=== PATIENT | female | born 1960 ===

== ENCOUNTER 2024-09-25 14:07 | Outpatient (OUT) | payer OTHER, SELFPAY ==
--- OUTSIDE RECORDS SUMMARY | 2020-07-05 07:30 | XMS_ITS | Continuity of Care Document ---
Author Organization [facility] Address [address] [place] [id number] Phone Care Team Providers Care Division Leader Name Role Phone Sherry MUNOZMo Unavailable Unavailable Allergies, Adverse Reactions, Alerts Substance Reaction Status Criticality No Known Allergies Active No Inform ation Medications Medication Instructions Dosage Effective Dates (start - stop) Status Comments amoxicillin 500 mg tablet take 1 tablet by oral route every 8 hours 500 MG - Active atorvastatin 40 mg tablet take 1 tablet by oral route every day 40 MG - Active iron 18 mg tablet - Active Multi Vitamin 9 mg iron/15 mL oral liquid - Active nitroglycerin 0.4 mg/hr transdermal 24 hour patch apply 1 patch by transdermal route every day remove at night for 10-12 hours 1.00 patch - Active metoprolol succinate ER 50 mg tablet,extended release 24 hr take 1 tablet by oral route every day 50 MG - Active lisinopril 5 mg tablet take 1 tablet by oral route every day 5 MG - Active Lasix 20 mg tablet take 1 tablet by oral route every day 20 MG - Active potassium 99 mg tablet - Active Procedures Procedure Date Moderna COVID Vaccine Admin Dose 2 Moderna COVID-19 Vaccine Moderna COVID Vaccine Admin Dose 1 Moderna COVID-19 Vaccine CHIROPRACTIC MANIPULATION CHIROPRACTIC MANIPULATION CHIROPRACTIC MANIPULATION CHIROPRACTIC MANIPULATION CHIROPRACTIC MANIPULATION Limited Oral Eval Panoramic Film Extract; Erupted Th/exposted Rt 020 Intraoral-periapical 1st Film 0 Oral Hygiene Instruction Limited Oral Eval Intraoral-periapical 1st Film 7 Initial Oral Exam IMMUNIZATION ADMIN FLU VAC NO PRSV 4 MARIN 3 YRS+ IMMUNIZATION ADMIN FLU VAC NO PRSV 4 MARIN 3 YRS+ Prophylaxis Adult Oral Hygiene Instruction Comp Oral Eval New/estab Patient 2016 FLU VAC NO PRSV 4 MARIN 3 YRS+ IMMUNIZATION ADMIN FLU VAC NO PRSV 4 MARIN 3 YRS+ Advance Directives Directive Yes / No Effective Date File Name No Information Encounters Encounter Description Practice Location Reason(s) For Visit Diagnoses Date Provider Providers Copied on Encounter [facility], [address] [place] [address], [id number] , tel:[phone] [facility] No Information Jul-0 1 Jaimei DO Hassan. [address] [place] [address], [id number], [place]. tel:[phone] [facility], [address] [place] [address], [id number] , tel:[phone] [facility] No Information 0 1 Sherry Santiago. [address] [place] [address], [id number], [place]. tel:[phone] [facility], [address] [place] [address], [id number] , [place] tel:[phone] [facility] lumbar spine (chief complaint) lumbar spine (chief complaint) Segmental and somatic dysfunction of lumbar regionLow back painSegmental and somatic dysfunction of cervical regionCervicalgi a 1 Landen Chow. [address] [place] [address], [id number], [place]. tel:[phone] [facility], [address] [place] [address], [id number] , tel:[phone] [facility] lumbar spine (chief complaint) lumbar spine (chief complaint) Segmental and somatic dysfunction of lumbar regionLow back painSegmental and somatic dysfunction of cervical regionRadiculopa thy, cervical region 0 Landen Chow. [address] [place], [place], [id number], [place]. tel:[phone] [facility], [address] [place] [address], [id number] , tel: [phone] [facility] cervical spine (chief complaint) cervical spine (chief complaint) Segmental and somatic dysfunction of lumbar regionLow back painSegmental and somatic dysfunction of cervical regionRadiculopa thy, cervical region 0 Landen Chow. [address] [place] [address], [id number], [place]. tel:[phone] [facility], [address] [place] [address], [id number] , tel:[phone] [facility] lumbar spine (chief complaint) lumbar spine (chief complaint) Segmental and somatic dysfunction of lumbar regionRadiculopa thy, lumbar regionSegmental and somatic dysfunction of cervical regionRadiculopa thy, cervical region 0 Landen Chow. [address] [place] [address], [id number], [place]. tel:[phone] [facility], [address] [place] [address], [id number] , tel: [phone] [facility] lumbar spine (chief complaint) lumbar spine (chief complaint) Segmental and somatic dysfunction of lumbar regionRadiculopa thy, lumbar regionSegmental and somatic dysfunction of cervical regionRadiculopa thy, cervical region 0 Landen Chow. [address] [place] [address], [id number], [place]. tel:[phone] [facility], [address] [place] [address], [id number] , tel:[phone] [facility] Ext. (chief complaint) Encounter for screening for dental disorders 0 Martinez DMD Latonia. [address], [place], [id number], [place]. tel:[phone] [facility], [address] [facility], [place], [place], [id number] , [place] tel:[phone] Dental Clinic Encounter for screening for dental disorders 0 Martinez DMD [place]. [address] [facility], [place], [place], [id number], [place]. tel:[phone] [facility], [address] [facility], [place], [place], [id number] , [place] tel: [phone] [facility] dental limited (chief complaint) Encounter for screening for dental disorders 7 Trevon tanner DMD [place] . [address] [place], [address], [place]. tel:[phone] [facility], [address] [place], [place], [id number] , [place] tel: [phone] [facility] prophy (chief complaint) Encounter for screening for dental disorders 7 Sherry Santiago. [address] [place], [place], [id number], [place]. tel:[phone] [facility], [address] [place], [place], [id number] , [place] tel:[phone] Dental Clinic Encounter for screening for dental disorders 7 Bret ORO Jinbo. [address] [place], [address], [place]. tel:[phone] [facility], [address] [place], [place], [id number] , [place] tel:[phone] Dental Clinic Encounter for screening for dental disorders 7 Bret ORO Jinbo. [address] [place], [address], [place]. tel:[phone] [facility], [address] [place], [place], [id number] , [place] tel:[phone] [facility] No Information 5 Sherry Santiago. [address] [place] [address], [id number], [place]. tel:[phone] Family History Family Member Type Diagnosis Age At Onset Mother Problem (finding) coronary arterioscleros is Father Problem (finding) Oral Cancer (Cause Of D eath) 68 Immunizations Vaccine Date Status Comments Moderna COVID administered Source: New Im munization Record Moderna COVID administered Source: New Im munization Record Influenza virus vaccine, injectable, quadrivalent, split virus, preservative free, 3 years or older Fluarix, Flulaval or Fluzone Quad administered Source: New Immuniza tion Record Influenza virus vaccine, injectable, quadrivalent, split virus, preservative free, 3 years or older Fluarix, Flulaval or Fluzone Quad administered Source: New Immuniza tion Record Payers Payer name Insurance type Covered republican ID Authoriza tion(s) [employer] [id number] [employer] [id number] [employer] [id number] Social History Type Description Quantity Date Captured Comments Alcohol Use Details Unknown Caffeine Use Details Unknown Tobacco Use Status No Information Smoking Status No Information Sex Female Sexual Orientation Straight or heterosexual Gender Identity Female Chief Complaint And Reason For Visit No Information Reason For Referral Reason For Referral No Information History Of Present Illness Encounter Date Complaint History Of Prese nt Illness lumbar spine lumbar spine Pt reports flare up of neck, mid and low back pain for last two weeks. Prednisone for 5 days helped but pain returned. lumbar spine lumbar spine Pt reports sligh t improvement since last visit. cervical spine cervical spine Pt reports doing better overall though mentions low back soreness today. lumbar spine lumbar spine Pt reports doing well after first visit with no adverse effects. lumbar spine lumbar spine C/O chronic low back and neck pain that extends down post leg on left and causes numbness/tingling in hands. She described the original onset as 10 years ago. She has a tens unit implant in lower back on left.Sx are the result of regular ADL'S. No specific injury or trauma is noted. Pain is primarily at L3-L5 PVM on the Rt. & Lt. and extends to the SI joint, Rt. & Lt. Pain is local, dull, with radiation to the lower extremities. No sensory or motor changes noted. Symptoms present with a pain scale of 9 (VAS = 1-10). Pain interferes with regular ADL's. Increase in pain with movement/ROM and ADL'S. Some decrease in symptoms with rest. No change in the pain pattern from the onset of symptoms. Pain pattern is as prior times. Ext. dental limited dental limited prophy Functional Status Date Functional Assessmen t No Information Instructions Date Instruction Additional Infor mation No Information Assessments Type Assessment Date No Information Patient Care Teams Name Effective Dates (start - stop) Status Members No Information
--- OUTSIDE RECORDS SUMMARY | 2024-09-25 14:10 | XMS_ITS | Encounter Summary ---
Author Organization [facility] Address [address] [place] [address] Care Team Providers Care Diabetes Clinical Manager Name Role Phone CruzTerri bolañosalejandro Lo DO Primary Care Provider Source Comments In the event this information is protected by the Federal Confidentiality of Alcohol and Drug AbusePatient Records regulations: The Federal rules restrict any use of the information to criminally investigate or prosecute any alcohol or drug abuse patient.[facility] Encounter Details Date Type Department Care Team (Late st Contact Info) Description 12/26/2018 Get Medical Advice Pain Management [address] [place] [address] Nelson Damon MD [address] [place] [address] RE: Visit Follow Up Question Social History Tobacco Use Types Packs/Day Years Used Date Smoking Tobacco: Former Cigarettes Q uit: 06/11/2010 Smokeless Tobacco: Never Alcohol Use Standard Drinks/Week Comments No 0 (1 standard drink = 0.6 oz pur e alcohol) occasionally Comments No Sex and Gender Information Value Date Recorded Sex Assigned at Not on file Legal Sex Female 10:13 AM EST Gender Identity Not on file Sexual Orientation Not on file 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 Answer Date of Assessment Author No 09/28/2014 2:37 PM EDT Junior Lyons LPN * Are you blind or do you have serious difficulty seeing, even when wearing glasses? Answer Date of Assessment Author No 09/28/2014 2:37 PM EDT Junior Lyons LPN * Do you have serious difficulty walking or climbing stairs? Answer Date of Assessment Author Yes 09/28/2014 2:37 PM EDT Junior Lyons LPN * Do you have difficulty dressing or bathing? Answer Date of Assessment Author No 09/28/2014 2:37 PM EDT Junior Lyons LPN * Because of a physical, mental, or emotional condition, do you have difficulty doing errands alone such as visiting a doctor's office or shopping? Answer Date of Assessment Author No 09/28/2014 2:37 PM EDJunior Ronquillo LPN documented as of this encounter Mental Status * Because of a physical, mental, or emotional condition, do you have serious difficulty concentrating, remembering, or making decisions? Answer Entry Date Author No 09/28/2014 2:37 PM EDJunior Ronquillo LPN documented in this encounter Plan of Treatment Not on file documented as of this encounter Visit Diagnoses Not on filedocumented in this encounter Care Teams Diabetes Clinical Manager Relationship Specialty Start Date End Date Emily Cruz DO PCP - General Family Medicine 05/08/11 documented as of this encounter
--- OUTSIDE RECORDS SUMMARY | 2024-09-25 14:10 | XMS_ITS | Encounter Summary ---
Author Organization [facility] Address [address] [place] [address] Care Team Providers Care Rolls Baker Name Role Phone CruzTerri bolañosalejandro Lo DO Primary Care Provider Source Comments In the event this information is protected by the Federal Confidentiality of Alcohol and Drug AbusePatient Records regulations: The Federal rules restrict any use of the information to criminally investigate or prosecute any alcohol or drug abuse patient.[facility] Encounter Details Date Type Department Care Team (Late st Contact Info) Description 10/27/2019 Get Medical Advice Pain Management [id number] [place] [address] Nelson Damon MD [address] [place] [address] RE: Visit Follow Up Question Social History Tobacco Use Types Packs/Day Years Used Date Smoking Tobacco: Former Cigarettes Q uit: 06/11/2010 Smokeless Tobacco: Never Alcohol Use Standard Drinks/Week Comments No 0 (1 standard drink = 0.6 oz pur e alcohol) occasionally PHQ-2 Answer Date Recorded PHQ-2 score 5 04/21/2019 Comments No Sex and Gender Information Value Date Recorded Sex Assigned at Not on file Legal Sex Female 10:13 AM EST Gender Identity Not on file Sexual Orientation Not on file 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 No / Unsure 10/26/2019 10:38 AM EDT documented as of this encounter Functional Status * Are you deaf or do you have serious difficulty hearing? Answer Date of Assessment Author No 09/28/2014 2:37 PM EDT Junior Lyons LPN * Are you blind or do you have serious difficulty seeing, even when wearing glasses? Answer Date of Assessment Author No 09/28/2014 2:37 PM EDT Junoir Lyons LPN * Do you have serious [...] 09/28/2014 2:37 PM EDT Junior Lyons LPN documented as of this encounter Mental Status * Because of a physical, mental, or emotional condition, do you have serious difficulty concentrating, remembering, or making decisions? Answer Entry Date Author No 09/28/2014 2:37 PM EDT Junior Lyons LPN documented in this encounter Plan of Treatment Not on file documented as of this encounter Visit Diagnoses Not on filedocumented in this encounter Care Teams Rolls Baker Relationship Specialty Start Date End Date Emily Cruz DO PCP - General Family Medicine 05/08/11 documented as of this encounter
--- OUTSIDE RECORDS SUMMARY | 2024-09-25 14:10 | XMS_ITS | Encounter Summary ---
Author Organization [facility] Address [address] [place] [address] Care Team Providers Care Patient Ombudsperson Name Role Phone CruzTerri bolañoscey Teresita Primary Care Provider Source Comments In the event this information is protected by the Federal Confidentiality of Alcohol and Drug AbusePatient Records regulations: The Federal rules restrict any use of the information to criminally investigate or prosecute any alcohol or drug abuse patient.[facility] Encounter Details Date Type Department Care Team (Late st Contact Info) Description 08/30/2018 Get Medical Advice Pain Management [id number] [place] [phone] Louise Suazo PA-C RE: Upcoming Appointment Question Social History Tobacco Use Types Packs/Day [...] 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 Answer Date of Assessment Author No 09/28/2014 2:37 PM EDT Junior Lyons yuri M, SUGAR REPROCESS OPERATOR HEAD * Are you blind or do you have serious difficulty seeing, even when wearing glasses? Answer Date of Assessment Author No 09/28/2014 2:37 PM EDT Junior Lyons yuri Tobin, SUGAR REPROCESS OPERATOR HEAD * Do you have serious difficulty walking or climbing stairs? Answer Date of Assessment Author Yes 09/28/2014 2:37 PM EDT Junior Lyons yuri Tobin, SUGAR REPROCESS OPERATOR HEAD * Do you have difficulty dressing or bathing? Answer Date of Assessment Author No 09/28/2014 2:37 PM EDT Junior Lyons yuri Tobin, SUGAR REPROCESS OPERATOR HEAD * Because of a physical, mental, or emotional condition, do you have difficulty doing errands alone such as visiting a doctor's office or shopping? Answer Date of Assessment Author No 09/28/2014 2:37 PM EDT Junior Lyons yuri Tobin, SUGAR REPROCESS OPERATOR HEAD documented as of this encounter Mental Status * Because of a physical, mental, or emotional condition, do you have serious difficulty concentrating, remembering, or making decisions? Answer Entry Date Author No 09/28/2014 2:37 PM EDT Junior Lyons yuri M, SUGAR REPROCESS OPERATOR HEAD documented in this encounter Miscellaneous Notes * Telephone Encounter - Maeve Barakat RN - 08/30/2018 3:02 PM EDT Office visit 08/25/18, 1) Suture removal performed today 2) RTC in 4 weeks for follow-up visit with YON. She needs programming adjustment with [employer]. 3) Counseled patient regarding the importance of activity modification. ??Appointment 08/31/18. Maeve Barakat RN documented in this encounter Plan of Treatment Not on file documented as of this encounter Visit Diagnoses Not on filedocumented in this encounter Care Teams Patient Ombudsperson Relationship Specialty Start Date End Date Emily Cruz DO PCP - General Family Medicine 05/08/11 documented as of this encounter
--- OUTSIDE RECORDS SUMMARY | 2024-09-25 14:10 | XMS_ITS | Encounter Summary ---
Author Organization [facility] Address [address] [place] [address] Care Team Providers Care Machine Precision Etcher Name Role Phone Cruz Emily Lo DO Primary Care Provider Source Comments In the event this information is protected by the Federal Confidentiality of Alcohol and Drug AbusePatient Records regulations: The Federal rules restrict any use of the information to criminally investigate or prosecute any alcohol or drug abuse patient.[facility] Encounter Details Date Type Department Care Team (Late st Contact Info) Description 06/11/2020 Get Medical Advice Pain Management [id number] [place] [phone] Louise Suazo PA-C Visit Follow Up Question Social History Tobacco Use Types Packs/Day Years Used Date Smoking Tobacco: Former Cigarettes Q uit: 06/11/2010 Smokeless Tobacco: Never Alcohol Use Standard Drinks/Week Comments No 0 (1 standard drink = 0.6 oz pur e alcohol) occasionally PHQ-2 Answer Date Recorded PHQ-2 score 5 04/21/2019 Area Deprivation Index Answer Date Ramiro rded National Score (1-100), lower number is lower ri sk Not on file 03/09/2020 State Score (1-10), lower number is lower risk N ot on file 03/09/2020 Data from: https://www.neighborhoodatlas.medicine.[facility]/. 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 No / Unsure 06/11/2020 1:48 PM EST documented as of this encounter Functional Status * Are you deaf or do you have serious difficulty hearing? Answer Date of Assessment Author No 09/28/2014 2:37 PM Junior Correia LPN * Are you blind or do you have serious difficulty seeing, even when wearing glasses? Answer Date of Assessment Author No 06/11/2020 5:20 PM EST Louise Suazo PA-C * Do you have serious difficulty walking or climbing stairs? Answer Date of Assessment Author No 06/11/2020 5:20 PM EST Louise Suazo PA-C * Do you have difficulty dressing or bathing? Answer Date of Assessment Author No 06/11/2020 5:20 PM EST Louise Suazo PA-C * Because of a physical, mental, or emotional condition, do you have difficulty doing errands alone such as visiting a doctor's office or shopping? Answer Date of Assessment Author No 06/11/2020 5:20 PM EST Louise Suazo PA-C documented as of this encounter Mental Status * Because of a physical, mental, or emotional condition, do you have serious difficulty concentrating, remembering, or making decisions? Answer Entry Date Author No 06/11/2020 5:20 PM Louise Gaston PA-C documented in this encounter Plan of Treatment Not on file documented as of this encounter Visit Diagnoses Not on filedocumented in this encounter Care Teams Machine Precision Etcher Relationship Specialty Start Date End Date Emily Cruz DO PCP - General Family Medicine 05/08/11 documented as of this encounter
--- OUTSIDE RECORDS SUMMARY | 2024-09-25 14:10 | XMS_ITS | Encounter Summary ---
Author Organization [facility] Address [address] [place] [address] Care Team Providers Care Health Care Recruiter Name Role Phone CruzTerri bolañoscey Teresita Primary Care Provider Source Comments In the event this information is protected by the Federal Confidentiality of Alcohol and Drug AbusePatient Records regulations: The Federal rules restrict any use of the information to criminally investigate or prosecute any alcohol or drug abuse patient.[facility] Encounter Details Date Type Department Care Team (Late st Contact Info) Description 12/30/2018 Get Medical Advice Pain Management [phone] [place] [phone] Louise Suazo PA-C RE: Visit Follow Up Question Social History [...] 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 Answer Date of Assessment Author Yes 09/28/2014 2:37 PM EDT Junior Lyons, GI TECHNICIAN * Do you have difficulty dressing or bathing? Answer Date of Assessment Author No 09/28/2014 2:37 PM EDT Junior Lyons, GI TECHNICIAN * Because of a physical, mental, or [...] on filedocumented in this encounter Care Teams Health Care Recruiter Relationship Specialty Start Date End Date Emily Cruz DO PCP - General Family Medicine 05/08/11 documented as of this encounter
--- OUTSIDE RECORDS SUMMARY | 2024-09-25 14:10 | XMS_ITS | Encounter Summary ---
Author Organization [facility] Address [address] [place] [address] Care Team Providers Care Relay Tester Helper Name Role Phone Cruz, Emily Lo DO Primary Care Provider Source Comments In the event this information is protected by the Federal Confidentiality of Alcohol and Drug AbusePatient Records regulations: The Federal rules restrict any use of the information to criminally investigate or prosecute any alcohol or drug abuse patient.[facility] Encounter Details Date Type Department Care Team (Late st Contact Info) Description 10/07/2020 Get Medical Advice Pain Management [address] [phone] Louise Suazo PA-C RE: Visit Follow Up [...] N ot on file 03/09/2020 Data from: https://www.neighborhoodatlas.medicine.[facility]/. 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 Unable to assess 10/02/2020 12:55 PM EDT documented as of this encounter Functional [...] of Assessment Author No 06/11/2020 5:20 PM Louise Gaston PA-C * Do you have difficulty dressing or bathing? Answer Date of Assessment Author No 06/11/2020 5:20 PM Louise Gaston PA-C * Because of a physical, mental, or emotional condition, do you have difficulty doing errands alone such as visiting a doctor's office or shopping? Answer Date of Assessment Author No 06/11/2020 5:20 PM Louise Gaston PA-C documented as of this encounter Mental Status * Because of a physical, mental, or emotional condition, do you have serious difficulty concentrating, remembering, or making decisions? Answer Entry Date Author No 06/11/2020 5:20 PM EST Keriotis, Louise, PA-C documented in this encounter Plan of Treatment Not on file documented as of this encounter Visit Diagnoses Not on filedocumented in this encounter Care Teams Relay Tester Helper Relationship Specialty Start Date End Date Emily Cruz DO PCP - General Family Medicine 05/08/11 documented as of this encounter
--- OUTSIDE RECORDS SUMMARY | 2024-09-25 14:10 | XMS_ITS | Encounter Summary ---
Author Organization [facility] Address [address] [place] [address] Care Team Providers Care Chief Ophthalmic Technician Name Role Phone CruzTerri bolañosalejandro Lo DO Primary Care Provider Source Comments In the event this information is protected by the Federal Confidentiality of Alcohol and Drug AbusePatient Records regulations: The Federal rules restrict any use of the information to criminally investigate or prosecute any alcohol or drug abuse patient.[facility] Encounter Details Date Type Department Care Team (Late st Contact Info) Description 11/16/2017 Get Medical Advice Pain Management [address] [place] [address] Nelson Damon MD [address] [place] [address] RE: Visit Follow Up Question [...] 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
--- OUTSIDE RECORDS SUMMARY | 2024-09-25 14:10 | XMS_ITS | Encounter Summary ---
Author Organization [facility] Address [address] [place] [address] Care Team Providers Care Police Crime Scene Technician Name Role Phone CruzTerri bolañoscey Teresita DO Primary Care Provider Source Comments In the event this information is protected by the Federal Confidentiality of Alcohol and Drug AbusePatient Records regulations: The Federal rules restrict any use of the information to criminally investigate or prosecute any alcohol or drug abuse patient.[facility] Encounter Details Date Type Department Care Team (Late st Contact Info) Description 04/06/2019 Get Medical Advice Pain Management [id number] [phone] Louise Suazo PA-C RE: Upcoming Appointment Question Social History Tobacco Use Types Packs/Day Years Used Date Smoking Tobacco: Former Cigarettes Q uit: 06/11/2010 Smokeless Tobacco: Never Alcohol Use Standard Drinks/Week Comments No 0 (1 standard drink = 0.6 oz pur e alcohol) occasionally PHQ-2 Answer Date Recorded PHQ-2 Score 0 04/02/2019 Comments No Sex and Gender Information Value Date Recorded Sex Assigned at Not on file Legal Sex Female 10:13 AM EST Gender Identity Not on file Sexual Orientation Not on file 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 She is currently taking Lyrica 50mg BID. States she has much less relief than when she was taking the neurontin and cymbalta. Has follow up on 04/21/2019, but needs refill until then. documented in this encounter Plan of Treatment Not on file documented as of this encounter Visit Diagnoses Not on filedocumented in this encounter Care Teams Police Crime Scene Technician Relationship Specialty Start Date End Date Emily Cruz DO PCP - General Family Medicine 05/08/11 documented as of this encounter
--- OUTSIDE RECORDS SUMMARY | 2024-09-25 14:10 | XMS_ITS | Encounter Summary ---
Author Organization [facility] Address [address] [place] [address] Care Team Providers Care Ammonia Box Operator Name Role Phone CruzTerri bolañosalejandro Lo DO Primary Care Provider Source Comments In the event this information is protected by the Federal Confidentiality of Alcohol and Drug AbusePatient Records regulations: The Federal rules restrict any use of the information to criminally investigate or prosecute any alcohol or drug abuse patient.[facility] Encounter Details Date Type Department Care Team (Late st Contact Info) Description 09/30/2020 Get Medical Advice Pain Management [address] [place] [address] Nelson Damon MD [address] [place] [address] Visit Follow Up Question Social History Tobacco [...] N ot on file 03/09/2020 Data from: https://www.neighborhoodatlas.medicine.[facility]/. 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
--- OUTSIDE RECORDS SUMMARY | 2024-09-25 14:10 | XMS_ITS | Clinical Summary ---
Author Organization [facility] Address [address] [place] [address] Care Team Providers Care Cooler Worker Name Role Phone Sriram Kunz MD Unavailable Kyle Norwood MD Primary Care Provider [phone] Abel Nunez DO Unavailable Unatirnidadi Byron Herman MD Unavailable Unavailabl e Allergies No known active allergies Medications meloxicam (MOBIC) 15 MG Tab take 15 mg by mouth daily.. Takes every day. Active gabapentin 400 MG Cap take 800 mg by mouth 4 times daily. Active atorvastatin 80 MG Tab take 1 tablet by mouth at bedtime.. 30 tablet 6 Active metoprolol 25 MG tab regular release take 1 tablet by mouth every 12 hours.. 60 tablet 6 Active furOSEmide 40 MG Tab Take 40 mg (one tab) TWICE a day for one week. Starting 10/30 take 40 mg (one tab) ONCE a day until changed by your physician 45 tablet 6 Active ferrous sulfate 324 (65 FE) MG Tab DR take 1 tablet by mouth 3 times daily.. 90 tablet 6 Active docusate 100 MG Cap take 1 capsule by mouth 2 times daily as needed.. 60 capsule 6 Active Multiple Vitamin (MULTIVITAMIN) Tab take 1 tablet by mouth daily.. 30 tablet 6 Active potassium chloride 20 MEQ Tab CR Take 20 mEq (one tab) TWICE a day for one week. Starting 10/30 take 20 mEq (one tab) ONCE a day until changed by your physician Do not take potassium if / when your physician stops your lasix 45 tablet 3 6 Active AMIOdarone 200 MG Tab take 1 tablet by mouth daily.. 30 tablet 1 6 Active oxyCODONE-aceta minophen 5-325 MG Tab take 1 tablet by mouth every 8 hours as needed for Severe Pain.. 40 tablet 6 Active cephALEXin 500 MG Cap take 500 mg by mouth every 6 hours.. Active Active Problems Problem Noted Date Diagnosed Date Troponin level elevated 10/14/2015 Overview (10/14/2015): Normal ECG Hypertension 10/14/2015 Family History Medical History Relation Name Comments Cancer Father at 75 Myocardial Infarction Mother 79 y/o ; CAD with stents Heart Surgery Sister CABG x 4 Relation Name Status Comments Father Mother Alive Sister Alive Social History Tobacco Use Types Packs/Day Years Used Date Smoking Tobacco: Former Cigarettes 0.2 4 Comments No Sex and Gender Information Value Date Recorded Sex Assigned at Not on file Legal Sex Female 6:56 AM EDT Gender Identity Female 11/24/2016 4:39 PM EDT Sexual Orientation Not on file Last Filed Vital Signs Vital Sign Reading Time Taken Comments Blood Pressure 113/74 11/20/2015 3:20 PM EDT Pulse 71 11/20/2015 3:20 PM EDT Temperature 36.9 C (98.4 F) 11/20/2015 3:20 PM EDT Respiratory Rate 16 11/20/2015 3:20 PM EDT Oxygen Saturation 98% 11/20/2015 3:20 PM EDT Inhaled Oxygen Concentration - - Weight 79.8 kg (176 lb) 11/20/2015 3:20 PM EDT Height 162.6 cm (5' 4 ) 11/20/2015 3:20 PM EDT Body Mass Index 30.21 11/20/2015 3:20 PM EDT Plan of Treatment Health Maintenance Due Date Last Done Comments HEPATITIS C VIRUS SCREENING 1960 TETANUS 1960 HIV SCREENING DISCUSSION 1975 TDAP (ADULT) 1979 CERVICAL CANCER SCREENING DISCUSSION 1981 MAMMOGRAM SCREENING DISCUSSION 2000 COLORECTAL CANCER SCREENING DISCUSSION 2005 PNEUMOCOCCAL VACCINE SERIES (1 of 1 - PCV) 2010 ZOSTER (SHINGLES) VACCINE (1 of 2) 2010 LIPID SCREENING 10/14/2020 10/15/2015 COVID-19 VACCINE (1 - 2023-2 5 season) 2023 INFLUENZA VACCINE (Season Ended) 2024 RSV VACCINE (1 - 1-dose 75+ series) 2035 HEP B VACCINE Aged Out No longer elig ible based on patient's age to complete this topic Procedures Procedure Name Priority Date/Time Associated Diagnosis Comments LIPID PANEL W CALCULATED LDL Routine 10/15/2015 1:50 AM EDT from Last 3 Months or Most Recently Relevant to Health Maintenance Results * (ABNORMAL) LIPID PANEL W CALCULATED LDL (10/15/2015 1:50 AM EDT) CHOLESTEROL 183 <200 mg/dL [facility] Comment: [<200 mg/dL: Desirable] [200-239 mg/dL: Borderline High] [>239 mg/dL: High] TRIGLYCERIDES-TR IGE 187(H) <150 mg/dL [facility] Comment: [<150 mg/dL: Desirable] [150-199 mg/dL: Borderline] [200-499 mg/dL: High] [>500 mg/dL: Very High] HDL CHOLESTEROL 35(L) >60.0 mg/dL [facility] Comment: [<40 mg/dL: Low (High Risk)] [>59 mg/dL: High (Low Risk)] LDL CHOLESTEROL, CALCULATED 111(H) 0 - 99 mg/dL [facility] Comment: [<100 mg/dL: Optimal] [100-129 mg/dL: Near Optimal] [130-159 mg/dL: Borderline High] [160-189 mg/dL: High] [>189 mg/dL: Very High] CHOLESTEROL, TOTAL/HDL 5.2(H) <4.5 [facility] Comment:[<4.5: Low risk] NON-HDL CHOLESTEROL (CHOL-HDL) 148(H) <130 mg/dL [facility] 10/15/2015 1:50 AM EDT 10/15/2015 2:31 AM EDT us Mckenzie Rangel MD CHEMISTRY ORDERABLES Final Resul t [facility], [facility] [address] [place] [address] from Last 3 Months or Most Recently Relevant to Health Maintenance Insurance MMO Member Subscriber Plan / Payer (Ef fective 2014-Present) Name:SHARON VILLAVICENCIO A Relation to Subscriber:Self Name:Sharon Villavicencio Payer ID:Not on file Type:Not on file Address: [place] [id number] Advance Directives For more information, please contact: [phone] (7:30 AM - 6PM [facility], Wednesday-Wednesday) * Full Code (Latest Code Status on File) Date Activated Date Inactivated Comments 10/17/2015 6:09 PM 10/23/2015 2:17 PM Care Teams Cooler Worker Relationship Specialty Start Date End Date Kyle Norwood MD PCP - General Family Medicine 10/18/15 Abel Nunez DO PCP - Referring 1 Cardiovascular Disease 10/18/15 Sriram Kunz MD Cardiac Surgery 10/15/15 Byron Otoole MD Assistant Finance Director Cardiovascular Disease 11/18/15
--- OUTSIDE RECORDS SUMMARY | 2024-09-25 14:10 | XMS_ITS | Encounter Summary ---
Author Organization [facility] Address [address] [place] [address] Care Team Providers Care Paver Name Role Phone CruzTerri bolañosalejandro Lo DO Primary Care Provider Source Comments In the event this information is protected by the Federal Confidentiality of Alcohol and Drug AbusePatient Records regulations: The Federal rules restrict any use of the information to criminally investigate or prosecute any alcohol or drug abuse patient.[facility] Encounter Details Date Type Department Care Team (Late st Contact Info) Description 09/06/2020 Get Medical Advice Pain Management [address] [place] [address] Nelson Damon MD [address] [place] [address] Upcoming Appointment Question Social History Tobacco Use [...] N ot on file 03/09/2020 Data from: https://www.neighborhoodatlas.medicine.[facility]/. 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 No / Unsure 08/13/2020 1:23 PM EDT documented as of this encounter [...] on filedocumented in this encounter Care Teams Paver Relationship Specialty Start Date End Date Emily Cruz DO PCP - General Family Medicine 05/08/11 documented as of this encounter
--- OUTSIDE RECORDS SUMMARY | 2024-09-25 14:10 | XMS_ITS | Encounter Summary ---
Author Organization [facility] Address [address] [place] [address] Care Team Providers Care Steel Unloader Name Role Phone Cruz, Emily Lo DO Primary Care Provider Source Comments In the event this information is protected by the Federal Confidentiality of Alcohol and Drug AbusePatient Records regulations: The Federal rules restrict any use of the information to criminally investigate or prosecute any alcohol or drug abuse patient.[facility] Encounter Details Date Type Department Care Team (Late st Contact Info) Description 10/08/2020 Get Medical Advice Pain Management [address] [phone] Louise Suazo PA-C RE: Visit Follow Up [...] N ot on file 03/09/2020 Data from: https://www.neighborhoodatlas.medicine.[facility]/. 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
--- OUTSIDE RECORDS SUMMARY | 2024-09-25 14:10 | XMS_ITS | Encounter Summary ---
Author Organization [facility] Address [address] [place] [address] Care Team Providers Care Java Security Engineer Name Role Phone Curz, Emily Lo DO Primary Care Provider Source Comments In the event this information is protected by the Federal Confidentiality of Alcohol and Drug AbusePatient Records regulations: The Federal rules restrict any use of the information to criminally investigate or prosecute any alcohol or drug abuse patient.[facility] Encounter Details Date Type Department Care Team (Late st Contact Info) Description 09/30/2020 Get Medical Advice Pain Management [address] [phone] Louise Suazo PA-C RE: Visit Follow Up [...] N ot on file 03/09/2020 Data from: https://www.neighborhoodatlas.medicine.[facility]/. 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
--- OUTSIDE RECORDS SUMMARY | 2024-09-25 14:10 | XMS_ITS | Encounter Summary ---
Author Organization [facility] Address [address] [place] [address] Care Team Providers Care Flame Degreaser Name Role Phone Sriram Kunz MD Unavailable Kyle Norwood MD Primary Care Provider [phone] Abel Nunez DO Unavailable Unavai Byron Herman MD Unavailable Unavailabl e Reason for Visit * Reason Onset Date Comments Post-Discharge Follow Up 11/01/2015 At home without complaints. Currently working with physical therapy. Encounter Details Date Type Department Care Team (Late st Contact Info) Description 11/01/2015 Telephone [facility] [address] [place] [address] Rita Mcarthur RN Post-Discharge Follow Up (At home without complaints. Currently working with physical therapy.) Social History Tobacco Use Types Packs/Day Years Used Date Smoking Tobacco: Former Cigarettes 0.2 4 Comments No Sex and Gender Information Value Date Recorded Sex Assigned at Not on file Legal Sex Female 6:56 AM EDT Gender Identity Female 11/24/2016 4:39 PM EDT Sexual Orientation Not on file documented as of this encounter Functional Status * Are you deaf or do you have serious difficulty hearing? Answer Date of Assessment Author No 10/14/2015 6:00 PM EDT Lita Beach RN * Are you blind or do you have serious difficulty seeing, even when wearing glasses? Answer Date of Assessment Author No 10/14/2015 6:00 PM EDT Lita Beach RN * Do you have serious difficulty walking or climbing stairs (5 years or older)? Answer Date of Assessment Author No 10/14/2015 6:00 PM EDT Lita Beach RN * Do you have difficulty dressing or bathing (5 yrs or older)? Answer Date of Assessment Author No 10/14/2015 6:00 PM Lita England RN * Because of a physical, mental, or emotional condition, do you have difficulty doing errands alone such as visiting a doctor's office or shopping (5 yrs or older)? Answer Date of Assessment Author No 10/14/2015 6:00 PM Lita England RN documented as of this encounter Mental Status * Because of a physical, mental, or emotional condition, do you have serious difficulty concentrating, remembering, or making decisions (5 yrs or older)? Answer Entry Date Author No 10/14/2015 6:00 PM Lita England RN documented in this encounter Plan of Treatment Not on file documented as of this encounter Visit Diagnoses Not on filedocumented in this encounter Care Teams Flame Degreaser Relationship Specialty Start Date End Date Kyle Norwood MD PCP - General Family Medicine 10/18/15 Abel Nunez DO PCP - Referring 1 Cardiovascular Disease 10/18/15 Sriram Kunz MD Cardiac Surgery 10/15/15 Byron Otoole MD Solution Make Up Operator Cardiovascular Disease 11/18/15 documented as of this encounter
--- OUTSIDE RECORDS SUMMARY | 2024-09-25 14:10 | XMS_ITS | Encounter Summary ---
Author Organization [facility] Address [address] [place] [address] Care Team Providers Care Energy Professional Name Role Phone Cruz, Emily Lo DO [...] Care Team (Late st Contact Info) Description 08/19/2020 Get Medical Advice Pain Management [address] [phone] Louise Suazo PA-C RE: Visit Follow Up [...] N ot on file 03/09/2020 Data from: https://www.neighborhoodatlas.medicine.[facility]/. 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
--- OUTSIDE RECORDS SUMMARY | 2024-09-25 14:10 | XMS_ITS | Encounter Summary ---
Author Organization [facility] Address [address] [place] [address] Care Team Providers Care Director Insurance Name Role Phone CruzTerri bolañoscey Teresita Primary Care Provider Source Comments In the event this information is protected by the Federal Confidentiality of Alcohol and Drug AbusePatient Records regulations: The Federal rules restrict any use of the information to criminally investigate or prosecute any alcohol or drug abuse patient.[facility] Encounter Details Date Type Department Care Team (Late st Contact Info) Description 08/03/2018 Get Medical Advice Pain Management [address] [phone] Louise Suazo PA-C RE: Upcoming Appointment Question [...] 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 Answer Date of Assessment Author No 09/28/2014 2:37 PM EDT Junior Lyons, ENGINE LATHE OPERATOR * Are you blind or do you have serious difficulty seeing, even when wearing glasses? Answer Date of Assessment Author No 09/28/2014 2:37 PM EDT Junior Lyons, ENGINE LATHE OPERATOR * Do you have serious difficulty walking or climbing stairs? Answer Date of Assessment Author Yes 09/28/2014 2:37 PM EDT Junior Lyons, ENGINE LATHE OPERATOR * Do you have difficulty dressing or bathing? Answer Date of Assessment Author No 09/28/2014 2:37 PM EDT Junior Lyons, ENGINE LATHE OPERATOR * Because of a physical, mental, or emotional condition, do you have difficulty doing errands alone such as visiting a doctor's office or shopping? Answer Date of Assessment Author No 09/28/2014 2:37 PM EDT Junior Lyons, ENGINE LATHE OPERATOR documented as of this encounter Mental Status * Because of a physical, mental, or emotional condition, do you have serious difficulty concentrating, remembering, or making decisions? Answer Entry Date Author No 09/28/2014 2:37 PM EDT Junior Lyons LPN documented in this encounter Miscellaneous Notes * Telephone Encounter - Nabila Amanda I (Rn), RN - 08/05/2018 8:10 AM EDT Spoke with patient this morning who advised me that she spoke with Dr. Nunez yesterday regarding her blood thinner (Plavix). He told her to stop taking it. He will send a letter to that affect. Also told me that Dr. Nunez is taking her off this permanently and she will be going on baby aspirin after her surgery. Dr. Nunez# [phone] Nabila Amanda RN documented in this encounter Plan of Treatment Not on file documented as of this encounter Visit Diagnoses Not on filedocumented in this encounter Care Teams Director Insurance Relationship Specialty Start Date End Date Emily Cruz DO PCP - General Family Medicine 05/08/11 documented as of this encounter
--- OUTSIDE RECORDS SUMMARY | 2024-09-25 14:10 | XMS_ITS | Encounter Summary ---
Author Organization [facility] Address [address] [place] [address] Care Team Providers Care Ceramic Coater Machine Name Role Phone CruzTerri bolañosalejandro Lo DO Primary Care Provider Source Comments In the event this information is protected by the Federal Confidentiality of Alcohol and Drug AbusePatient Records regulations: The Federal rules restrict any use of the information to criminally investigate or prosecute any alcohol or drug abuse patient.[facility] Encounter Details Date Type Department Care Team (Late st Contact Info) Description 10/21/2020 Patient Msg Pain Management [address] [place] [address] Nelson Damon MD [address] [place] [address] Its always my pleasure Social History Tobacco Use Types Packs/Day Years [...] N ot on file 03/09/2020 Data from: https://www.neighborhoodatlas.medicine.[facility]/. 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 No / Unsure 10/17/2020 7:50 AM EDT documented as of this encounter [...] on filedocumented in this encounter Care Teams Ceramic Coater Machine Relationship Specialty Start Date End Date Emily Cruz DO PCP - General Family Medicine 05/08/11 documented as of this encounter
--- OUTSIDE RECORDS SUMMARY | 2024-09-25 14:10 | XMS_ITS | Encounter Summary ---
Author Organization [facility] Address [address] [place] [address] Care Team Providers Care Block Mason Name Role Phone CruzTerri bolañosalejandro Lo DO Primary Care Provider Source Comments In the event this information is protected by the Federal Confidentiality of Alcohol and Drug AbusePatient Records regulations: The Federal rules restrict any use of the information to criminally investigate or prosecute any alcohol or drug abuse patient.[facility] Encounter Details Date Type Department Care Team (Late st Contact Info) Description 10/20/2020 Get Medical Advice Pain Management [address] [place] [address] Nelson Damon MD [address] [place] [address] Visit Follow Up Question Social [...] N ot on file 03/09/2020 Data from: https://www.neighborhoodatlas.medicine.[facility]/. 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
--- OUTSIDE RECORDS SUMMARY | 2024-09-25 14:10 | XMS_ITS | Encounter Summary ---
Author Organization [facility] Address [address] [place] [address] Care Team Providers Care Warehouse Supervisor Name Role Phone Cruz, Emily Lo DO Primary Care Provider Source Comments In the event this information is protected by the Federal Confidentiality of Alcohol and Drug AbusePatient Records regulations: The Federal rules restrict any use of the information to criminally investigate or prosecute any alcohol or drug abuse patient.[facility] Encounter Details Date Type Department Care Team (Late st Contact Info) Description 03/15/2021 Get Medical Advice Pain Management [address] [place] [address] Nelson Damon MD [address] [place] [address] Pain over my back and my right leg Social History Tobacco Use Types Packs/Day Years Used Date Smoking Tobacco: Former Cigarettes Q uit: 06/11/2010 Smokeless Tobacco: Never Alcohol Use Standard Drinks/Week Comments No 0 (1 standard drink = 0.6 oz pur e alcohol) occasionally PHQ-2 Answer Date Recorded PHQ-2 score 6 02/02/2021 Area Deprivation Index Answer Date Ramiro rded National Score (1-100), lower number is lower ri sk Not on file 03/09/2020 State Score (1-10), lower number is lower risk N ot on file 03/09/2020 Data from: https://www.neighborhoodatlas.medicine.[facility]/. 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 No / Unsure 03/18/2021 8:30 AM EST documented as of this encounter Functional [...] on filedocumented in this encounter Care Teams Warehouse Supervisor Relationship Specialty Start Date End Date Emily Cruz DO PCP - General Family Medicine 05/08/11 documented as of this encounter
--- OUTSIDE RECORDS SUMMARY | 2024-09-25 14:10 | XMS_ITS | Encounter Summary ---
Author Organization [facility] Address [address] [place] [address] Care Team Providers Care Laundrette Owner Name Role Phone CruzTerri bolañosalejandro Lo DO Primary Care Provider Source Comments In the event this information is protected by the Federal Confidentiality of Alcohol and Drug AbusePatient Records regulations: The Federal rules restrict any use of the information to criminally investigate or prosecute any alcohol or drug abuse patient.[facility] Encounter Details Date Type Department Care Team (Late st Contact Info) Description 10/17/2020 Get Medical Advice Pain Management [address] [place] [address] Nelson Damon MD [address] [place] [address] RE: Visit Follow Up Question [...] N ot on file 03/09/2020 Data from: https://www.neighborhoodatlas.medicine.[facility]/. 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
--- OUTSIDE RECORDS SUMMARY | 2024-09-25 14:10 | XMS_ITS | Encounter Summary ---
Author Organization [facility] Address [address] [place] [address] Care Team Providers Care Mate Fishing Vessel Name Role Phone Emily Cruz DO Primary Care Provider Source Comments In the event this information is protected by the Federal Confidentiality of Alcohol and Drug AbusePatient Records regulations: The Federal rules restrict any use of the information to criminally investigate or prosecute any alcohol or drug abuse patient.[facility] Encounter Details Date Type Department Care Team (Late st Contact Info) Description 04/29/2021 Patient Msg Pain Management [address] [place] [address] Provider, Ccf Rescheduled Procedure Date and Time Social History Tobacco Use Types Packs/Day Years [...] file 03/09/2020 Data from: https://www.neighborhoodatlas.medicine.[facility]/. 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 No / Unsure 04/15/2021 12:00 PM EST documented as of this encounter [...] on filedocumented in this encounter Care Teams Mate Fishing Vessel Relationship Specialty Start Date End Date Emily Cruz DO PCP - General Family Medicine 05/08/11 documented as of this encounter
--- OUTSIDE RECORDS SUMMARY | 2024-09-25 14:10 | XMS_ITS | Encounter Summary ---
Author Organization [facility] Address [address] [place] [address] Care Team Providers Care Compounder Sterile Products Name Role Phone CruzTerri bolañosalejandro Lo DO Primary Care Provider Source Comments In the event this information is protected by the Federal Confidentiality of Alcohol and Drug AbusePatient Records regulations: The Federal rules restrict any use of the information to criminally investigate or prosecute any alcohol or drug abuse patient.[facility] Encounter Details Date Type Department Care Team (Late st Contact Info) Description 02/06/2018 Get Medical Advice Pain Management [address] [place] [address] Nelson Damon MD [address] [place] [address] RE: Visit Follow Up Question [...] 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
--- OUTSIDE RECORDS SUMMARY | 2024-09-25 14:10 | XMS_ITS | Encounter Summary ---
Author Organization [facility] Address [address] [place] [address] Care Team Providers Care Top Printing Press Operator Name Role Phone Cruz, Emily Lo DO Primary Care Provider Source Comments In the event this information is protected by the Federal Confidentiality of Alcohol and Drug AbusePatient Records regulations: The Federal rules restrict any use of the information to criminally investigate or prosecute any alcohol or drug abuse patient.[facility] Encounter Details Date Type Department Care Team (Late st Contact Info) Description 03/02/2018 Patient Msg Pain Management [address] [place] [address] Nelson Damon MD [address] [place] [address] RE: Request an Appointment Social History Tobacco Use Types Packs/Day Years [...] 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
--- OUTSIDE RECORDS SUMMARY | 2024-09-25 14:10 | XMS_ITS | Encounter Summary ---
Author Organization [facility] Address [address] [place] [address] Care Team Providers Care Gear Lapper Name Role Phone Cruz, Emily Lo DO Primary Care Provider Source Comments In the event this information is protected by the Federal Confidentiality of Alcohol and Drug AbusePatient Records regulations: The Federal rules restrict any use of the information to criminally investigate or prosecute any alcohol or drug abuse patient.[facility] Encounter Details Date Type Department Care Team (Late st Contact Info) Description 06/04/2020 Patient Msg Pain Management [address] [phone] Louise Suazo PA-C RE: Request an Appointment Social History Tobacco [...] N ot on file 03/09/2020 Data from: https://www.neighborhoodatlas.medicine.[facility]/. 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 Answer Date of Assessment Author Yes 09/28/2014 2:37 PM EDT Junior Lyons, BROKERAGE CLERK * Do you have difficulty dressing or bathing? Answer Date of Assessment Author No 09/28/2014 2:37 PM EDT Junior Lyons, BROKERAGE CLERK * Because of a physical, mental, or [...] on filedocumented in this encounter Care Teams Gear Lapper Relationship Specialty Start Date End Date Emily Cruz DO PCP - General Family Medicine 05/08/11 documented as of this encounter
--- OUTSIDE RECORDS SUMMARY | 2024-09-25 14:10 | XMS_ITS | Encounter Summary ---
Author Organization [facility] Address [address] [place] [address] Care Team Providers Care Mail Distribution Scheme Examiner Name Role Phone Cruz, Emily Lo DO Primary Care Provider Source Comments In the event this information is protected by the Federal Confidentiality of Alcohol and Drug AbusePatient Records regulations: The Federal rules restrict any use of the information to criminally investigate or prosecute any alcohol or drug abuse patient.[facility] Encounter Details Date Type Department Care Team (Late st Contact Info) Description 11/11/2020 Get Medical Advice Pain Management [address] [phone] Louise Suazo PA-C RE: Visit Follow Up [...] N ot on file 03/09/2020 Data from: https://www.neighborhoodatlas.medicine.[facility]/. 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 No / Unsure 10/31/2020 12:58 PM EDT documented as of this encounter [...] on filedocumented in this encounter Care Teams Mail Distribution Scheme Examiner Relationship Specialty Start Date End Date Emily Cruz DO PCP - General Family Medicine 05/08/11 documented as of this encounter
--- OUTSIDE RECORDS SUMMARY | 2024-09-25 14:10 | XMS_ITS | Encounter Summary ---
Author Organization [facility] Address [address] [place] [address] Care Team Providers Care Diesel Pile Driver Operator Name Role Phone CruzTerri bolañoscey Teresita DO Primary Care Provider Source Comments In the event this information is protected by the Federal Confidentiality of Alcohol and Drug AbusePatient Records regulations: The Federal rules restrict any use of the information to criminally investigate or prosecute any alcohol or drug abuse patient.[facility] Encounter Details Date Type Department Care Team (Late st Contact Info) Description 10/17/2019 Get Medical Advice Pain Management [address] [phone] Louise Suazo PA-C RE: Upcoming Appointment Question [...] 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 No / Unsure 10/20/2019 4:07 PM EDT documented as of this encounter [...] on filedocumented in this encounter Care Teams Diesel Pile Driver Operator Relationship Specialty Start Date End Date Emily Cruz DO PCP - General Family Medicine 05/08/11 documented as of this encounter
--- OUTSIDE RECORDS SUMMARY | 2024-09-25 14:10 | XMS_ITS | Encounter Summary ---
Author Organization [facility] Address [address] [place] [address] Care Team Providers Care Hotel Operation Manager Name Role Phone Cruz, Emily Lo DO Primary Care Provider Source Comments In the event this information is protected by the Federal Confidentiality of Alcohol and Drug AbusePatient Records regulations: The Federal rules restrict any use of the information to criminally investigate or prosecute any alcohol or drug abuse patient.[facility] Encounter Details Date Type Department Care Team (Late st Contact Info) Description 09/30/2020 Get Medical Advice Pain Management [address] [phone] Louise Suazo PA-C RE: Upcoming Appointment Question [...] N ot on file 03/09/2020 Data from: https://www.neighborhoodatlas.medicine.[facility]/. 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
--- OUTSIDE RECORDS SUMMARY | 2024-09-25 14:10 | XMS_ITS | Encounter Summary ---
Author Organization [facility] Address [address] [place] [address] Care Team Providers Care Vp Digital Marketing Social Media And Crm Name Role Phone CruzTerri bolañosalejandro Lo DO Primary Care Provider Source Comments In the event this information is protected by the Federal Confidentiality of Alcohol and Drug AbusePatient Records regulations: The Federal rules restrict any use of the information to criminally investigate or prosecute any alcohol or drug abuse patient.[facility] Encounter Details Date Type Department Care Team (Late st Contact Info) Description 11/19/2019 Get Medical Advice Pain Management [address] [phone] Louise Suazo PA-C RE: Visit Follow Up [...] 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
--- OUTSIDE RECORDS SUMMARY | 2024-09-25 14:10 | XMS_ITS | Encounter Summary ---
Author Organization [facility] Address [address] [place] [address] Care Team Providers Care Coin Collector Name Role Phone Cruz, Emily Lo DO Primary Care Provider Source Comments In the event this information is protected by the Federal Confidentiality of Alcohol and Drug AbusePatient Records regulations: The Federal rules restrict any use of the information to criminally investigate or prosecute any alcohol or drug abuse patient.[facility] Encounter Details Date Type Department Care Team (Late st Contact Info) Description 03/06/2019 Get Medical Advice Pain Management [address] [phone] Louise Suazo PA-C RE: Visit Follow Up Question Social History Tobacco Use Types Packs/Day Years Used Date Smoking Tobacco: Former Cigarettes Q uit: 06/11/2010 Smokeless Tobacco: Never Alcohol Use Standard Drinks/Week Comments No 0 (1 standard drink = 0.6 oz pur e alcohol) occasionally PHQ-2 Answer Date Recorded PHQ-2 Score 4 02/23/2019 Comments No Sex and Gender Information Value Date Recorded Sex Assigned at Not on file Legal Sex Female 10:13 AM EST Gender Identity Not on file Sexual Orientation Not on file 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 1. Refill Percocet 5-325mg BID #60 start dates 03/03 & and 04/02/19 2. Will increase venlafaxine ER to 75 mg dose daily, #30, R1. 3. Continue Gabapentin 800mg Q6H 4.??Start lidociane 5% oinment 5. Continue??Lidoderm patches ?? 6. Will ask RN to investigate why Lyrica was denied as gabapentin was not effective for pt. 7.??RTC in 2 months for medication refill. Has follow up appointment on 04/21/2019 Terri Arriaza documented in this encounter Plan of Treatment Not on file documented as of this encounter Visit Diagnoses Not on filedocumented in this encounter Care Teams Coin Collector Relationship Specialty Start Date End Date Emily Cruz DO PCP - General Family Medicine 05/08/11 documented as of this encounter
--- OUTSIDE RECORDS SUMMARY | 2024-09-25 14:10 | XMS_ITS | Encounter Summary ---
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 No / Unsure 08/25/2019 10:26 AM EDT documented as of this encounter [...] filedocumented in this encounter Care Teams Director Trading Relationship Specialty Start Date End Date Emily Cruz DO PCP - General Family Medicine 05/08/11 documented as of this encounter
--- OUTSIDE RECORDS SUMMARY | 2024-09-25 14:10 | XMS_ITS | Encounter Summary ---
Author Organization [facility] Address [address] [place] [address] Care Team Providers Care Reclaimer Name Role Phone Cruz, Emily Lo DO Primary Care Provider Source Comments In the event this information is protected by the Federal Confidentiality of Alcohol and Drug AbusePatient Records regulations: The Federal rules restrict any use of the information to criminally investigate or prosecute any alcohol or drug abuse patient.[facility] Encounter Details Date Type Department Care Team (Late st Contact Info) Description 12/30/2020 Get Medical Advice Pain Management [id number] [phone] Louise Suazo PA-C RE: Visit Follow Up [...] N ot on file 03/09/2020 Data from: https://www.neighborhoodatlas.medicine.[facility]/. 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 No / Unsure 12/24/2020 2:02 PM EDT documented as of this encounter [...] on filedocumented in this encounter Care Teams Reclaimer Relationship Specialty Start Date End Date Emily Cruz DO PCP - General Family Medicine 05/08/11 documented as of this encounter
--- OUTSIDE RECORDS SUMMARY | 2024-09-25 14:10 | XMS_ITS | Encounter Summary ---
Author Organization [facility] Address [address] [place] [address] Care Team Providers Care Masonry Inspector Name Role Phone Anthony Emily Lo DO Primary Care Provider Source Comments In the event this information is protected by the Federal Confidentiality of Alcohol and Drug AbusePatient Records regulations: The Federal rules restrict any use of the information to criminally investigate or prosecute any alcohol or drug abuse patient.[facility] Encounter Details Date Type Department Care Team (Late st Contact Info) Description 05/26/2021 Patient Msg Pain Management [id number] [phone] Provider, [facility]cf Covid Test Social History Tobacco Use Types Packs/Day Years [...] N ot on file 03/09/2020 Data from: https://www.neighborhoodatlas.medicine.[facility]/. 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 No / Unsure 05/29/2021 12:22 PM EST documented as of this encounter Functional Status * Are you deaf or do you have serious difficulty hearing? Answer Date of Assessment Author No 09/28/2014 2:37 PM ERICKT Junior Lyons, DENISE * Are you blind [...] on filedocumented in this encounter Care Teams Masonry Inspector Relationship Specialty Start Date End Date Emily Cruz DO PCP - General Family Medicine 05/08/11 documented as of this encounter
--- OUTSIDE RECORDS SUMMARY | 2024-09-25 14:10 | XMS_ITS | Encounter Summary ---
Author Organization [facility] Address [address] [place] [address] Care Team Providers Care Rigging Up Worker Name Role Phone Cruz, Emily Lo DO Primary Care Provider Source Comments In the event this information is protected by the Federal Confidentiality of Alcohol and Drug AbusePatient Records regulations: The Federal rules restrict any use of the information to criminally investigate or prosecute any alcohol or drug abuse patient.[facility] Encounter Details Date Type Department Care Team (Late st Contact Info) Description 11/21/2020 Get Medical Advice Pain Management [phone] [phone] Louise Suazo PA-C RE: Medication Question (Not Renewal) Social History Tobacco Use Types Packs/Day Years [...] N ot on file 03/09/2020 Data from: https://www.neighborhoodatlas.medicine.[facility]/. 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
--- OUTSIDE RECORDS SUMMARY | 2024-09-25 14:10 | XMS_ITS | Encounter Summary ---
Author Organization [facility] Address [address] [place] [address] Care Team Providers Care Budget Director Name Role Phone Cruz Emily Lo DO Primary Care Provider Source Comments In the event this information is protected by the Federal Confidentiality of Alcohol and Drug AbusePatient Records regulations: The Federal rules restrict any use of the information to criminally investigate or prosecute any alcohol or drug abuse patient.[facility] Reason for Visit * Reason Comments Radiology MRI Encounter Details Date Type Department Care Team (Late st Contact Info) Description 09/27/2020 Radiology [facility] [place] [address] [place], [place] [phone] Abel Dela Cruz RT(R) Radiology MRI Social History Tobacco Use Types Packs/Day Years [...] N ot on file 03/09/2020 Data from: https://www.neighborhoodatlas.medicine.[facility]/. 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 No / Unsure 09/27/2020 11:53 AM EDT documented as of this encounter [...] Louise Gaston PA-C documented in this encounter Progress Notes * Abel Dela Cruz RT(R) - 09/27/2020 1:41 PM EDT RADIOLOGY SERVICE PROGRESS NOTE DATE OF SERVICE: September 27, 2020 TIME OF SERVICE: 1 pm EVENT: EXAM/PROCEDURE NOT COMPLETED - pt with pain Medtronic pain stimulator which requires technical review. ADDITIONAL EVENT DETAILS: N/A SIGNATURE: RT Jessica(R) PATIENT NAME: Fernanda Quick DATE: September 27, 2020 TIME: 1:42 PM PAGER/CONTACT #: documented in this encounter Plan of Treatment Not on file documented as of this encounter Visit Diagnoses Not on filedocumented in this encounter Care Teams Budget Director Relationship Specialty Start Date End Date Emily Cruz DO PCP - General Family Medicine 05/08/11 documented as of this encounter
--- OUTSIDE RECORDS SUMMARY | 2024-09-25 14:11 | XMS_ITS | Encounter Summary ---
Author Organization [facility] Address [address] [place] [address] Care Team Providers Care Process Supervisor Name Role Phone Cruz Emily Lo DO Primary Care Provider Source Comments In the event this information is protected by the Federal Confidentiality of Alcohol and Drug AbusePatient Records regulations: The Federal rules restrict any use of the information to criminally investigate or prosecute any alcohol or drug abuse patient.[facility] Encounter Details Date Type Department Care Team (Late st Contact Info) Description 04/06/2023 Patient Msg Pain Management [address] [phone] Provider, Ccf Appointment Reminder Social History Tobacco Use Types Packs/Day Years Used Date Smoking Tobacco: Former Cigarettes Q uit: 06/11/2010 Smokeless Tobacco: Never Alcohol Use Standard Drinks/Week Comments No 0 (1 standard drink = 0.6 oz pur e alcohol) occasionally PHQ-2 Answer Date Recorded PHQ-2 score 5 11/22/2021 Area Deprivation Index Answer Date Ramiro rded National Score (1-100), lower number is lower ri sk 96 10/20/2022 State Score (1-10), lower number is lower risk 9 10/20/2022 Data from: https://www.neighborhoodatlas.medicine.[facility]/. 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 Answer Date of Assessment Author No 09/28/2014 2:37 PM EDJunior Ronquillo LPN * Are you blind or do [...] Date Author No 06/11/2020 5:20 PM EST Louise Suazo PA-C documented in this encounter Plan of Treatment Not on file documented as of this encounter Visit Diagnoses Not on filedocumented in this encounter Care Teams Process Supervisor Relationship Specialty Start Date End Date Emily Cruz DO PCP - General Family Medicine 05/08/11 documented as of this encounter
--- OUTSIDE RECORDS SUMMARY | 2024-09-25 14:11 | XMS_ITS | Encounter Summary ---
Author Organization [facility] Address [address] [place] [address] Care Team Providers Care Retail Marketing Coordinator Name Role Phone Anthony Emily Lo DO Primary Care Provider Source Comments In the event this information is protected by the Federal Confidentiality of Alcohol and Drug AbusePatient Records regulations: The Federal rules restrict any use of the information to criminally investigate or prosecute any alcohol or drug abuse patient.[facility] Encounter Details Date Type Department Care Team (Late st Contact Info) Description 08/22/2021 Patient Msg Pain Management [address] [phone] Provider, Cclasha OPERS Form Social History Tobacco Use Types Packs/Day Years Used Date Smoking Tobacco: Former Cigarettes Q uit: 06/11/2010 Smokeless Tobacco: Never Alcohol Use Standard Drinks/Week Comments No 0 (1 standard drink = 0.6 oz pur e alcohol) occasionally PHQ-2 Answer Date Recorded PHQ-2 score 6 02/02/2021 Area Deprivation Index Answer Date Ramiro rded National Score (1-100), lower number is lower ri sk 95 08/21/2021 State Score (1-10), lower number is lower risk N ot on file 08/21/2021 Data from: https://www.neighborhoodatlas.medicine.[facility]/. 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 No / Unsure 08/19/2021 12:50 PM EDT documented as of this encounter [...] on filedocumented in this encounter Care Teams Retail Marketing Coordinator Relationship Specialty Start Date End Date Emily Cruz DO PCP - General Family Medicine 05/08/11 documented as of this encounter
--- OUTSIDE RECORDS SUMMARY | 2024-09-25 14:11 | XMS_ITS | Patient Health Record ---
Author Organization [facility] Address [facility] [place] [address] Care Team Providers Care Towel Distributor Name Role Phone Nuno Betancourt Unavailable [phone] Reason For Referral No Information Medications Medication SIG (Take, Route, Fr equency, Duration) Notes Start Date End Date Status Metoprolol Tartrate Active Gabapentin Active Percocet Active Formula 3 1% Apply to affected to enails topical BID for 3 months 02/20/2014 Active Mobic Active Social History Tobacco Use: Social History Observation Description Date Details (start date - stop date) Never Smoker NA - NA tobacco use Question Answer Notes Patient is a: non smoker Problems Problem Type SNOMED Code ICD Code Onset Dates Problem Status W/U Status Risk Notes Problem Dermatophytosis of nail (944854162) Dermatophytosis of nail (110.1) Active confirmed Plan Of Treatment No Information Insurance Providers Payer Name Payer Address Payer Phone Subscriber Number Group Number Insured Name Patient Relationship to Insured Coverage Start Date Coverage End Date [employer] [address] [place] [address] [id number] Bud Fernanda clark Self - patient is the insured Medical (General) History Medical History History ICD Code hypertension
--- OUTSIDE RECORDS SUMMARY | 2024-09-25 14:11 | XMS_ITS | Encounter Summary ---
Author Organization [facility] Address [address] [place] [address] Care Team Providers Care Director Of Enterprise Architecture Name Role Phone CruzTerri bolañosalejandro Lo DO Primary Care Provider Source Comments In the event this information is protected by the Federal Confidentiality of Alcohol and Drug AbusePatient Records regulations: The Federal rules restrict any use of the information to criminally investigate or prosecute any alcohol or drug abuse patient.[facility] Encounter Details Date Type Department Care Team (Late st Contact Info) Description 09/15/2021 Get Medical Advice Pain Management [address] [place] [address] Nelson Damon MD [address] [place] [address] Back and right side pain Social History Tobacco Use Types Packs/Day Years [...] N ot on file 08/21/2021 Data from: https://www.neighborhoodatlas.medicine.[facility]/. 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 No / Unsure 09/07/2021 2:03 PM EDT documented as of this encounter [...] filedocumented in this encounter Care Teams Director Of Enterprise Architecture Relationship Specialty Start Date End Date Emily Cruz DO PCP - General Family Medicine 05/08/11 documented as of this encounter
--- OUTSIDE RECORDS SUMMARY | 2024-09-25 14:11 | XMS_ITS | Encounter Summary ---
Author Organization [facility] Address [address] [place] [address] Care Team Providers Care Marine Steward Name Role Phone CruzTerri bolañoscey Teresita DO Primary Care Provider Source Comments In the event this information is protected by the Federal Confidentiality of Alcohol and Drug AbusePatient Records regulations: The Federal rules restrict any use of the information to criminally investigate or prosecute any alcohol or drug abuse patient.[facility] Encounter Details Date Type Department Care Team (Late st Contact Info) Description 08/13/2021 Get Medical Advice Pain Management [address] [place] [address] Eli Jansen, DINING SERVICE WORKER.COUNTER CHECKER [address] [place] [address] Neck, cervical and my knees Social History Tobacco Use Types Packs/Day Years [...] N ot on file 03/09/2020 Data from: https://www.neighborhoodatlas.medicine.[facility]/. 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 No / Unsure 08/13/2021 8:25 PM EDT documented as of this encounter [...] on filedocumented in this encounter Care Teams Marine Steward Relationship Specialty Start Date End Date Emily Cruz DO PCP - General Family Medicine 05/08/11 documented as of this encounter
--- OUTSIDE RECORDS SUMMARY | 2024-09-25 14:11 | XMS_ITS | Encounter Summary ---
Author Organization [facility] Address [address] [place] [address] Phone Care Team Providers Care Mold Burner Name Role Phone Unavailable Primary Care Provider Unavailabl e Encounter Details Date Type Department Care Team (Late st Contact Info) Description 05/01/2021 Orders Only [facility] [address] [place] [address] Conversion, Onbase Social History Tobacco Use Types Packs/Day Years Used Date Smoking Tobacco: Never Assessed Comments Unknown Sex and Gender Information Value Date Recorded Sex Assigned at Not on file Legal Sex Female 5:23 AM EST Gender Identity Not on file Sexual Orientation Not on file documented as of this encounter Plan of Treatment Scheduled Orders Name Type Priority Associated Diagnoses Orde r Schedule OUTSIDE LAB SCAN Lab Ordered: 05/01/2021 OUTSIDE LAB SCAN Lab Ordered: 05/01/2021 OUTSIDE LAB SCAN Lab Ordered: 05/01/2021 documented as of this encounter Visit Diagnoses Not on filedocumented in this encounter
--- OUTSIDE RECORDS SUMMARY | 2024-09-25 14:11 | XMS_ITS | Encounter Summary ---
Author Organization [facility] Address [address] [place] [address] Care Team Providers Care Intelligence Engineer Name Role Phone Cruz, Emily Lo DO Primary Care Provider Source Comments In the event this information is protected by the Federal Confidentiality of Alcohol and Drug AbusePatient Records regulations: The Federal rules restrict any use of the information to criminally investigate or prosecute any alcohol or drug abuse patient.[facility] Encounter Details Date Type Department Care Team (Late st Contact Info) Description 04/09/2020 Get Medical Advice Pain Management [address] [phone] Louise Suazo PA-C RE: Visit Follow Up [...] N ot on file 03/09/2020 Data from: https://www.neighborhoodatlas.medicine.[facility]/. 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 No / Unsure 04/12/2020 10:43 AM EST documented as of this encounter Functional Status * Are you deaf or do you have serious difficulty hearing? Answer Date of Assessment Author No 09/28/2014 2:37 PM EDJunior Ronquillo LPN * Are you blind or do you have serious difficulty seeing, even when wearing glasses? Answer Date of Assessment Author No 09/28/2014 2:37 PM Junior Correia LPN * Do you have serious difficulty walking or climbing stairs? Answer Date of Assessment Author Yes 09/28/2014 2:37 PM Junior Correia LPN * Do you have difficulty dressing or bathing? Answer Date of Assessment Author No 09/28/2014 2:37 PM Junior Correia LPN * Because of a physical, mental, or emotional condition, do you have difficulty doing errands alone such as visiting a doctor's office or shopping? Answer Date of Assessment Author No 09/28/2014 2:37 PM Junior Correia LPN documented as of this encounter Mental Status * Because of a physical, mental, or emotional condition, do you have serious difficulty concentrating, remembering, or making decisions? Answer Entry Date Author No 09/28/2014 2:37 PM EDT Eloy, L yuri M, JAVA DEVELOPMENT MANAGER documented in this encounter Plan of Treatment Not on file documented as of this encounter Visit Diagnoses Not on filedocumented in this encounter Care Teams Intelligence Engineer Relationship Specialty Start Date End Date Emily Cruz DO PCP - General Family Medicine 05/08/11 documented as of this encounter
--- OUTSIDE RECORDS SUMMARY | 2024-09-25 14:11 | XMS_ITS | Encounter Summary ---
Author Organization [facility] Address [address] [place] [address] Care Team Providers Care Mathematical Technician Name Role Phone Cruz, Emily Lo DO Primary Care Provider Source Comments In the event this information is protected by the Federal Confidentiality of Alcohol and Drug AbusePatient Records regulations: The Federal rules restrict any use of the information to criminally investigate or prosecute any alcohol or drug abuse patient.[facility] Encounter Details Date Type Department Care Team (Late st Contact Info) Description 09/22/2022 Get Medical Advice Pain Management [phone] [phone] Louise Suazo PA-C Extreme Pain Social History Tobacco Use Types Packs/Day Years Used Date Smoking Tobacco: Former Cigarettes Q uit: 06/11/2010 Smokeless Tobacco: Never Alcohol Use Standard Drinks/Week Comments No 0 (1 standard drink = 0.6 oz pur e alcohol) occasionally PHQ-2 Answer Date Recorded PHQ-2 score 5 11/22/2021 Area Deprivation Index Answer Date Ramiro rded National Score (1-100), lower number is lower ri sk 95 04/17/2022 State Score (1-10), lower number is lower risk N ot on file 04/17/2022 Data from: https://www.neighborhoodatlas.medicine.[facility]/. 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 Answer Date of Assessment Author No 09/28/2014 2:37 PM EDT Junior Lyons, [employer]INE FRUIT FARMING SUPERVISOR * Are you blind or do you [...] on filedocumented in this encounter Care Teams Mathematical Technician Relationship Specialty Start Date End Date Emily Cruz DO PCP - General Family Medicine 05/08/11 documented as of this encounter
--- OUTSIDE RECORDS SUMMARY | 2024-09-25 14:11 | XMS_ITS | Encounter Summary ---
Author Organization [facility] Address [address] [place] [address] Care Team Providers Care Crew Scheduler Name Role Phone CruzTerri bolañoscey Teresita Primary Care Provider Source Comments In the event this information is protected by the Federal Confidentiality of Alcohol and Drug AbusePatient Records regulations: The Federal rules restrict any use of the information to criminally investigate or prosecute any alcohol or drug abuse patient.[facility] Encounter Details Date Type Department Care Team (Late st Contact Info) Description 10/14/2022 Get Medical Advice Pain Management [address] [phone] Louise Suazo PA-C My appointment Social History Tobacco Use Types Packs/Day Years [...] N ot on file 04/17/2022 Data from: https://www.neighborhoodatlas.medicine.[facility]/. 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 Answer Date of Assessment Author No 09/28/2014 2:37 PM EDT Junior Lyons, MANAGER OF PMO * Are you blind or do you [...] on filedocumented in this encounter Care Teams Crew Scheduler Relationship Specialty Start Date End Date Emily Cruz DO PCP - General Family Medicine 05/08/11 documented as of this encounter
--- OUTSIDE RECORDS SUMMARY | 2024-09-25 14:11 | XMS_ITS | Encounter Summary ---
Author Organization [facility] Address [address] [place] [address] Care Team Providers Care Soil Science Professor Name Role Phone Cruz, Emily Lo DO Primary Care Provider Source Comments In the event this information is protected by the Federal Confidentiality of Alcohol and Drug AbusePatient Records regulations: The Federal rules restrict any use of the information to criminally investigate or prosecute any alcohol or drug abuse patient.[facility] Encounter Details Date Type Department Care Team (Late st Contact Info) Description 09/16/2021 Get Medical Advice Pain Management [address] [place] [address] Nelson Damon MD [address] [place] [address] Mri Social History Tobacco Use Types Packs/Day Years [...] N ot on file 08/21/2021 Data from: https://www.neighborhoodatlas.medicine.[facility]/. 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
--- OUTSIDE RECORDS SUMMARY | 2024-09-25 14:11 | XMS_ITS | Clinical Summary ---
Author Organization [facility] Address [address] [place] [address] Care Team Providers Care Director Sterile Processing Name Role Phone Unallocated, Noms Provider MD Primary Care Provi heather Allergies No known active allergies Medications methylPREDNISol one (Medrol Dospak) 4 MG tabletsIndicati ons:Acute gout of left foot, unspecified cause Follow schedule on MEDROL PACK package instructions to be used as directed 21 tablet 5 Active tiZANidine (Zanaflex) 2 MG tablet Take 2 mg by mouth at bedtime 4 Active Active Problems No known active problems Encounters Date Type Department Care Team Description 07/11/2024 4:40 PM EDT Office Visit [facility] [address] [place] [id number] Juan F Adam DPM Acute gout of left foot, unspecified cause (Primary Dx) from Last 3 Months Family History Relation Name Status Comments Father Mother Alive Social History Tobacco Use Types Packs/Day Years Used Date Smoking Tobacco: Former Cigarettes Smokeless Tobacco: Never Tobacco Cessation:Counseling Given: Yes Alcohol Use Standard Drinks/Week Comments Never 0 (1 standard drink = 0.6 oz pur e alcohol) Comments Unknown Sex and Gender Information Value Date Recorded Sex Assigned at Not on file Legal Sex Female 11:34 PM EDT Gender Identity Not on file Sexual Orientation Not on file Last Filed Vital Signs Vital Sign Reading Time Taken Comments Blood Pressure 121/83 06/18/2021 12:00 PM EDT Pulse - - Temperature - - Respiratory Rate 18 07/11/2024 4:31 PM EDT Oxygen Saturation - - Inhaled Oxygen Concentration - - Weight 81.6 kg (180 lb) 07/11/2024 4:31 PM EDT Height 160 cm (5' 3 ) 07/11/2024 4:31 PM EDT Body Mass Index 31.89 07/11/2024 4:31 PM EDT Plan of Treatment Health Maintenance Due Date Last Done Comments CT Colonography 1960 Colonoscopy 1960 Colorectal Cancer Screening 1960 FIT-DNA 1960 FIT 1960 FOBT 1960 Sigmoidoscopy 1960 HPV/Cotest 1990 Mammogram 2000 Cervical Cancer Screening 08/24/2011 Pap Smear 08/24/2011 08/23/2008 Influenza Vaccine Completed 06/01/2024, , 03/12/2022, Additional history exists Care Teams Director Sterile Processing Relationship Specialty Start Date End Date Unallocated, Noms Provider, [facility] [place] [address] PCP - General Family Medicine 07/11/24
--- OUTSIDE RECORDS SUMMARY | 2024-09-25 14:11 | XMS_ITS | Encounter Summary ---
Author Organization [facility] Address [facility] [place] [address] Care Team Providers Care Wireless Manager Name Role Phone Emily Cruz Primary Care Provider Source Comments In the event this information is protected by the Federal Confidentiality of Alcohol and Drug AbusePatient Records regulations: The Federal rules restrict any use of the information to criminally investigate or prosecute any alcohol or drug abuse patient.[facility] Encounter Details Date Type Department Care Team (Late st Contact Info) Description 08/03/2018 Get Medical Advice Pain Management [address] [place] [address] Nelson Damon MD [address] [place] [address] RE: Visit Follow Up Question [...] 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
--- OUTSIDE RECORDS SUMMARY | 2024-09-25 14:11 | XMS_ITS | Encounter Summary ---
Author Organization [facility] Address [address] [place] [address] Care Team Providers Care Pilot Safety Inspector Name Role Phone Cruz, Emily Lo DO Primary Care Provider Source Comments In the event this information is protected by the Federal Confidentiality of Alcohol and Drug AbusePatient Records regulations: The Federal rules restrict any use of the information to criminally investigate or prosecute any alcohol or drug abuse patient.[facility] Encounter Details Date Type Department Care Team (Late st Contact Info) Description 04/30/2022 Get Medical Advice Pain Management [address] [phone] Louise Suazo PA-C Severe Back Pain Social History Tobacco Use Types Packs/Day [...] N ot on file 04/17/2022 Data from: https://www.neighborhoodatlas.medicine.[facility]/. 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 Answer Date of Assessment Author No 09/28/2014 2:37 PM EDT Junior Lyons, MEDICAL INSTRUCTOR * Are you blind or do you [...] on filedocumented in this encounter Care Teams Pilot Safety Inspector Relationship Specialty Start Date End Date Emily Cruz DO PCP - General Family Medicine 05/08/11 documented as of this encounter
--- OUTSIDE RECORDS SUMMARY | 2024-09-25 14:11 | XMS_ITS | Encounter Summary ---
Author Organization [facility] Address [address] [place] [address] Care Team Providers Care Roving Marker Name Role Phone Cruz, Emily Lo DO Primary Care Provider Source Comments In the event this information is protected by the Federal Confidentiality of Alcohol and Drug AbusePatient Records regulations: The Federal rules restrict any use of the information to criminally investigate or prosecute any alcohol or drug abuse patient.[facility] Encounter Details Date Type Department Care Team (Late st Contact Info) Description 04/13/2020 Get Medical Advice Pain Management [address] [phone] Louise Suazo PA-C RE: Visit Follow Up [...] on file 03/09/2020 Data from: https://www.neighborhoodatlas.medicine.[facility]/. 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
--- OUTSIDE RECORDS SUMMARY | 2024-09-25 14:11 | XMS_ITS | Encounter Summary ---
Author Organization [facility] Address [address] [place] [address] Care Team Providers Care Quality Control Assessor Name Role Phone Anthony Emily Lo DO Primary Care Provider Source Comments In the event this information is protected by the Federal Confidentiality of Alcohol and Drug AbusePatient Records regulations: The Federal rules restrict any use of the information to criminally investigate or prosecute any alcohol or drug abuse patient.[facility] Encounter Details Date Type Department Care Team (Late st Contact Info) Description 08/26/2021 Patient Msg Rheumatology [address] [phone] Kelly Andrews DO [address] [place] [address] Request an Appointment Social History Tobacco Use [...] N ot on file 08/21/2021 Data from: https://www.neighborhoodatlas.medicine.[facility]/. 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
--- OUTSIDE RECORDS SUMMARY | 2024-09-25 14:11 | XMS_ITS | Encounter Summary ---
Author Organization [facility] Address [address] [place] [address] Care Team Providers Care Technical Supervisor Name Role Phone Cruz Emily Lo DO Primary Care Provider Source Comments In the event this information is protected by the Federal Confidentiality of Alcohol and Drug AbusePatient Records regulations: The Federal rules restrict any use of the information to criminally investigate or prosecute any alcohol or drug abuse patient.[facility] Encounter Details Date Type Department Care Team (Late st Contact Info) Description 08/05/2022 Patient Msg Medical Records [address] [place] [address] Provider, Ccf Questionnaire Submission Social History Tobacco Use Types Packs/Day Years [...] N ot on file 04/17/2022 Data from: https://www.neighborhoodatlas.medicine.[facility]/. 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
--- OUTSIDE RECORDS SUMMARY | 2024-09-25 14:11 | XMS_ITS | Encounter Summary ---
Author Organization [facility] Address [address] [place] [address] Care Team Providers Care Air Duct Mechanic Name Role Phone Anthony Emily Lo DO Primary Care Provider Source Comments In the event this information is protected by the Federal Confidentiality of Alcohol and Drug AbusePatient Records regulations: The Federal rules restrict any use of the information to criminally investigate or prosecute any alcohol or drug abuse patient.[facility] Encounter Details Date Type Department Care Team (Late st Contact Info) Description 10/18/2023 Patient Msg Pain Management [address] [phone] Provider, Ccf Schedule Appointment Social History Tobacco Use Types Packs/Day [...] is lower risk 9 10/20/2022 Data from: https://www.neighborhoodatlas.medicine.[facility]/. 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
--- OUTSIDE RECORDS SUMMARY | 2024-09-25 14:11 | XMS_ITS | Encounter Summary ---
Author Organization [facility] Address [address] [place] [address] Care Team Providers Care Engagement Engineer Name Role Phone CruzTerri bolañosalejandro Lo DO Primary Care Provider Source Comments In the event this information is protected by the Federal Confidentiality of Alcohol and Drug AbusePatient Records regulations: The Federal rules restrict any use of the information to criminally investigate or prosecute any alcohol or drug abuse patient.[facility] Encounter Details Date Type Department Care Team (Late st Contact Info) Description 08/05/2022 Patient Msg Pain Management [address] [place] [address] Nelson Damon MD [address] [place] [address] Request an Appointment Social History [...] file 04/17/2022 Data from: https://www.neighborhoodatlas.medicine.[facility]/. 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
--- OUTSIDE RECORDS SUMMARY | 2024-09-25 14:11 | XMS_ITS | Encounter Summary ---
Author Organization [facility] Address [address] [place] [address] Care Team Providers Care Skin Carver Name Role Phone Cruz Emily Lo DO Primary Care Provider Source Comments In the event this information is protected by the Federal Confidentiality of Alcohol and Drug AbusePatient Records regulations: The Federal rules restrict any use of the information to criminally investigate or prosecute any alcohol or drug abuse patient.[facility] Encounter Details Date Type Department Care Team (Late st Contact Info) Description 08/05/2022 Patient Msg Medical Records [address] [place] [address] Provider, Ccf Questionnaire Submission Social History Tobacco [...] N ot on file 04/17/2022 Data from: https://www.neighborhoodatlas.medicine.[facility]/. 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
--- OUTSIDE RECORDS SUMMARY | 2024-09-25 14:11 | XMS_ITS | Encounter Summary ---
Author Organization [facility] Address [address] [place] [address] Care Team Providers Care Physical Sciences Instructor Name Role Phone CruzTerri bolañosalejandro Lo DO [...] Care Team (Late st Contact Info) Description 08/19/2022 Get Medical Advice Pain Management [address] [place] [address] Nelson Damon MD [address] [place] [address] Severe Pain Social History Tobacco Use Types Packs/Day [...] N ot on file 04/17/2022 Data from: https://www.neighborhoodatlas.medicine.[facility]/. 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
--- OUTSIDE RECORDS SUMMARY | 2024-09-25 14:11 | XMS_ITS | Encounter Summary ---
Author Organization [facility] Address [address] [place] [address] Care Team Providers Care Pet Crematory Worker Name Role Phone CruzTerri bolañoscey Teresita Primary Care Provider Source Comments In the event this information is protected by the Federal Confidentiality of Alcohol and Drug AbusePatient Records regulations: The Federal rules restrict any use of the information to criminally investigate or prosecute any alcohol or drug abuse patient.[facility] Encounter Details Date Type Department Care Team (Late st Contact Info) Description 08/01/2018 Get Medical Advice Pain Management [address] [phone] Louise Suazo PA-C RE: Visit Follow Up [...] 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 Answer Date of Assessment Author Yes 09/28/2014 2:37 PM EDT Junior Lyons, CLOTH SHRINKING MACHINE OPERATOR * Do you have difficulty dressing or bathing? Answer Date of Assessment Author No 09/28/2014 2:37 PM EDT Junior Lyons, CLOTH SHRINKING MACHINE OPERATOR * Because of a physical, [...] on filedocumented in this encounter Care Teams Pet Crematory Worker Relationship Specialty Start Date End Date Emily Cruz DO PCP - General Family Medicine 05/08/11 documented as of this encounter
--- OUTSIDE RECORDS SUMMARY | 2024-09-25 14:11 | XMS_ITS | Encounter Summary ---
Author Organization [facility] Address [facility] [place] [address] Care Team Providers Care Douper Name Role Phone Cruz, Emily Teresita DO Primary Care Provider Source Comments In the event this information is protected by the Federal Confidentiality of Alcohol and Drug AbusePatient Records regulations: The Federal rules restrict any use of the information to criminally investigate or prosecute any alcohol or drug abuse patient.[facility] Encounter Details Date Type Department Care Team (Late st Contact Info) Description 10/10/2021 [place] [address] Provider, Ccf MyChart Message Regarding Financial Assistance Social History Tobacco Use Types Packs/Day Years [...] N ot on file 08/21/2021 Data from: https://www.neighborhoodatlas.medicine.[facility]/. 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 No / Unsure 10/07/2021 1:30 PM EDT documented as of this encounter Functional Status * Are you deaf or do you have serious difficulty hearing? Answer Date of Assessment Author No 09/28/2014 2:37 PM EDT Junior Lyons, MOSS PICKER * Are you blind or do you [...] on filedocumented in this encounter Care Teams Douper Relationship Specialty Start Date End Date Emily Cruz DO PCP - General Family Medicine 05/08/11 documented as of this encounter
--- OUTSIDE RECORDS SUMMARY | 2024-09-25 14:11 | XMS_ITS | Encounter Summary ---
Author Organization [facility] Address [address] [place] [address] Care Team Providers Care Assistant Pastry Chef Name Role Phone CruzTerri bolañosalejandro Lo DO Primary Care Provider Source Comments In the event this information is protected by the Federal Confidentiality of Alcohol and Drug AbusePatient Records regulations: The Federal rules restrict any use of the information to criminally investigate or prosecute any alcohol or drug abuse patient.[facility] Encounter Details Date Type Department Care Team (Late st Contact Info) Description 05/17/2024 Get Medical Advice Pain Management [address] [place] [address] Nelson Damon MD [address] [place] [address] Medical records Social History Tobacco Use Types Packs/Day Years [...] is lower risk 9 10/20/2022 Data from: https://www.neighborhoodatlas.[facility]/. 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
--- OUTSIDE RECORDS SUMMARY | 2024-09-25 14:11 | XMS_ITS | Encounter Summary ---
Author Organization [facility] Address [address] [place] [address] Care Team Providers Care Paver Installer Name Role Phone Crzu, Emily Lo DO Primary Care Provider Source Comments In the event this information is protected by the Federal Confidentiality of Alcohol and Drug AbusePatient Records regulations: The Federal rules restrict any use of the information to criminally investigate or prosecute any alcohol or drug abuse patient.[facility] Encounter Details Date Type Department Care Team (Late st Contact Info) Description 10/15/2021 Get Medical Advice Pain Management [address] [phone] Louise Suazo PA-C Neurologist surgeon appointment Social History Tobacco Use Types Packs/Day [...] N ot on file 08/21/2021 Data from: https://www.neighborhoodatlas.medicine.[facility]/. 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 No / Unsure 10/17/2021 1:05 PM EDT documented as of this encounter Functional Status * Are you deaf or do you have serious difficulty hearing? Answer Date of Assessment Author No 09/28/2014 2:37 PM EDT Junior Lyons, HYBRID CAR MECHANIC * Are you blind or do you [...] filedocumented in this encounter Care Teams Paver Installer Relationship Specialty Start Date End Date Emily Cruz DO PCP - General Family Medicine 05/08/11 documented as of this encounter
--- OUTSIDE RECORDS SUMMARY | 2024-09-25 14:11 | XMS_ITS | Encounter Summary ---
Author Organization [facility] Address [address] [place] [address] Care Team Providers Care Environmental Conflict Manager Name Role Phone Cruz, Emily Lo DO Primary Care Provider Source Comments In the event this information is protected by the Federal Confidentiality of Alcohol and Drug AbusePatient Records regulations: The Federal rules restrict any use of the information to criminally investigate or prosecute any alcohol or drug abuse patient.[facility] Encounter Details Date Type Department Care Team (Late st Contact Info) Description 04/23/2020 Get Medical Advice Pain Management [id number] [phone] Louise Suazo PA-C RE: Visit Follow Up [...] N ot on file 03/09/2020 Data from: https://www.neighborhoodatlas.medicine.[facility]/. 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 No / Unsure 04/23/2020 1:29 PM EST documented as of this encounter [...] 2:37 PM EDT Eloy, L yuri M, ORTHOPEDIC TECHNICIAN documented in this encounter Plan of Treatment Not on file documented as of this encounter Visit Diagnoses Not on filedocumented in this encounter Care Teams Environmental Conflict Manager Relationship Specialty Start Date End Date Emily Cruz DO PCP - General Family Medicine 05/08/11 documented as of this encounter
--- OUTSIDE RECORDS SUMMARY | 2024-09-25 14:11 | XMS_ITS | Encounter Summary ---
Author Organization [facility] Address [address] [place] [address] Care Team Providers Care Trade Recruiter Name Role Phone CruzTerri bolañosalejandor Lo DO Primary Care Provider Source Comments In the event this information is protected by the Federal Confidentiality of Alcohol and Drug AbusePatient Records regulations: The Federal rules restrict any use of the information to criminally investigate or prosecute any alcohol or drug abuse patient.[facility] Encounter Details Date Type Department Care Team (Late st Contact Info) Description 04/12/2020 Get Medical Advice Pain Management [address] [place] [address] Nelson Damon MD [address] [place] [address] RE: Visit Follow Up Question [...] N ot on file 03/09/2020 Data from: https://www.neighborhoodatlas.medicine.[facility]/. 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
--- OUTSIDE RECORDS SUMMARY | 2024-09-25 14:11 | XMS_ITS | Clinical Summary ---
Author Organization [facility] Address [address] [place] [address] Phone Care Team Providers Care Medical Assistant Dermatology Name Role Phone Unavailable Primary Care Provider Unavailabl e Allergies No known active allergies Medications albuterol 90 mcg/actuation inhaler Inhale. Active aspirin 81 mg EC tablet Take 2 tablets (162 mg) by mouth once daily. Active DULoxetine (Cymbalta) [address] capsule Take 1 capsule (60 mg) by mouth once daily. Active lidocaine (Lidoderm) 5 % patch Place 1 patch on the skin once daily. Active nitroglycerin (Nitrostat) 0.[address] 1 tablet (0.4 mg) under the tongue every 5 minutes if needed. Active oxyCODONE-acetami nophen (Percocet) 5-325 mg tablet Take 1 tablet by mouth every 8 hours if needed. Active pregabalin (Lyrica) 75 mg capsule Take 1 capsule (75 mg) by mouth 2 times a day. Active tiZANidine (Zanaflex) 4 mg capsule Take 1 capsule (4 mg) by mouth once daily. Active hydroxychloroquin e (Plaquenil) 200 mg tablet Take 1 tablet (200 mg) by mouth 2 times a day. Active metoprolol tartrate (Lopressor) 50 mg tabletIndications :Essential (primary) hypertension TAKE 1 TABLET BY MOUTH TWICE DAILY 180 tablet 3 4 Active nitroglycerin (Nitrodur) 0.2 mg/hr patchIndications: Chest pain, atypical Place 1 patch on the skin once daily. 90 patch 3 4 Active furosemide (Lasix) 40 mg tabletIndications :Edema, unspecified type Take 0.5 tablets (20 mg) by mouth once daily. 45 tablet 3 4 Active potassium chloride CR 20 mEq ER tabletIndications :Atherosclerotic heart disease of [place] coronary artery with unspecified angina pectoris TAKE 1 TABLET BY MOUTH DAILY 90 tablet 3 4 Active atorvastatin (Lipitor) 80 mg tabletIndications :Coronary artery disease involving [place] coronary artery of [place] heart without angina pectoris Take 1 tablet (80 mg) by mouth once daily at bedtime. 90 tablet 1 4 Active Active Problems Problem Noted Date Diagnosed Date Chest pain, atypical 03/12/2023 Assessment & Plan (04/15/2023 3:56 PM EST): Remains with noncardiac musculoskeletal discomfort along mediastinal incision Coronary artery disease invo lving [place] coronary artery of [place] heart without angina pectoris 03/12/2023 Assessment & Plan (04/15/2023 3:54 PM EST): 2016 CABG with early multi graft failure at [facility] July 2020 cardiac cath SVG - OM patent (o/p anastomosis and distal anastomosis with patent stent) SIERRA-LAD occluded SVG-ramus occluded RCA chronic diffuse disease Current daily activity greater than 4 METS without concerning symptoms Edema 03/12/2023 Essential hypertension 03/12/2023 Assessment & Plan (04/15/2023 3:55 PM EST): Optimal in office History of myocardial infarction 03/12/2023 Hyperlipidemia 03/12/2023 Assessment & Plan (04/15/2023 3:55 PM EST): High intensity statin Reports she had lab work completed last week at PCP Moderate episode of recurrent major depressive d isorder 03/12/2023 Obesity (BMI 30.0-34.9) 03/12/2023 Assessment & Plan (04/15/2023 3:55 PM EST): Reviewed the merits of healthy lifestyle choices on overall cardiovascular health. Resolved Problems Problem Noted Date Diagnosed Date Resolved Date Abnormal stress test 03/12/2023 024 Angina pectoris 03/12/2023 04/14/2023 Coronary artery disease with angina pectoris 04/14/2023 S/P CABG (coronary artery bypass graft) 03/12/2023 04/14/2023 S/P PTCA (percutaneous trans luminal coronary angioplasty) 03/12/2023 04/14/2023 Immunizations Immunization Administration Dates Next Due Flu vaccine, quadrivalent, n o egg protein, age 6 month or greater (FLUCELVAX) 03/12/2022 Moderna COVID-19 vaccine, bi valent, blue cap/bean label *Check age/dose* 03/12/2022 Family History Medical History Relation Name Comments No Known Problems Brother Heart attack Father jaw cancer Father Heart attack Mother cva Mother No Known Problems Sister Relation Name Status Comments Brother Father Mother Sister Social History Tobacco Use Types Packs/Day Years Used Date Smoking Tobacco: Former Cigarettes Smokeless Tobacco: Current Tobacco Cessation:Ready to Q uit: Not Asked; Counseling Given: Not Answered Comments:vape Alcohol Use Standard Drinks/Week Comments Never 0 (1 standard drink = 0.6 oz pur e alcohol) PHQ-2 Answer Date Recorded Patient Health Questionnaire-2 Score 4 06/04/2021 Comments Unknown Sex and Gender Information Value Date Recorded Sex Assigned at Not on file Legal Sex Female 5:23 AM EST Gender Identity Not on file Sexual Orientation Not on file Last Filed Vital Signs Vital Sign Reading Time Taken Comments Blood Pressure 128/80 04/14/2023 12:57 PM EST Pulse 78 04/14/2023 12:34 PM EST Temperature - - Respiratory Rate - - Oxygen Saturation - - Inhaled Oxygen Concentration - - Weight 89.4 kg (197 lb) 04/14/2023 12:34 PM EST Height 160 cm (5' 3 ) 04/14/2023 12:34 PM EST Body Mass Index 34.9 04/14/2023 12:34 PM EST Plan of Treatment Health Maintenance Due Date Last Done Comments CT Colonography 1960 Creatinine Level 1960 Echocardiogram 1960 FIT-DNA (Cologuard) 1960 FIT 1960 HIV Screening 1960 Lipid Panel 1960 Potassium Level 1960 Sigmoidoscopy 1960 Yearly Adult Physical 1960 Diabetes Screening 1978 Hepatitis C Screening 1978 Cervical Cancer Screening 1981 HPV/Cotest 1981 Pap Smear 1981 DTaP/Tdap/Td Vaccines (1 - Tdap) 1982 Mammogram 2000 MMR Vaccines (1 of 1 - Standard series) 05/07/2009 Zoster Vaccines (1 of 2) 2010 Pneumococcal Vaccine (3 of 3 - PCV20 or PCV21) 04/05/2023 04/05/2018, 12/30/2017, 04/05/2017 COVID-19 Vaccine (5 - season) 2023 03/23/2023, 03/12/2022, 02/19/2021, Additional history exists Influenza Vaccine (Season Ended) 2024 03/23/2023, 03/12/2022, 01/20/2021, Additional history exists Colonoscopy 11/24/2032 11/24/2022 Colorectal Cancer Screening 11/24/2032 RSV High Risk: (Elderly (60+) or Population) Completed 03/23/2023 HIB Vaccines Aged Out No longer eligi ble based on patient's age to complete this topic HPV Vaccines Aged Out No longer eligi ble based on patient's age to complete this topic Hepatitis A Vaccines Aged Out No long er eligible based on patient's age to complete this topic Hepatitis B Vaccines Aged Out No long er eligible based on patient's age to complete this topic IPV Vaccines Aged Out No longer eligi ble based on patient's age to complete this topic Meningococcal Vaccine Aged Out No my dora eligible based on patient's age to complete this topic Rotavirus Vaccines Aged Out No longer eligible based on patient's age to complete this topic
--- OUTSIDE RECORDS SUMMARY | 2024-09-25 14:11 | XMS_ITS | Encounter Summary ---
Author Organization [facility] Address [address] [place] [address] Care Team Providers Care Shampoo Assistant Name Role Phone Cruz, Emily Lo DO Primary Care Provider Source Comments In the event this information is protected by the Federal Confidentiality of Alcohol and Drug AbusePatient Records regulations: The Federal rules restrict any use of the information to criminally investigate or prosecute any alcohol or drug abuse patient.[facility] Encounter Details Date Type Department Care Team (Late st Contact Info) Description 08/13/2021 Patient Msg Pain Management [address] [place] [address] Eli Jansen, CARAMEL COLORING OPERATOR.[employer] ARCHITECT [address] [place] [address] Request an Appointment Social History [...] N ot on file 03/09/2020 Data from: https://www.neighborhoodatlas.medicine.[facility]/. 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
--- OUTSIDE RECORDS SUMMARY | 2024-09-25 14:11 | XMS_ITS | Clinical Summary ---
Author Organization [facility] Address [facility] [id number] Care Team Providers Care Process Project Engineer Name Role Phone Emily Cruz DO Primary Care Provider Allergies No known active allergies Medications Multivitamin ORAL capsule Take 1 capsule by mouth once daily. Active metoprolol tartrate, short acting, (LOPRESSOR) 25 mg tablet Take 25 mg by mouth twice daily. Active atorvastatin (LIPITOR) 80 mg tablet Take 1 tablet by mouth once daily. 0 11/22/19 16 Active ferrous sulfate EC 324 mg (65 mg iron) TbEC Take 1 tablet by mouth three times daily with meals. 11/22/19 16 Active potassium chloride ER (K-DUR, KLOR-CON) 20 mEq tablet Take 1 tablet by mouth once daily. 11/22/19 16 Active nitroglycerin (NITRO-DUR) 0.2 mg/hr Apply 1 Patch as directed once daily. 0 04/20/19 17 Active Additional Information Patient taking differently:1 patch TRANSDERMALAS NEEDED, Reason: Dosage Adjustment, Reported on 01/08/2022 aspirin, enteric coated (ASPIRIN, ENTERIC COATED) 81 mg EC tablet Take 81 mg by mouth once daily. Active TENS Units hamilton 1 Device four times daily as needed. 1 Device 07/15/19 17 Active Back Brace misc 1 Units continuous. 1 Each 1 06/16/19 19 Active furosemide (LASIX) 40 mg tablet Take 0.5 tablets by mouth once daily. 07/29/19 19 Active albuterol HFA (PROVENTIL HFA, VENTOLIN HFA) 90 mcg/actuation inhaler Inhale 2 Puffs as instructed every 6 hours as needed. 01/25/20 21 Active calcium phosphate dibas/vit D3 (VITAMIN D, WITH CALCIUM, ORAL) 06/04/19 21 Active hydrOXYchloroQU INE (PLAQUENIL) 200 mg tablet Take 1 tablet by mouth twice daily. 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 Add 50 mg to current 200 mg dosing twice daily so you are taking 250 mg twice a day 60 capsule 2 05/18/19 25 Active Pregabalin (LYRICA) 200 mg capsuleIndicati ons:Lumbosacral neuritis,Chroni c bilateral low back pain with bilateral sciatica Take 1 capsule by mouth two times a day for 90 days. 60 capsule 2 05/18/19 25 Active DULoxetine (CYMBALTA) 30 mg capsule Take 1 capsule by mouth two times a day. 180 capsule 05/18/19 25 Active diclofenac (VOLTAREN) 1 % topical gel 4 g four times daily. As Directed. 350 g 2 05/18/19 25 Active gabapentin (NEURONTIN) 800 mg tabletIndicatio ns:Radiculopath y, lumbar region,Lumbosac ral radiculitis Take 1 tablet by mouth four times daily for 180 days. 360 tablet 1 10/26/19 19 019 Discontin ued(Smith ing Therapy/D [place] Form) Active Problems Problem Noted Date Diagnosed Date Chronic bilateral low back pain with bilateral s ciatica 05/29/2021 Chronic pain syndrome 02/05/2016 Sacroiliac joint dysfunction of both sides 02/04 Lumbar neuritis 08/27/2015 DDD (degenerative disc disease), lumbar 12/21/19 12 Lumbosacral neuritis 12/21/2011 Hypertension Low back pain Right leg pain Leg pain, left Overview (02/05/2016): posterior thigh Degeneration of lumbar or lumbosacral interverte bral disc CAD (coronary artery disease) Overview (02/05/2016): s/p CABG 10/16/2015 Arthritis Immunizations Immunization Administration Dates Next Due influenza (IIV4) vaccine, ag e 6 mo - 64 yr, quadrivalent, PF (AFLURIA, FLUARIX, FLULAVAL, FLUZONE) 01/20/2021,01/19/2020,12/30/2017,2016,05/08/2016 Family History Medical History Relation Comments Diabetes Brother Cancer Father Diabetes Father Hypertension Father degenerative disc disease Father Diabetes Mother Hypertension Mother Relation Status Comments Brother Father Mother Alive Social History Tobacco Use Types Packs/Day Years Used Date Smoking Tobacco: Former Cigarettes Q uit: 06/11/2010 Smokeless Tobacco: Never Tobacco Cessation:Counseling Given: No Alcohol Use Standard Drinks/Week Comments No 0 (1 standard drink = 0.6 oz pur e alcohol) occasionally PHQ-2 Answer Date Recorded PHQ-2 score 5 11/22/2021 Area Deprivation Index Answer Date Ramiro rded National Score (1-100), lower number is lower ri sk 96 10/20/2022 State Score (1-10), lower number is lower risk 9 10/20/2022 Data from: https://www.neighborhoodatlas.medicine.[facility].edu/. 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 file Not on file Last Filed Vital Signs Vital Sign Reading Time Taken Comments Blood Pressure 125/91 12/14/2023 9:58 AM EDT Pulse 54 12/14/2023 9:58 AM EDT Temperature 35.6 C (96.1 F) 12/14/2023 9:58 AM EDT Respiratory Rate 16 12/14/2023 9:58 AM EDT Oxygen Saturation 99% 12/14/2023 9:58 AM EDT Inhaled Oxygen Concentration - - Weight 83.9 kg (185 lb) 12/14/2023 9:58 AM EDT Height 161.3 cm (5' 3.5 ) 12/14/2023 9:58 AM EDT Body Mass Index 32.26 12/14/2023 9:58 AM EDT Plan of Treatment Health Maintenance Due Date Last Done Comments Cervical Cancer Screening 1971 Annual PCP Team Chronic Dise ase Visit 1978 Anxiety Screening 1978 Depression Screening 1978 HIV Screening 1978 Hepatitis C Screening 1978 LDL Cholesterol 1978 DTaP,Tdap,Td Vaccine (1 - Tdap) [address] Colonography 2005 Cologuard (FIT-DNA) 2005 Colonoscopy 2005 Colorectal Cancer Screening 2005 Fecal Occult Blood 2005 Lipid Screening 2005 Sigmoidoscopy 2005 Shingrix Vaccine (1 of 2) 2010 Covid-19 Vaccine (6 - 2023-2 5 season) 2023 03/23/2023, 03/12/2022, 02/19/2021, Additional history exists Influenza Vaccine (Season Ended) 2024 03/23/2023, 03/12/2022, 01/20/2021, Additional history exists Diabetes Screening 02/11/2026 02/11/2023, 0 07/28/2018, 10/15/2015 Pneumococcal Vaccine: 50+ Completed 2018, 12/30/2017, 04/05/2017 RSV Vaccine Completed 03/23/2023 Procedures Procedure Name Priority Date/Time Associated Diagnosis Comments COMPREHENSIVE METABOLIC PANEL Routine 02/11/2023 9:57 AM EST Lumbosacral neuritis Radiculopathy, lumbar region from Last 3 Months or Most Recently Relevant to Health Maintenance Results * (ABNORMAL) COMP METABOLIC PANEL (02/11/2023 9:57 AM EST) [facility] Protein, Total 6.6 6.3 - 8.0 g/dL 02/11/2023 10:26 AM [facility] Albumin 4.0 3.9 - 4.9 g/dL 02/11/2023 10:26 AM [facility] Calcium, Total 9.6 8.5 - 10.2 mg/dL 02/11/2023 10:26 AM [facility] Bilirubin, Total 0.4 0.2 - 1.3 mg/dL 02/11/2023 10:26 AM [facility] Alkaline Phosphatase 65 34 - 123 U/L 02/11/2023 10:26 AM [facility] AST 20 13 - 35 U/L 02/11/2023 10:26 AM [facility] ALT 23 7 - 38 U/L 02/11/2023 10:26 AM [facility] Glucose 118(H) 74 - 99 mg/dL 02/11/2023 10:26 AM [facility] Comment: The [place] Diabetes Association (ADA) provides guidance for cutoff values for fasting glucose and random glucose. The ADA defines fasting as no caloric intake for at least 8 hours. Fasting plasma glucose results between 100 to 125 mg/dL indicate increased risk for diabetes (prediabetes). Fasting plasma glucose results greater than or equal to 126 mg/dL meet the criteria for diagnosis of diabetes. In the absence of unequivocal hyperglycemia, results should be confirmed by repeat testing. In a patient with classic symptoms of hyperglycemia or hyperglycemic crisis, random plasma glucose results greater than or equal to 200 mg/dL meet the criteria for diagnosis of diabetes. Reference: Standards of Medical Care in Diabetes 2016, [place] Diabetes Association. Diabetes Care. 2016.39(Suppl 1). BUN 18 7 - 21 mg/dL 02/11/2023 10:26 AM [facility] Creatinine 1.36(H) 0.58 - 0.96 mg/dL 02/11/2023 10:26 AM EST [facility] Sodium 143 136 - 144 mmol/L 02/11/2023 10:26 AM [facility] Potassium 4.2 3.7 - 5.1 mmol/L 02/11/2023 10:26 AM [facility] Chloride 107(H) 97 - 105 mmol/L 02/11/2023 10:26 AM [facility] CO2 26 22 - 30 mmol/L 02/11/2023 10:26 AM [facility] Anion Gap 10 9 - 18 mmol/L 02/11/2023 10:26 AM [facility] Estimated Glomerular Filtration Rate 44(L) >=60 mL/min/1. 73m 02/11/2023 10:26 AM [facility] Comment:Estimated Glomerular Filtration Rate (eGFR) is calculated using the 2020 CKD-EPI creatinine equation. This equation utilizes serum creatinine, sex, and age as parameters. The creatinine assay has traceable calibration to isotope dilution- mass spectrometry. Refer to KDIGO guidelines for clinical interpretation. In patients with unstable renal function, e.g. those with acute kidney injury, the eGFR may not accurately reflect actual GFR. Blood BLOOD SPECIMEN / Unknown Venipuncture / Unknown 02/11/2023 9:57 AM EST 02/11/2023 9:57 AM EST us Leticia Lou APRN.APPLICATION ARCHITECT MANAGER LABORATORY Final Result [facility] [address] [place] [id number] from Last 3 Months or Most Recently Relevant to Health Maintenance Insurance [employer] Advance Directives Documents on File Type Date Recorded Patient Coating And Embossing Unit Operator Expl anation Advance Directive(s) 07/28/2018 4:04 PM Advance Directive(s) 07/28/2018 3:05 PM Care Teams Process Project Engineer Relationship Specialty Start Date End Date Emily Cruz DO PCP - General Family Medicine 05/08/11
--- OUTSIDE RECORDS SUMMARY | 2024-09-25 14:11 | XMS_ITS | Encounter Summary ---
Author Organization [facility] Address [address] [place] [address] Care Team Providers Care Work Order Detailer Name Role Phone CruzTerri bolañosalejandro Lo DO Primary Care Provider Source Comments In the event this information is protected by the Federal Confidentiality of Alcohol and Drug AbusePatient Records regulations: The Federal rules restrict any use of the information to criminally investigate or prosecute any alcohol or drug abuse patient.[facility] Encounter Details Date Type Department Care Team (Late st Contact Info) Description 04/12/2020 Get Medical Advice Pain Management [address] [place] [address] Nelson Damon MD [address] [place] [address] RE: Visit Follow Up Question [...] N ot on file 03/09/2020 Data from: https://www.neighborhoodatlas.medicine.[facility]/. 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
--- OUTSIDE RECORDS SUMMARY | 2024-09-25 14:11 | XMS_ITS | Encounter Summary ---
Author Organization [facility] Address [address] [place] [address] Care Team Providers Care Manager Drilling Name Role Phone CruzTerri bolañosalejandro Lo DO Primary Care Provider Source Comments In the event this information is protected by the Federal Confidentiality of Alcohol and Drug AbusePatient Records regulations: The Federal rules restrict any use of the information to criminally investigate or prosecute any alcohol or drug abuse patient.[facility] Encounter Details Date Type Department Care Team (Late st Contact Info) Description 09/02/2021 Get Medical Advice Pain Management [address] [place] [address] Nelson Damon MD [address] [place] [address] Sciatica Pain Social History Tobacco Use Types Packs/Day [...] N ot on file 08/21/2021 Data from: https://www.neighborhoodatlas.medicine.[facility]/. 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
--- OUTSIDE RECORDS SUMMARY | 2024-09-25 14:11 | XMS_ITS | Encounter Summary ---
Author Organization [facility] Address [address] [place] [address] Phone Care Team Providers Care Tunnel Inspector Name Role Phone Unavailable Primary Care Provider Unavailabl e Encounter Details Date Type Department Care Team (Late st Contact Info) Description 03/30/2024 Scanned Document [facility] [address] [place] [id number] Scanning, Generic Provider Social History Tobacco Use Types Packs/Day Years Used Date Smoking Tobacco: Former Cigarettes Smokeless Tobacco: Current Comments:vape Alcohol Use Standard Drinks/Week Comments Never [...] as of this encounter Plan of Treatment Not on file documented as of this encounter Visit Diagnoses Not on filedocumented in this encounter Additional Health Concerns Assessment Noted Time PHQ-9 Depression Total Score: 15 022 8:55 AM EST documented as of this encounter
--- OUTSIDE RECORDS SUMMARY | 2024-09-25 14:11 | XMS_ITS | Encounter Summary ---
Author Organization [facility] Address [address] [place] [address] Care Team Providers Care Final Inspector Truck Trailer Name Role Phone Cruz, Emily Lo DO Primary Care Provider Source Comments In the event this information is protected by the Federal Confidentiality of Alcohol and Drug AbusePatient Records regulations: The Federal rules restrict any use of the information to criminally investigate or prosecute any alcohol or drug abuse patient.[facility] Encounter Details Date Type Department Care Team (Late st Contact Info) Description 11/02/2023 Patient Msg Pain Management [address] [phone] Marcelle Amos [address] [place] [id number] Procedure Cancelled Social History Tobacco Use Types Packs/Day Years [...] is lower risk 9 10/20/2022 Data from: https://www.neighborhoodatlas.medicine.[facility]/. 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
--- OUTSIDE RECORDS SUMMARY | 2024-09-25 14:11 | XMS_ITS | Encounter Summary ---
Author Organization [facility] Address [address] [place] [address] Care Team Providers Care Academic Support Coordinator Name Role Phone Cruz, Emily Lo DO Primary Care Provider Source Comments In the event this information is protected by the Federal Confidentiality of Alcohol and Drug AbusePatient Records regulations: The Federal rules restrict any use of the information to criminally investigate or prosecute any alcohol or drug abuse patient.[facility] Encounter Details Date Type Department Care Team (Late st Contact Info) Description 04/07/2022 Patient Msg Pain Management [id number] [phone] Louise Suazo PA-C medications Social History Tobacco Use Types Packs/Day Years [...] N ot on file 08/21/2021 Data from: https://www.neighborhoodatlas.medicine.[facility]/. 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 Answer Date of Assessment Author No 09/28/2014 2:37 PM EDT Junior Lyons, PORTER SAMPLE CASE * Are you blind or do you [...] on filedocumented in this encounter Care Teams Academic Support Coordinator Relationship Specialty Start Date End Date Emily Cruz DO PCP - General Family Medicine 05/08/11 documented as of this encounter
--- OUTSIDE RECORDS SUMMARY | 2024-09-25 14:11 | XMS_ITS | Encounter Summary ---
Author Organization [facility] Address [address] [place] [address] Care Team Providers Care Slot Host Name Role Phone CruzTerri bolañosalejandro oL DO Primary Care Provider Source Comments In the event this information is protected by the Federal Confidentiality of Alcohol and Drug AbusePatient Records regulations: The Federal rules restrict any use of the information to criminally investigate or prosecute any alcohol or drug abuse patient.[facility] Encounter Details Date Type Department Care Team (Late st Contact Info) Description 06/11/2021 Get Medical Advice Pain Management [address] [place] [address] Nelson Damon MD [address] [place] [address] New symptom Social History Tobacco Use Types Packs/Day Years [...] on file 03/09/2020 Data from: https://www.neighborhoodatlas.medicine.[facility]/. 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
--- OUTSIDE RECORDS SUMMARY | 2024-09-25 14:11 | XMS_ITS | Encounter Summary ---
Author Organization [facility] Address [address] [place] [address] Care Team Providers Care Corporate Operations Compliance Manager Name Role Phone Cruz, Emily Lo DO Primary Care Provider Source Comments In the event this information is protected by the Federal Confidentiality of Alcohol and Drug AbusePatient Records regulations: The Federal rules restrict any use of the information to criminally investigate or prosecute any alcohol or drug abuse patient.[facility] Encounter Details Date Type Department Care Team (Late st Contact Info) Description 09/17/2021 Get Medical Advice Pain Management [address] [place] [address] Nelson Damon MD [address] [place] [address] Mri Social History Tobacco Use [...] ot on file 08/21/2021 Data from: https://www.neighborhoodatlas.medicine.[facility]/. Last address used for calculation [address] 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
--- OUTSIDE RECORDS SUMMARY | 2024-09-25 14:11 | XMS_ITS | Encounter Summary ---
Author Organization [facility] Address [address] [place] [address] Care Team Providers Care Data Input Clerk Name Role Phone Cruz, Emily Lo DO [...] Care Team (Late st Contact Info) Description 08/21/2022 Get Medical Advice Pain Management [address] [phone] Louise Suazo PA-C Severe pain. Social History Tobacco Use Types Packs/Day Years [...] N ot on file 04/17/2022 Data from: https://www.neighborhoodatlas.medicine.[facility]/. 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 Answer Date of Assessment Author No 09/28/2014 2:37 PM EDT Junior Lyons, CUSTOMER SUCCESS MANAGER * Are you blind or do you [...] on filedocumented in this encounter Care Teams Data Input Clerk Relationship Specialty Start Date End Date Emily Cruz DO PCP - General Family Medicine 05/08/11 documented as of this encounter
--- OUTSIDE RECORDS SUMMARY | 2024-09-25 14:12 | XMS_ITS | Encounter Summary ---
Author Organization [facility] Address [address] [place] [address] Care Team Providers Care Employee Relations Consultant Name Role Phone Cruz, Emily Lo DO Primary Care Provider Source Comments In the event this information is protected by the Federal Confidentiality of Alcohol and Drug AbusePatient Records regulations: The Federal rules restrict any use of the information to criminally investigate or prosecute any alcohol or drug abuse patient.[facility] Encounter Details Date Type Department Care Team (Late st Contact Info) Description 03/29/2022 Get Medical Advice Pain Management [address] [phone] Louise Suazo PA-C Severe Pain Social History Tobacco Use Types [...] ot on file 08/21/2021 Data from: https://www.neighborhoodatlas.medicine.[facility]/. 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 Answer Date of Assessment Author No 09/28/2014 2:37 PM EDT Junior Lyons, DIRECTOR LIFE SALES * Are you blind or do you [...] on filedocumented in this encounter Care Teams Employee Relations Consultant Relationship Specialty Start Date End Date Emily Cruz DO PCP - General Family Medicine 05/08/11 documented as of this encounter
--- OUTSIDE RECORDS SUMMARY | 2024-09-25 14:12 | XMS_ITS | Encounter Summary ---
Author Organization [facility] Address [address] [place] [address] Care Team Providers Care Comsec Manager Name Role Phone CruzTerri bolañoscey Teresita Primary Care Provider Source Comments In the event this information is protected by the Federal Confidentiality of Alcohol and Drug AbusePatient Records regulations: The Federal rules restrict any use of the information to criminally investigate or prosecute any alcohol or drug abuse patient.[facility] Encounter Details Date Type Department Care Team (Late st Contact Info) Description 02/11/2022 Get Medical Advice Pain Management [address] [phone] Louise Suazo PA-C OPERS Social History Tobacco Use Types Packs/Day Years [...] N ot on file 08/21/2021 Data from: https://www.neighborhoodatlas.medicine.[facility]/. 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 Answer Date of Assessment Author No 09/28/2014 2:37 PM EDT Junior Lyons, RESEARCH NUTRITIONIST * Are you blind or do you [...] on filedocumented in this encounter Care Teams Comsec Manager Relationship Specialty Start Date End Date Emily Cruz DO PCP - General Family Medicine 05/08/11 documented as of this encounter
--- OUTSIDE RECORDS SUMMARY | 2024-09-25 14:12 | XMS_ITS | Encounter Summary ---
Author Organization [facility] Address [address] [place] [address] Care Team Providers Care Consultant In Ergonomics And Safety Name Role Phone Cruz, Emily Lo DO Primary Care Provider Source Comments In the event this information is protected by the Federal Confidentiality of Alcohol and Drug AbusePatient Records regulations: The Federal rules restrict any use of the information to criminally investigate or prosecute any alcohol or drug abuse patient.[facility] Encounter Details Date Type Department Care Team (Late st Contact Info) Description 02/10/2022 Get Medical Advice Pain Management [address] [phone] Louise Suazo PA-C Pain flare up Social History Tobacco Use Types Packs/Day Years [...] N ot on file 08/21/2021 Data from: https://www.neighborhoodatlas.medicine.[facility]/. 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 Answer Date of Assessment Author No 09/28/2014 2:37 PM EDT Junior Lyons, BRUSH MATERIAL PREPARER * Are you blind or do you [...] on filedocumented in this encounter Care Teams Consultant In Ergonomics And Safety Relationship Specialty Start Date End Date Emily Cruz DO PCP - General Family Medicine 05/08/11 documented as of this encounter
--- OUTSIDE RECORDS SUMMARY | 2024-09-25 14:12 | XMS_ITS | Encounter Summary ---
Author Organization [facility] Address [address] [place] [address] Care Team Providers Care Physical Therapy Coordinator Name Role Phone Cruz, Emily Lo DO Primary Care Provider Source Comments In the event this information is protected by the Federal Confidentiality of Alcohol and Drug AbusePatient Records regulations: The Federal rules restrict any use of the information to criminally investigate or prosecute any alcohol or drug abuse patient.[facility] Encounter Details Date Type Department Care Team (Late st Contact Info) Description 12/09/2021 Get Medical Advice Pain Management [address] [phone] Louise Suazo PA-C Medication Social History Tobacco Use Types Packs/Day Years [...] N ot on file 08/21/2021 Data from: https://www.neighborhoodatlas.medicine.[facility]/. 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 No / Unsure 12/04/2021 1:24 PM EDT documented as of this encounter [...] filedocumented in this encounter Care Teams Physical Therapy Coordinator Relationship Specialty Start Date End Date Emily Cruz DO PCP - General Family Medicine 05/08/11 documented as of this encounter
--- OUTSIDE RECORDS SUMMARY | 2024-09-25 14:12 | XMS_ITS | Encounter Summary ---
Author Organization [facility] Address [address] [place] [address] Care Team Providers Care Financial Systems Analyst Name Role Phone Cruz, Emily Lo DO Primary Care Provider Source Comments In the event this information is protected by the Federal Confidentiality of Alcohol and Drug AbusePatient Records regulations: The Federal rules restrict any use of the information to criminally investigate or prosecute any alcohol or drug abuse patient.[facility] Encounter Details Date Type Department Care Team (Late st Contact Info) Description 01/01/2022 Get Medical Advice Pain Management [address] [place] [address] Nelson Damon MD [address] [place] [address] Appointment Social History Tobacco Use Types Packs/Day [...] N ot on file 08/21/2021 Data from: https://www.neighborhoodatlas.medicine.[facility]/. 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
--- OUTSIDE RECORDS SUMMARY | 2024-09-25 14:12 | XMS_ITS | Encounter Summary ---
Author Organization [facility] Address [address] [place] [address] Care Team Providers Care Forepart Laster Name Role Phone Cruz, Emily Lo DO Primary Care Provider Source Comments In the event this information is protected by the Federal Confidentiality of Alcohol and Drug AbusePatient Records regulations: The Federal rules restrict any use of the information to criminally investigate or prosecute any alcohol or drug abuse patient.[facility] Encounter Details Date Type Department Care Team (Late st Contact Info) Description 01/01/2022 Get Medical Advice Pain Management [address] [place] [address] Nelson Damon MD [address] [place] [address] Appointment Social History Tobacco Use [...] on file 08/21/2021 Data from: https://www.neighborhoodatlas.medicine.[facility]/. 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
--- NOTE | 2024-09-25 15:19 | P.CN_ITS ---
Consult Note: HPI Data of Consult Patient: new to practice Consult date: 09/25/24 Requesting Physician: Penny Sloan MD Primary Care Provider: Non-Staff Physician, Consult Narrative Reason for consult: low back, right leg pain and weakness Narrative: 64yof who presents for evaluation. longstanding low back pain history, has spinal cord stimulator that does provide relief. recently noticed worsening pain throughout low back with radiation into right leg. has had increased weakness, several instances of leg feeling like it will give out. no recent advanced imaging available for review. uses otc meds. continues in a series of provider directed home exercises >6 weeks, without lasting benefit. cc:: CC: Penny Sloan MD Review of Systems ROS Status of ROS 10 or more systems reviewed and unremark able except as noted in history and below Meds Home Medications and Allergies Home Medications ?Medication ?Instructions ?Recorded ?Confirmed ?Type hydrocodone 5 mg-acetaminophen 325 1 tab PO TID PRN pa in #90 tabs 09/25/24 Rx mg tablet Allergies Allergy/AdvReac Type Severity Reaction Status Date / Time No Known Drug Allergies Allergy Verified 09/25/24 15:14 Exam Narrative Exam Narrative: Psych-alert and oriented x 3. Attentive and appropriate, constitutionally normal, displays normal mood and affect per situation. There are no obvious deficits in memory, reasoning, or intellect.? Skin-no obvious rashes, bruising, erythema noted to the patient's area of pain.? Extremities- extremities are warm with minimal edema and palpable pulses. Lumbar-tenderness to palpation noted in the lumbar spine and paraspinal musculature. Pain is elicited with flexion, extension, and lateral rotation of the lumbar spine. Range of motion is diminished with these motions. Facet loading maneuvers are positive. Strength-noted to be unremarkable with the exception of decreased strength rated at 4 out of 5 in right quadriceps femoris, anterior tibialis. Sensory-no notable sensory deficits in the bilateral lower extremities to touch or pinprick in all dermatomal distributions with the exception to decreased sensation to the right L4, 5, S1 dermatomal distribution Coordination remains intact.? Gait remains non-antalgic. Assessment and Plan Assessment and Plan (1) Lumbar stenosis with neurogenic claudication: Plan 64yof who presents for evaluation. failed conservative measures, as noted. given symptoms and exam findings, coupled with procedural history, will update lumbar mri without contrast for further info. she is in agreement. meds reviewed, uds obtained. will trial norco 5mg tid prn. follow up after imaging.
== END 2024-09-25 14:08 | disposition home or self-care (01) ==
PROVIDERS: Visit Provider Anesthesiology
DX: M48.062 Spinal stenosis, lumbar region with neurogenic claudication (principal)
CPT/HCPCS: G0463

== ENCOUNTER 2024-10-10 13:54 | Outpatient (OUT) | payer OTHER, SELFPAY ==
--- OUTSIDE RECORDS SUMMARY | 2024-10-10 13:56 | XMS_ITS | Encounter Summary ---
Author Organization [facility] Address [address] [place] [address] Care Team Providers Care Cardiovascular Tech Name Role Phone CruzTerri bolañosalejandro Lo DO Primary Care Provider Source Comments In the event this information is protected by the Federal Confidentiality of Alcohol and Drug AbusePatient Records regulations: The Federal rules restrict any use of the information to criminally investigate or prosecute any alcohol or drug abuse patient.[facility] Encounter Details Date Type Department Care Team (Late st Contact Info) Description 04/06/2019 Get Medical Advice Pain Management [address] [phone] Louise Suazo PA-C RE: Upcoming Appointment Question [...] 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
--- OUTSIDE RECORDS SUMMARY | 2024-10-10 13:56 | XMS_ITS | Encounter Summary ---
Author Organization [facility] Address [address] [place] [address] Care Team Providers Care Statistical Clerk Name Role Phone CruzTerri bolañosalejandro Lo DO [...] Description 10/17/2020 Get Medical Advice Pain Management [address] [place] [address] Nelson Damon MD [address] [place] [address] RE: Visit Follow Up Question [...] N ot on file 03/09/2020 Data from: https://www.neighborhoodatlas.medicine.[facility]/. 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
--- OUTSIDE RECORDS SUMMARY | 2024-10-10 13:56 | XMS_ITS | Encounter Summary ---
Author Organization [facility] Address [address] [place] [address] Care Team Providers Care Sausage Stuffer Name Role Phone Cruz, Emily Lo DO [...] Description 03/15/2021 Get Medical Advice Pain Management [address] [place] [address] Nelson Damon MD [address] [place] [address] Pain over my back and [...] on file 03/09/2020 Data from: https://www.neighborhoodatlas.medicine.[facility]/. 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
--- OUTSIDE RECORDS SUMMARY | 2024-10-10 13:56 | XMS_ITS | Encounter Summary ---
Author Organization [facility] Address [address] [place] [address] Care Team Providers Care Tower Operator Name Role Phone Cruz, Emily Lo [...] Description 11/11/2020 Get Medical Advice Pain Management [address] [place] [phone] Louise Suazo PA-C RE: Visit Follow Up [...] N ot on file 03/09/2020 Data from: https://www.neighborhoodatlas.medicine.[facility]/. 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
--- OUTSIDE RECORDS SUMMARY | 2024-10-10 13:56 | XMS_ITS | Clinical Summary ---
Author Organization [facility] Address [address] [place] [address] Care Team Providers Care Public Services Assistant Name Role Phone Sriram Kunz MD Unavailable Kyle Norwood MD Primary Care Provider Abel Nunez DO Unavailable Unatrinidadi Byron Herman MD Unavailable Unavailabl e Allergies [...] CHEMISTRY ORDERABLES Final Resul t LAB, [facility] [address] [place] [address] from Last 3 Months or Most Recently Relevant to Health Maintenance Insurance MMO Member Subscriber Plan / Payer (Ef fective 2014-Present) Name:SHARON VILLAVICENCIO A Relation to Subscriber:Self Name:Sharon Villavicencio Payer ID:Not on file Type:Not on file Address: [place] [id number] Advance Directives For more information, please contact: [phone] (7:30 AM - 6PM [facility], Wednesday-Wednesday) * Full Code (Latest Code Status on File) Date Activated Date Inactivated Comments 10/17/2015 6:09 PM 10/23/2015 2:17 PM Care Teams Public Services Assistant Relationship Specialty Start Date End Date Kyle Norwood MD PCP - General Family Medicine 10/18/15 Abel Nunez DO PCP - Referring 1 Cardiovascular Disease 10/18/15 Sriram Kunz MD Cardiac Surgery 10/15/15 Byron Otoole MD Branch Billing Payroll Clerk Cardiovascular Disease 11/18/15
--- OUTSIDE RECORDS SUMMARY | 2024-10-10 13:56 | XMS_ITS | Encounter Summary ---
Author Organization [facility] Address [address] [place] [address] Care Team Providers Care Food And Beverage Coordinator Name Role Phone Cruz Emily Lo DO [...] Description 06/11/2020 Get Medical Advice Pain Management [address] [place] [phone] Louise Suazo PA-C Visit Follow Up Question [...] N ot on file 03/09/2020 Data from: https://www.neighborhoodatlas.medicine.[facility]/. 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
--- OUTSIDE RECORDS SUMMARY | 2024-10-10 13:56 | XMS_ITS | Encounter Summary ---
Author Organization [facility] Address [address] [place] [address] Care Team Providers Care Circuit Court Magistrate Name Role Phone CruzTerri bolañosalejandro Lo DO Primary Care Provider Source Comments In the event this information is protected by the Federal Confidentiality of Alcohol and Drug AbusePatient Records regulations: The Federal rules restrict any use of the information to criminally investigate or prosecute any alcohol or drug abuse patient.[facility] Encounter Details Date Type Department Care Team (Late st Contact Info) Description 09/06/2020 Get Medical Advice Pain Management [address] [place] [address] Nelson Damon MD [address] [place] [address] Upcoming Appointment Question Social History [...] N ot on file 03/09/2020 Data from: https://www.neighborhoodatlas.medicine.[facility]/. 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
--- OUTSIDE RECORDS SUMMARY | 2024-10-10 13:56 | XMS_ITS | Encounter Summary ---
Author Organization [facility] Address [address] [place] [address] Care Team Providers Care Ultrasound Technol Name Role Phone CruzTerri bolañosalejandro Lo DO Primary Care Provider Source Comments In the event this information is protected by the Federal Confidentiality of Alcohol and Drug AbusePatient Records regulations: The Federal rules restrict any use of the information to criminally investigate or prosecute any alcohol or drug abuse patient.[facility] Encounter Details Date Type Department Care Team (Late st Contact Info) Description 09/24/2019 Get Medical Advice Pain Management [address] [place] [address] Nelson Damon MD [address] [place] [address] RE: Visit Follow Up Question [...] 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
--- OUTSIDE RECORDS SUMMARY | 2024-10-10 13:56 | XMS_ITS | Encounter Summary ---
Author Organization [facility] Address [address] [place] [address] Care Team Providers Care Parasitology Teacher Name Role Phone CruzTerri bolañosalejandro Lo DO Primary Care Provider Source Comments In the event this information is protected by the Federal Confidentiality of Alcohol and Drug AbusePatient Records regulations: The Federal rules restrict any use of the information to criminally investigate or prosecute any alcohol or drug abuse patient.[facility] Encounter Details Date Type Department Care Team (Late st Contact Info) Description 09/30/2020 Get Medical Advice Pain Management [address] [place] [address] Nelson Damon MD [address] [place] [address] Visit Follow Up Question Social [...] N ot on file 03/09/2020 Data from: https://www.neighborhoodatlas.medicine.[facility]/. 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
--- OUTSIDE RECORDS SUMMARY | 2024-10-10 13:56 | XMS_ITS | Encounter Summary ---
Author Organization [facility] Address [address] [place] [address] Care Team Providers Care Radiation Protection Technician Name Role Phone Cruz, Emily Lo DO Primary Care Provider Source Comments In the event this information is protected by the Federal Confidentiality of Alcohol and Drug AbusePatient Records regulations: The Federal rules restrict any use of the information to criminally investigate or prosecute any alcohol or drug abuse patient.[facility] Encounter Details Date Type Department Care Team (Late st Contact Info) Description 09/30/2020 Get Medical Advice Pain Management [address] [place] [address] [phone] Louise Suazo PA-C RE: Visit Follow Up [...] on file 03/09/2020 Data from: https://www.neighborhoodatlas.medicine.[facility]/. 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
--- OUTSIDE RECORDS SUMMARY | 2024-10-10 13:56 | XMS_ITS | Encounter Summary ---
Author Organization [facility] Address [address] [place] [address] Care Team Providers Care Product Test Specialist Name Role Phone Cruz, Emily Lo DO Primary Care Provider Source Comments In the event this information is protected by the Federal Confidentiality of Alcohol and Drug AbusePatient Records regulations: The Federal rules restrict any use of the information to criminally investigate or prosecute any alcohol or drug abuse patient.[facility] Encounter Details Date Type Department Care Team (Late st Contact Info) Description 10/07/2020 Get Medical Advice Pain Management [address] [place] [phone] Louise Suazo PA-C RE: Visit Follow Up [...] N ot on file 03/09/2020 Data from: https://www.neighborhoodatlas.medicine.[facility]/. 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
--- OUTSIDE RECORDS SUMMARY | 2024-10-10 13:56 | XMS_ITS | Encounter Summary ---
Author Organization [facility] Address [address] [place] [address] Care Team Providers Care Media Relations Director Name Role Phone CruzTerri bolañoscey Teresita DO Primary Care Provider Source Comments In the event this information is protected by the Federal Confidentiality of Alcohol and Drug AbusePatient Records regulations: The Federal rules restrict any use of the information to criminally investigate or prosecute any alcohol or drug abuse patient.[facility] Encounter Details Date Type Department Care Team (Late st Contact Info) Description 10/17/2019 Get Medical Advice Pain Management [address] [place] [phone] Louise Suazo PA-C RE: Upcoming Appointment Question [...] 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
--- OUTSIDE RECORDS SUMMARY | 2024-10-10 13:56 | XMS_ITS | Encounter Summary ---
Author Organization [facility] Address [address] [place] [address] Care Team Providers Care Rocket Motor Mechanic Name Role Phone Cruz, Emily Lo DO Primary Care Provider Source Comments In the event this information is protected by the Federal Confidentiality of Alcohol and Drug AbusePatient Records regulations: The Federal rules restrict any use of the information to criminally investigate or prosecute any alcohol or drug abuse patient.[facility] Encounter Details Date Type Department Care Team (Late st Contact Info) Description 08/19/2020 Get Medical Advice Pain Management [address] [place] [phone] Louise Suazo PA-C RE: Visit Follow Up [...] N ot on file 03/09/2020 Data from: https://www.neighborhoodatlas.medicine.[facility]/. 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
--- OUTSIDE RECORDS SUMMARY | 2024-10-10 13:56 | XMS_ITS | Encounter Summary ---
Author Organization [facility] Address [address] [place] [address] Care Team Providers Care Celery Cutter Name Role Phone Cruz, Emily Lo DO Primary Care Provider Source Comments In the event this information is protected by the Federal Confidentiality of Alcohol and Drug AbusePatient Records regulations: The Federal rules restrict any use of the information to criminally investigate or prosecute any alcohol or drug abuse patient.[facility] Encounter Details Date Type Department Care Team (Late st Contact Info) Description 06/04/2020 Patient Msg Pain Management [address] [place] [phone] Louise Suazo PA-C RE: Request an Appointment [...] N ot on file 03/09/2020 Data from: https://www.neighborhoodatlas.medicine.[facility]/. 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 Answer Date of Assessment Author Yes 09/28/2014 2:37 PM EDT Junior Lyons, WASTE WATER WORKER * Do you have difficulty dressing or bathing? Answer Date of Assessment Author No 09/28/2014 2:37 PM EDT Junior Lyons, WASTE WATER WORKER * Because of a physical, mental, or [...] on filedocumented in this encounter Care Teams Celery Cutter Relationship Specialty Start Date End Date Emily Cruz DO PCP - General Family Medicine 05/08/11 documented as of this encounter
--- OUTSIDE RECORDS SUMMARY | 2024-10-10 13:56 | XMS_ITS | Encounter Summary ---
Author Organization [facility] Address [address] [place] [address] Care Team Providers Care Trial Consultant Name Role Phone Cruz, Emily Lo DO Primary Care Provider Source Comments In the event this information is protected by the Federal Confidentiality of Alcohol and Drug AbusePatient Records regulations: The Federal rules restrict any use of the information to criminally investigate or prosecute any alcohol or drug abuse patient.[facility] Encounter Details Date Type Department Care Team (Late st Contact Info) Description 10/21/2020 Patient Msg Pain Management [address] [place] [address] Nelson Damon MD [address] [place] [address] Its always my pleasure Social [...] N ot on file 03/09/2020 Data from: https://www.neighborhoodatlas.medicine.[facility]/. 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
--- OUTSIDE RECORDS SUMMARY | 2024-10-10 13:56 | XMS_ITS | Encounter Summary ---
Author Organization [facility] Address [address] [place] [address] Care Team Providers Care Sodium Chlorite Operator Name Role Phone CruzTerri bolañosalejandro Lo DO Primary Care Provider Source Comments In the event this information is protected by the Federal Confidentiality of Alcohol and Drug AbusePatient Records regulations: The Federal rules restrict any use of the information to criminally investigate or prosecute any alcohol or drug abuse patient.[facility] Encounter Details Date Type Department Care Team (Late st Contact Info) Description 10/20/2020 Get Medical Advice Pain Management [address] [place] [address] Nelson Damon MD [address] [place] [address] Visit Follow Up Question Social [...] N ot on file 03/09/2020 Data from: https://www.neighborhoodatlas.medicine.[facility]/. 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
--- OUTSIDE RECORDS SUMMARY | 2024-10-10 13:56 | XMS_ITS | Encounter Summary ---
Author Organization [facility] Address [address] [place] [address] Care Team Providers Care Psychology Assistant Name Role Phone Cruz, Emily Lo DO Primary Care Provider Source Comments In the event this information is protected by the Federal Confidentiality of Alcohol and Drug AbusePatient Records regulations: The Federal rules restrict any use of the information to criminally investigate or prosecute any alcohol or drug abuse patient.[facility] Encounter Details Date Type Department Care Team (Late st Contact Info) Description 12/30/2020 Get Medical Advice Pain Management [address] [place] [phone] Louise Suazo PA-C RE: Visit Follow Up [...] N ot on file 03/09/2020 Data from: https://www.neighborhoodatlas.medicine.[facility]/. 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
--- OUTSIDE RECORDS SUMMARY | 2024-10-10 13:57 | XMS_ITS | Encounter Summary ---
Author Organization [facility] Address [address] [place] [address] Care Team Providers Care Sales Activity Manager Name Role Phone CruzTerri bolañoscey Teresita Primary Care Provider Source Comments In the event this information is protected by the Federal Confidentiality of Alcohol and Drug AbusePatient Records regulations: The Federal rules restrict any use of the information to criminally investigate or prosecute any alcohol or drug abuse patient.[facility] Encounter Details Date Type Department Care Team (Late st Contact Info) Description 08/01/2018 Get Medical Advice Pain Management [address] [place] [phone] Louise Suazo PA-C RE: Visit Follow Up [...] 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 Answer Date of Assessment Author Yes 09/28/2014 2:37 PM EDT Junior Lyons, FREIGHT DISPATCHER * Do you have difficulty dressing or bathing? Answer Date of Assessment Author No 09/28/2014 2:37 PM EDT Junior Lyons, FREIGHT DISPATCHER * Because of a physical, mental, or [...] on filedocumented in this encounter Care Teams Sales Activity Manager Relationship Specialty Start Date End Date Emily Cruz DO PCP - General Family Medicine 05/08/11 documented as of this encounter
--- OUTSIDE RECORDS SUMMARY | 2024-10-10 13:57 | XMS_ITS | Encounter Summary ---
Author Organization [facility] Address [address] [place] [address] Care Team Providers Care Cleaner Carpet And Upholstery Name Role Phone CruzTerri bolañosalejandro Lo DO Primary Care Provider Source Comments In the event this information is protected by the Federal Confidentiality of Alcohol and Drug AbusePatient Records regulations: The Federal rules restrict any use of the information to criminally investigate or prosecute any alcohol or drug abuse patient.[facility] Encounter Details Date Type Department Care Team (Late st Contact Info) Description 09/02/2021 Get Medical Advice Pain Management [address] [place] [address] Nelson Damon MD [address] [place] [address] Sciatica Pain Social History Tobacco [...] N ot on file 08/21/2021 Data from: https://www.neighborhoodatlas.medicine.[facility]/. 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
--- OUTSIDE RECORDS SUMMARY | 2024-10-10 13:57 | XMS_ITS | Encounter Summary ---
Author Organization [facility] Address [address] [place] [address] Care Team Providers Care Bleach Maker Name Role Phone CruzTerri bolañosalejandro Lo DO Primary Care Provider Source Comments In the event this information is protected by the Federal Confidentiality of Alcohol and Drug AbusePatient Records regulations: The Federal rules restrict any use of the information to criminally investigate or prosecute any alcohol or drug abuse patient.[facility] Encounter Details Date Type Department Care Team (Late st Contact Info) Description 04/12/2020 Get Medical Advice Pain Management [address] [place] [address] Nelson Damon MD [address] [place] [address] RE: Visit Follow Up Question [...] ot on file 03/09/2020 Data from: https://www.neighborhoodatlas.medicine.[facility]/. 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
--- OUTSIDE RECORDS SUMMARY | 2024-10-10 13:57 | XMS_ITS | Encounter Summary ---
Author Organization [facility] Address [facility] [place] [address] Care Team Providers Care Buoy Tender Name Role Phone Anthony Emily Lo DO Primary Care Provider Source Comments In the event this information is protected by the Federal Confidentiality of Alcohol and Drug AbusePatient Records regulations: The Federal rules restrict any use of the information to criminally investigate or prosecute any alcohol or drug abuse patient.[facility] Reason for Visit * Reason Comments Radiology MRI Encounter Details Date Type Department Care Team (Late st Contact Info) Description 09/27/2020 Radiology [facility] Radiology MRI [address] [place], [place] [id number] Abel Dela Cruz RT(R) Radiology MRI Social [...] N ot on file 03/09/2020 Data from: https://www.neighborhoodatlas.medicine.[facility]/. 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
--- OUTSIDE RECORDS SUMMARY | 2024-10-10 13:57 | XMS_ITS | Encounter Summary ---
Author Organization [facility] Address [address] [place] [address] Care Team Providers Care Casino Floorperson Name Role Phone Cruz, Emily Lo DO Primary Care Provider Source Comments In the event this information is protected by the Federal Confidentiality of Alcohol and Drug AbusePatient Records regulations: The Federal rules restrict any use of the information to criminally investigate or prosecute any alcohol or drug abuse patient.[facility] Encounter Details Date Type Department Care Team (Late st Contact Info) Description 04/23/2020 Get Medical Advice Pain Management [id number] [place] [phone] Louise Suazo PA-C RE: Visit Follow Up [...] N ot on file 03/09/2020 Data from: https://www.neighborhoodatlas.medicine.[facility]/. 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
--- OUTSIDE RECORDS SUMMARY | 2024-10-10 13:57 | XMS_ITS | Encounter Summary ---
Author Organization [facility] Address [address] [place] [address] Care Team Providers Care Ticket Marker Name Role Phone CruzTerri bolañoscey Teresita Primary Care Provider Source Comments In the event this information is protected by the Federal Confidentiality of Alcohol and Drug AbusePatient Records regulations: The Federal rules restrict any use of the information to criminally investigate or prosecute any alcohol or drug abuse patient.[facility] Encounter Details Date Type Department Care Team (Late st Contact Info) Description 08/03/2018 Get Medical Advice Pain Management [address] [place] [phone] Louise Suazo PA-C RE: Upcoming Appointment Question [...] 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 Answer Date of Assessment Author No 09/28/2014 2:37 PM EDT Junior Lyons, JOCKEY VALET * Are you blind or do you have serious difficulty seeing, even when wearing glasses? Answer Date of Assessment Author No 09/28/2014 2:37 PM EDT Junior Lyons, JOCKEY VALET * Do you have serious difficulty walking or climbing stairs? Answer Date of Assessment Author Yes 09/28/2014 2:37 PM EDT Junior Lyons, JOCKEY VALET * Do you have difficulty dressing or bathing? Answer Date of Assessment Author No 09/28/2014 2:37 PM EDT Junior Lyons, JOCKEY VALET * Because of a physical, mental, or emotional condition, do you have difficulty doing errands alone such as visiting a doctor's office or shopping? Answer Date of Assessment Author No 09/28/2014 2:37 PM EDT Junior Lyons, JOCKEY VALET documented as of this encounter Mental Status [...] baby aspirin after her surgery. Dr. Nunez# [phone] Nabila Amanda RN documented in this encounter Plan of Treatment Not on file documented as of this encounter Visit Diagnoses Not on filedocumented in this encounter Care Teams Ticket Marker Relationship Specialty Start Date End Date Emily Cruz DO PCP - General Family Medicine 05/08/11 documented as of this encounter
--- OUTSIDE RECORDS SUMMARY | 2024-10-10 13:57 | XMS_ITS | Encounter Summary ---
Author Organization [facility] Address [address] [place] [address] Care Team Providers Care Resident Athletic Trainer Name Role Phone Cruz, Emily Lo DO [...] Description 08/19/2022 Get Medical Advice Pain Management [address] [place] [address] Nelson Damon MD [address] [place] [address] Severe Pain Social History Tobacco [...] 04/17/2022 Data from: https://www.neighborhoodatlas.medicine.[facility]/. 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
--- OUTSIDE RECORDS SUMMARY | 2024-10-10 13:57 | XMS_ITS | Encounter Summary ---
Author Organization [facility] Address [address] [place] [address] Care Team Providers Care Charge Account Clerk Name Role Phone CruzTerri bolañosalejandro Lo DO Primary Care Provider Source Comments In the event this information is protected by the Federal Confidentiality of Alcohol and Drug AbusePatient Records regulations: The Federal rules restrict any use of the information to criminally investigate or prosecute any alcohol or drug abuse patient.[facility] Encounter Details Date Type Department Care Team (Late st Contact Info) Description 12/26/2018 Get Medical Advice Pain Management [address] [place] [address] Nelson Damon MD [address] [place] [address] RE: Visit Follow Up Question [...] 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
--- OUTSIDE RECORDS SUMMARY | 2024-10-10 13:57 | XMS_ITS | Encounter Summary ---
Author Organization [facility] Address [address] [place] [address] Care Team Providers Care Qa Software Tester Name Role Phone CruzTerri bolañosalejandro Lo DO Primary Care Provider Source Comments In the event this information is protected by the Federal Confidentiality of Alcohol and Drug AbusePatient Records regulations: The Federal rules restrict any use of the information to criminally investigate or prosecute any alcohol or drug abuse patient.[facility] Encounter Details Date Type Department Care Team (Late st Contact Info) Description 10/14/2022 Get Medical Advice Pain Management [address] [place] [phone] Louise Suazo PA-C My appointment Social History [...] N ot on file 04/17/2022 Data from: https://www.neighborhoodatlas.medicine.[facility]/. Last address used for calculation [address] 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 Answer Date of Assessment Author No 09/28/2014 2:37 PM EDT Junior Lyons, THERAPEUTIC RECREATION DIRECTOR * Are you blind or do you [...] on filedocumented in this encounter Care Teams Qa Software Tester Relationship Specialty Start Date End Date Emily Cruz DO PCP - General Family Medicine 05/08/11 documented as of this encounter
--- OUTSIDE RECORDS SUMMARY | 2024-10-10 13:57 | XMS_ITS | Clinical Summary ---
Author Organization [facility] Address [address] [place] [address] Care Team Providers Care Griddle Attendant Name Role Phone Unallocated, Noms Provider MD [...] 07/11/2024 4:40 PM EDT Office Visit [facility] [address] [place] [phone] Juan F Adam DPM Acute gout of [...] 08/24/2011 Pap Smear 08/24/2011 08/23/2008 Influenza Vaccine (#1) 2024 5, 03/23/2023, 03/12/2022, Additional history exists Care Teams Griddle Attendant Relationship Specialty Start Date End Date Unallocated, Noms Nicholas, [address] [place] [address] PCP - General Family Medicine 07/11/24
--- OUTSIDE RECORDS SUMMARY | 2024-10-10 13:57 | XMS_ITS | Encounter Summary ---
Author Organization [facility] Address [address] [place] [address] Care Team Providers Care Relay Repairer Name Role Phone CruzTerri bolañoscey Teresita Primary Care Provider Source Comments In the event this information is protected by the Federal Confidentiality of Alcohol and Drug AbusePatient Records regulations: The Federal rules restrict any use of the information to criminally investigate or prosecute any alcohol or drug abuse patient.[facility] Encounter Details Date Type Department Care Team (Late st Contact Info) Description 08/30/2018 Get Medical Advice Pain Management [address] [phone] Louise Suazo PA-C RE: Upcoming Appointment Question [...] 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 Answer Date of Assessment Author No 09/28/2014 2:37 PM EDT Junior Lyons yuri M, CONSTRUCTION MANAGEMENT ASSISTANT * Are you blind or do you have serious difficulty seeing, even when wearing glasses? Answer Date of Assessment Author No 09/28/2014 2:37 PM EDT Junior Lyons yuri Tobin, CONSTRUCTION MANAGEMENT ASSISTANT * Do you have serious difficulty walking or climbing stairs? Answer Date of Assessment Author Yes 09/28/2014 2:37 PM EDT Junior Lyons yuri Tobin, CONSTRUCTION MANAGEMENT ASSISTANT * Do you have difficulty dressing or bathing? Answer Date of Assessment Author No 09/28/2014 2:37 PM EDT Junior Lyons yuri Tobin, CONSTRUCTION MANAGEMENT ASSISTANT * Because of a physical, mental, or emotional condition, do you have difficulty doing errands alone such as visiting a doctor's office or shopping? Answer Date of Assessment Author No 09/28/2014 2:37 PM EDT Junior Lyons yuri Tobin, CONSTRUCTION MANAGEMENT ASSISTANT documented as of this encounter Mental Status * Because of a physical, mental, or emotional condition, do you have serious difficulty concentrating, remembering, or making decisions? Answer Entry Date Author No 09/28/2014 2:37 PM EDT Junior Lyons yuri M, CONSTRUCTION MANAGEMENT ASSISTANT documented in this encounter Miscellaneous Notes * Telephone Encounter - Maeve Barakat RN - 08/30/2018 3:02 PM EDT Office visit 08/25/18, 1) Suture removal performed today 2) RTC in 4 weeks for follow-up visit with YON. She needs programming adjustment with [employer]. 3) Counseled patient regarding the importance of activity modification. ??Appointment 08/31/18. Maeve Barakat RN documented in this encounter Plan of Treatment Not on file documented as of this encounter Visit Diagnoses Not on filedocumented in this encounter Care Teams Relay Repairer Relationship Specialty Start Date End Date Emily Cruz DO PCP - General Family Medicine 05/08/11 documented as of this encounter
--- OUTSIDE RECORDS SUMMARY | 2024-10-10 13:57 | XMS_ITS | Encounter Summary ---
Author Organization [facility] Address [address] [place] [address] Care Team Providers Care Automotive Starter Repairer Name Role Phone Anthony Emily Lo DO [...] Info) Description 05/26/2021 Patient Msg Pain Management [address] [place] [phone] Provider, [facility] Covid Test Social History Tobacco [...] on file 03/09/2020 Data from: https://www.neighborhoodatlas.medicine.[facility]/. 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
--- OUTSIDE RECORDS SUMMARY | 2024-10-10 13:57 | XMS_ITS | Encounter Summary ---
Author Organization [facility] Address [address] [place] [address] Care Team Providers Care Ammonia Nitrate Operator Name Role Phone CruzTerri bolañosalejandro Lo DO Primary Care Provider Source Comments In the event this information is protected by the Federal Confidentiality of Alcohol and Drug AbusePatient Records regulations: The Federal rules restrict any use of the information to criminally investigate or prosecute any alcohol or drug abuse patient.[facility] Encounter Details Date Type Department Care Team (Late st Contact Info) Description 10/27/2019 Get Medical Advice Pain Management [address] [place] [address] Nelson Damon MD [address] [place] [address] RE: Visit Follow Up Question [...] 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
--- OUTSIDE RECORDS SUMMARY | 2024-10-10 13:57 | XMS_ITS | Encounter Summary ---
Author Organization [facility] Address [address] [place] [address] Care Team Providers Care Assistant Oceanographer Name Role Phone Cruz, Emily Teresita DO Primary Care Provider Source Comments In the event this information is protected by the Federal Confidentiality of Alcohol and Drug AbusePatient Records regulations: The Federal rules restrict any use of the information to criminally investigate or prosecute any alcohol or drug abuse patient.[facility] Encounter Details Date Type Department Care Team (Late st Contact Info) Description 08/13/2021 Get Medical Advice Pain Management [address] [place] [address] Eli Jansen, GAS JOCKEY.INSTRUMENTAL MUSIC TEACHER [address] [place] [address] Neck, cervical and my knees [...] N ot on file 03/09/2020 Data from: https://www.neighborhoodatlas.medicine.[facility]/. 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
--- OUTSIDE RECORDS SUMMARY | 2024-10-10 13:57 | XMS_ITS | Encounter Summary ---
Author Organization [facility] Address [address] [place] [address] Care Team Providers Care Journeyman Painter Name Role Phone Cruz, Emily Lo DO Primary Care Provider Source Comments In the event this information is protected by the Federal Confidentiality of Alcohol and Drug AbusePatient Records regulations: The Federal rules restrict any use of the information to criminally investigate or prosecute any alcohol or drug abuse patient.[facility] Encounter Details Date Type Department Care Team (Late st Contact Info) Description 06/11/2021 Get Medical Advice Pain Management [address] [place] [address] Nelson Damon MD [address] [place] [address] New symptom Social History Tobacco [...] 03/09/2020 Data from: https://www.neighborhoodatlas.medicine.[facility]/. 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
--- OUTSIDE RECORDS SUMMARY | 2024-10-10 13:57 | XMS_ITS | Clinical Summary ---
Author Organization [facility] Address [facility] [place] [id number] Care Team Providers Care Non Licensed Nuclear Plant Operator Name Role Phone Emily Cruz DO Primary [...] 10/26/19 19 019 Discontin ued(Smith ing Therapy/D chickahominy indian tribe Form) Active Problems Problem Noted Date Diagnosed [...] is lower risk 9 10/20/2022 Data from: https://www.neighborhoodatlas.medicine.[facility].edu/. 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 [...] 03/12/2022, 02/19/2021, Additional history exists Influenza Vaccine (#1) 2024 , 03/12/2022, 01/20/2021, Additional history exists Diabetes Screening [...] COMP METABOLIC PANEL (02/11/2023 9:57 AM EST) [facility] Protein, Total 6.6 6.3 - 8.0 g/dL 02/11/2023 10:26 AM [facility] Albumin 4.0 3.9 - 4.9 g/dL 02/11/2023 10:26 AM [facility] Calcium, Total 9.6 8.5 - 10.2 mg/dL 02/11/2023 10:26 AM [facility] Bilirubin, Total 0.4 0.2 - 1.3 mg/dL 02/11/2023 10:26 AM [facility] Alkaline Phosphatase 65 34 - 123 U/L 02/11/2023 10:26 AM [facility] AST 20 13 - 35 U/L 02/11/2023 10:26 AM [facility] ALT 23 7 - 38 U/L 02/11/2023 10:26 AM [facility] Glucose 118(H) 74 - 99 mg/dL 02/11/2023 10:26 AM [facility] Comment: The [place] Diabetes Association (ADA) provides guidance for cutoff [...] Standards of Medical Care in Diabetes 2016, [place] Diabetes Association. Diabetes Care. 2016.39(Suppl 1). BUN 18 7 - 21 mg/dL 02/11/2023 10:26 AM [facility] Creatinine 1.36(H) 0.58 - 0.96 mg/dL 02/11/2023 10:26 AM EST [facility] Sodium 143 136 - 144 mmol/L 02/11/2023 10:26 AM [facility] Potassium 4.2 3.7 - 5.1 mmol/L 02/11/2023 10:26 AM [facility] Chloride 107(H) 97 - 105 mmol/L 02/11/2023 10:26 AM [facility] CO2 26 22 - 30 mmol/L 02/11/2023 10:26 AM [facility] Anion Gap 10 9 - 18 mmol/L 02/11/2023 10:26 AM [facility] Estimated Glomerular Filtration Rate 44(L) >=60 mL/min/1. 73m 02/11/2023 10:26 AM [facility] Comment:Estimated Glomerular Filtration Rate (eGFR) is [...] 02/11/2023 9:57 AM EST us Leticia Lou APRN.[facility] Final Result [facility] [address] [place] [id number] from Last 3 Months or Most Recently Relevant to Health Maintenance Insurance [employer] Advance Directives Documents on File Type Date Recorded Patient Structural Analyst Expl anation Advance Directive(s) 07/28/2018 4:04 PM Advance Directive(s) 07/28/2018 3:05 PM Care Teams Non Licensed Nuclear Plant Operator Relationship Specialty Start Date End Date Emily Cruz DO PCP - General Family Medicine 05/08/11
--- OUTSIDE RECORDS SUMMARY | 2024-10-10 13:57 | XMS_ITS | Encounter Summary ---
Author Organization [facility] Address [address] [place] [address] Care Team Providers Care Loss Prevention And Safety Manager Name Role Phone Cruz, Emily Lo DO Primary Care Provider Source Comments In the event this information is protected by the Federal Confidentiality of Alcohol and Drug AbusePatient Records regulations: The Federal rules restrict any use of the information to criminally investigate or prosecute any alcohol or drug abuse patient.[facility] Encounter Details Date Type Department Care Team (Late st Contact Info) Description 10/08/2020 Get Medical Advice Pain Management [id number] [place] [phone] Louise Suazo PA-C RE: Visit Follow Up [...] 03/09/2020 Data from: https://www.neighborhoodatlas.medicine.[facility]/. 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
--- OUTSIDE RECORDS SUMMARY | 2024-10-10 13:57 | XMS_ITS | Encounter Summary ---
Author Organization [facility] Address [address] [place] [address] Care Team Providers Care Senior Label Specialist Name Role Phone Cruz, Emily Lo DO Primary Care Provider Source Comments In the event this information is protected by the Federal Confidentiality of Alcohol and Drug AbusePatient Records regulations: The Federal rules restrict any use of the information to criminally investigate or prosecute any alcohol or drug abuse patient.[facility] Encounter Details Date Type Department Care Team (Late st Contact Info) Description 03/02/2018 Patient Msg Pain Management [address] [place] [address] Nelson Damon MD [address] [place] [address] RE: Request an Appointment Social [...] 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
--- OUTSIDE RECORDS SUMMARY | 2024-10-10 13:57 | XMS_ITS | Encounter Summary ---
Author Organization [facility] Address [address] [place] [address] Care Team Providers Care Loan Auditor Name Role Phone Anthony Emily Lo DO Primary Care Provider Source Comments In the event this information is protected by the Federal Confidentiality of Alcohol and Drug AbusePatient Records regulations: The Federal rules restrict any use of the information to criminally investigate or prosecute any alcohol or drug abuse patient.[facility] Encounter Details Date Type Department Care Team (Late st Contact Info) Description 04/06/2023 Patient Msg Pain Management [address] [place] [phone] Provider, [facility] Appointment Reminder Social History Tobacco [...] is lower risk 9 10/20/2022 Data from: https://www.neighborhoodatlas.medicine.[facility]/. 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
--- OUTSIDE RECORDS SUMMARY | 2024-10-10 13:57 | XMS_ITS | Encounter Summary ---
Author Organization [facility] Address [address] [place] [address] Care Team Providers Care Clearing Tub Worker Name Role Phone Cruz, Emily Lo DO Primary Care Provider Source Comments In the event this information is protected by the Federal Confidentiality of Alcohol and Drug AbusePatient Records regulations: The Federal rules restrict any use of the information to criminally investigate or prosecute any alcohol or drug abuse patient.[facility] Encounter Details Date Type Department Care Team (Late st Contact Info) Description 11/19/2019 Get Medical Advice Pain Management [address] [place] [phone] Louise Suazo PA-C RE: Visit Follow Up [...] 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
--- OUTSIDE RECORDS SUMMARY | 2024-10-10 13:57 | XMS_ITS | Encounter Summary ---
Author Organization [facility] Address [address] [place] [address] Care Team Providers Care Unemployment Benefits Claims Taker Name Role Phone Cruz, Emily Lo DO Primary Care Provider Source Comments In the event this information is protected by the Federal Confidentiality of Alcohol and Drug AbusePatient Records regulations: The Federal rules restrict any use of the information to criminally investigate or prosecute any alcohol or drug abuse patient.[facility] Encounter Details Date Type Department Care Team (Late st Contact Info) Description 08/21/2022 Get Medical Advice Pain Management [address] [place] [phone] Louise Suazo PA-C Severe pain. Social History [...] N ot on file 04/17/2022 Data from: https://www.neighborhoodatlas.medicine.[facility]/. 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 Answer Date of Assessment Author No 09/28/2014 2:37 PM EDT Junior Lyons, TEA TASTER * Are you blind or do you [...] on filedocumented in this encounter Care Teams Unemployment Benefits Claims Taker Relationship Specialty Start Date End Date Emily Cruz DO PCP - General Family Medicine 05/08/11 documented as of this encounter
--- OUTSIDE RECORDS SUMMARY | 2024-10-10 13:57 | XMS_ITS | Encounter Summary ---
Author Organization [facility] Address [address] [place] [address] Care Team Providers Care Kitchen Help Handyman Name Role Phone Anthony Emily oL DO Primary Care Provider Source Comments [...] Info) Description 08/26/2021 Patient Msg Rheumatology [address] [place] [phone] Kelly Andrews DO [address] [place] [address] Request an Appointment Social History [...] Data from: https://www.neighborhoodatlas.medicine.[facility]/. 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
--- OUTSIDE RECORDS SUMMARY | 2024-10-10 13:57 | XMS_ITS | Encounter Summary ---
Author Organization [facility] Address [address] [place] [address] Care Team Providers Care Hand Dry Cleaner Name Role Phone Cruz, Emily Lo DO Primary Care Provider Source Comments In the event this information is protected by the Federal Confidentiality of Alcohol and Drug AbusePatient Records regulations: The Federal rules restrict any use of the information to criminally investigate or prosecute any alcohol or drug abuse patient.[facility] Encounter Details Date Type Department Care Team (Late st Contact Info) Description 04/09/2020 Get Medical Advice Pain Management [address] [place] [phone] Louise Suazo PA-C RE: Visit Follow Up [...] N ot on file 03/09/2020 Data from: https://www.neighborhoodatlas.medicine.[facility]/. 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
--- OUTSIDE RECORDS SUMMARY | 2024-10-10 13:57 | XMS_ITS | Encounter Summary ---
Author Organization [facility] Address [address] [place] [address] Care Team Providers Care Industrial Economics Teacher Name Role Phone Cruz, Emily Lo DO Primary Care Provider Source Comments In the event this information is protected by the Federal Confidentiality of Alcohol and Drug AbusePatient Records regulations: The Federal rules restrict any use of the information to criminally investigate or prosecute any alcohol or drug abuse patient.[facility] Encounter Details Date Type Department Care Team (Late st Contact Info) Description 09/30/2020 Get Medical Advice Pain Management [phone] [place] [phone] Louise Suazo PA-C RE: Upcoming Appointment Question [...] N ot on file 03/09/2020 Data from: https://www.neighborhoodatlas.medicine.[facility]/. 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
--- OUTSIDE RECORDS SUMMARY | 2024-10-10 13:57 | XMS_ITS | Encounter Summary ---
Author Organization [facility] Address [address] [place] [address] Care Team Providers Care Tool Room Gear Machine Operator Name Role Phone Anthony Emily Lo DO Primary Care Provider Source Comments In the event this information is protected by the Federal Confidentiality of Alcohol and Drug AbusePatient Records regulations: The Federal rules restrict any use of the information to criminally investigate or prosecute any alcohol or drug abuse patient.[facility] Encounter Details Date Type Department Care Team (Late st Contact Info) Description 08/22/2021 Patient Msg Pain Management [address] [place] [phone] Provider, Cclasha OPERS Form Social History Tobacco [...] on file 08/21/2021 Data from: https://www.neighborhoodatlas.medicine.[facility]/. 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
--- OUTSIDE RECORDS SUMMARY | 2024-10-10 13:57 | XMS_ITS | Encounter Summary ---
Author Organization [facility] Address [address] [place] [address] Care Team Providers Care Metal Furrer Name Role Phone Cruz, Emily Lo DO [...] Info) Description 11/02/2023 Patient Msg Pain Management [address] [place] [phone] Marcelle Amos [address] [place] [id number] Procedure Cancelled Social History Tobacco Use Types Packs/Day Years Used Date Smoking Tobacco: Former Cigarettes Q uit: 06/11/2010 Smokeless Tobacco: Never Alcohol Use Standard Drinks/Week Comments No 0 (1 standard drink = 0.6 oz pur e alcohol) occasionally PHQ-2 Answer Date Recorded PHQ-2 score 5 11/22/2021 Area Deprivation Index Answer Date Ramior rded National Score (1-100), lower number is lower ri sk 96 10/20/2022 State Score (1-10), lower number is lower risk 9 10/20/2022 Data from: https://www.neighborhoodatlas.medicine.[facility]/. 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
--- OUTSIDE RECORDS SUMMARY | 2024-10-10 13:57 | XMS_ITS | Encounter Summary ---
Author Organization [facility] Address [address] [place] [address] Care Team Providers Care Remotely Piloted Vehicle Controller Name Role Phone CruzTerri oblañosalejandro Lo DO Primary Care Provider Source Comments In the event this information is protected by the Federal Confidentiality of Alcohol and Drug AbusePatient Records regulations: The Federal rules restrict any use of the information to criminally investigate or prosecute any alcohol or drug abuse patient.[facility] Encounter Details Date Type Department Care Team (Late st Contact Info) Description 04/12/2020 Get Medical Advice Pain Management [address] [place] [address] Nelson Damon MD [address] [place] [address] RE: Visit Follow Up Question [...] Data from: https://www.neighborhoodatlas.medicine.[facility]/. 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
--- OUTSIDE RECORDS SUMMARY | 2024-10-10 13:57 | XMS_ITS | Encounter Summary ---
Author Organization [facility] Address [address] [place] [address] Care Team Providers Care Ice Maker Name Role Phone Cruz, Emily Lo DO Primary Care Provider Source Comments In the event this information is protected by the Federal Confidentiality of Alcohol and Drug AbusePatient Records regulations: The Federal rules restrict any use of the information to criminally investigate or prosecute any alcohol or drug abuse patient.[facility] Encounter Details Date Type Department Care Team (Late st Contact Info) Description 08/13/2021 Patient Msg Pain Management [address] [place] [address] Eli Jansen, CALIBRATOR BAROMETERS.BUZZSAW OPERATOR HELPER [address] [place] [address] Request an Appointment Social History [...] N ot on file 03/09/2020 Data from: https://www.neighborhoodatlas.medicine.[facility]/. 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
--- OUTSIDE RECORDS SUMMARY | 2024-10-10 13:57 | XMS_ITS | Encounter Summary ---
Author Organization [facility] Address [address] [place] [address] Care Team Providers Care Plate And Weld Inspector Name Role Phone Cruz, Emily Lo DO Primary Care Provider Source Comments In the event this information is protected by the Federal Confidentiality of Alcohol and Drug AbusePatient Records regulations: The Federal rules restrict any use of the information to criminally investigate or prosecute any alcohol or drug abuse patient.[facility] Encounter Details Date Type Department Care Team (Late st Contact Info) Description 04/13/2020 Get Medical Advice Pain Management [address] [place] [phone] Louise Suazo PA-C RE: Visit Follow Up [...] ot on file 03/09/2020 Data from: https://www.neighborhoodatlas.medicine.[facility]/. 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
--- OUTSIDE RECORDS SUMMARY | 2024-10-10 13:57 | XMS_ITS | Encounter Summary ---
Author Organization [facility] Address [address] [place] [address] Care Team Providers Care Wallpaperer Helper Name Role Phone CruzTerri bolañosalejandro Lo DO Primary Care Provider Source Comments In the event this information is protected by the Federal Confidentiality of Alcohol and Drug AbusePatient Records regulations: The Federal rules restrict any use of the information to criminally investigate or prosecute any alcohol or drug abuse patient.[facility] Encounter Details Date Type Department Care Team (Late st Contact Info) Description 02/06/2018 Get Medical Advice Pain Management [address] [place] [address] Nelson Damon MD [address] [place] [address] RE: Visit Follow Up Question [...] 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
--- OUTSIDE RECORDS SUMMARY | 2024-10-10 13:57 | XMS_ITS | Encounter Summary ---
Author Organization [facility] Address [address] [place] [address] Care Team Providers Care Rag Shredder Name Role Phone CruzTerri bolañosalejandro Lo DO Primary Care Provider Source Comments In the event this information is protected by the Federal Confidentiality of Alcohol and Drug AbusePatient Records regulations: The Federal rules restrict any use of the information to criminally investigate or prosecute any alcohol or drug abuse patient.[facility] Encounter Details Date Type Department Care Team (Late st Contact Info) Description 08/05/2022 Patient Msg Pain Management [address] [place] [address] Nelson Damon MD [address] [place] [address] Request an Appointment Social History [...] N ot on file 04/17/2022 Data from: https://www.neighborhoodatlas.medicine.[facility]/. 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
--- OUTSIDE RECORDS SUMMARY | 2024-10-10 13:57 | XMS_ITS | Encounter Summary ---
Author Organization [facility] Address [address] [place] [address] Care Team Providers Care Capacity Planner Name Role Phone CruzTerri bolañosalejandro Lo DO Primary Care Provider Source Comments In the event this information is protected by the Federal Confidentiality of Alcohol and Drug AbusePatient Records regulations: The Federal rules restrict any use of the information to criminally investigate or prosecute any alcohol or drug abuse patient.[facility] Encounter Details Date Type Department Care Team (Late st Contact Info) Description 11/16/2017 Get Medical Advice Pain Management [address] [place] [address] Nelson Damon MD [address] [place] [address] RE: Visit Follow Up Question [...] 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
--- OUTSIDE RECORDS SUMMARY | 2024-10-10 13:57 | XMS_ITS | Encounter Summary ---
Author Organization [facility] Address [address] [place] [address] Care Team Providers Care Breaster Name Role Phone Anthony Emily Lo DO [...] Info) Description 10/18/2023 Patient Msg Pain Management [address] [phone] Provider, Ccf Schedule Appointment Social History Tobacco [...] is lower risk 9 10/20/2022 Data from: https://www.neighborhoodatlas.medicine.[facility]/. 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
--- OUTSIDE RECORDS SUMMARY | 2024-10-10 13:57 | XMS_ITS | Encounter Summary ---
Author Organization [facility] Address [address] [place] [address] Care Team Providers Care Brick Pointer Name Role Phone Emily Cruz DO Primary Care Provider Source Comments In the event this information is protected by the Federal Confidentiality of Alcohol and Drug AbusePatient Records regulations: The Federal rules restrict any use of the information to criminally investigate or prosecute any alcohol or drug abuse patient.[facility] Encounter Details Date Type Department Care Team (Late st Contact Info) Description 04/29/2021 Patient Msg Pain Management [address] [place] [address] Provider, Ccf Rescheduled Procedure Date [...] ot on file 03/09/2020 Data from: https://www.neighborhoodatlas.medicine.[facility]/. 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
--- OUTSIDE RECORDS SUMMARY | 2024-10-10 13:57 | XMS_ITS | Encounter Summary ---
Author Organization [facility] Address [address] [place] [address] Care Team Providers Care Procurement Internship Name Role Phone CruzTerri bolañoscey Teresita Primary Care Provider Source Comments In the event this information is protected by the Federal Confidentiality of Alcohol and Drug AbusePatient Records regulations: The Federal rules restrict any use of the information to criminally investigate or prosecute any alcohol or drug abuse patient.[facility] Encounter Details Date Type Department Care Team (Late st Contact Info) Description 12/30/2018 Get Medical Advice Pain Management [address] [phone] Louise Suazo PA-C RE: Visit Follow Up [...] 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 Answer Date of Assessment Author Yes 09/28/2014 2:37 PM EDT Junior Lyons, EMBLEM DRAWER IN * Do you have difficulty dressing or bathing? Answer Date of Assessment Author No 09/28/2014 2:37 PM EDT Junior Lyons, EMBLEM DRAWER IN * Because of a physical, mental, or [...] on filedocumented in this encounter Care Teams Procurement Internship Relationship Specialty Start Date End Date Emily Cruz DO PCP - General Family Medicine 05/08/11 documented as of this encounter
--- OUTSIDE RECORDS SUMMARY | 2024-10-10 13:57 | XMS_ITS | Encounter Summary ---
Author Organization [facility] Address [address] [place] [address] Care Team Providers Care Feather Sawyer Name Role Phone Cruz, Emily Lo DO Primary Care Provider Source Comments In the event this information is protected by the Federal Confidentiality of Alcohol and Drug AbusePatient Records regulations: The Federal rules restrict any use of the information to criminally investigate or prosecute any alcohol or drug abuse patient.[facility] Encounter Details Date Type Department Care Team (Late st Contact Info) Description 09/22/2022 Get Medical Advice Pain Management [address] [phone] Louise Suazo PA-C Extreme Pain Social History [...] N ot on file 04/17/2022 Data from: https://www.neighborhoodatlas.medicine.[facility]/. 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 Answer Date of Assessment Author No 09/28/2014 2:37 PM EDT Junior Lyons, WELDING PANTOGRAPH MACHINE OPERATOR * Are you blind or do [...] on filedocumented in this encounter Care Teams Feather Sawyer Relationship Specialty Start Date End Date Emily Cruz DO PCP - General Family Medicine 05/08/11 documented as of this encounter
--- OUTSIDE RECORDS SUMMARY | 2024-10-10 13:57 | XMS_ITS | Encounter Summary ---
Author Organization [facility] Address [address] [place] [address] Care Team Providers Care Interactive Producer Name Role Phone Cruz Emily Lo DO Primary Care Provider Source Comments In the event this information is protected by the Federal Confidentiality of Alcohol and Drug AbusePatient Records regulations: The Federal rules restrict any use of the information to criminally investigate or prosecute any alcohol or drug abuse patient.[facility] Encounter Details Date Type Department Care Team (Late st Contact Info) Description 08/05/2022 Patient Msg Medical Records [address] [place] [address] Provider, Ccf Questionnaire Submission Social History Tobacco [...] N ot on file 04/17/2022 Data from: https://www.neighborhoodatlas.medicine.[facility]/. 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
--- OUTSIDE RECORDS SUMMARY | 2024-10-10 13:57 | XMS_ITS | Encounter Summary ---
Author Organization [facility] Address [address] [place] [address] Care Team Providers Care Freight Separator Name Role Phone Sriram Kunz MD Unavailable Kyle Norwood MD Primary Care Provider [phone] Abel Nunez DO Unavailable Unavai Byron Herman MD Unavailable Unavailabl e Reason for Visit * Reason Onset Date Comments Post-Discharge Follow Up 11/01/2015 At home without complaints. Currently working with physical therapy. Encounter Details Date Type Department Care Team (Late st Contact Info) Description 11/01/2015 Telephone [facility] [address] [place] [address] Rita Mcarthur RN Post-Discharge Follow [...] on filedocumented in this encounter Care Teams Freight Separator Relationship Specialty Start Date End Date Kyle Norwood MD PCP - General Family Medicine 10/18/15 Abel Nunez DO PCP - Referring 1 Cardiovascular Disease 10/18/15 Sriram Kunz MD Cardiac Surgery 10/15/15 Byron Otoole MD Support Team Member Cardiovascular Disease 11/18/15 documented as of this encounter
--- OUTSIDE RECORDS SUMMARY | 2024-10-10 13:57 | XMS_ITS | Encounter Summary ---
Author Organization [facility] Address [facility] [place] [address] Care Team Providers Care Legal Support Assistant Name Role Phone Emily Cruz Primary Care Provider Source Comments In the event this information is protected by the Federal Confidentiality of Alcohol and Drug AbusePatient Records regulations: The Federal rules restrict any use of the information to criminally investigate or prosecute any alcohol or drug abuse patient.[facility] Encounter Details Date Type Department Care Team (Late st Contact Info) Description 08/03/2018 Get Medical Advice Pain Management [address] [place] [address] Nelson Damon MD [address] [place] [address] RE: Visit Follow Up Question [...] 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
--- OUTSIDE RECORDS SUMMARY | 2024-10-10 13:57 | XMS_ITS | Encounter Summary ---
Author Organization [facility] Address [address] [place] [address] Care Team Providers Care Ticket Seller Name Role Phone Cruz, Emily Lo DO Primary Care Provider Source Comments In the event this information is protected by the Federal Confidentiality of Alcohol and Drug AbusePatient Records regulations: The Federal rules restrict any use of the information to criminally investigate or prosecute any alcohol or drug abuse patient.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
--- OUTSIDE RECORDS SUMMARY | 2024-10-10 13:57 | XMS_ITS | Patient Health Record ---
Author Organization [facility] Address [facility] [place] [address] Care Team Providers Care Garnett Fixer Name Role Phone Nuno Betancourt Unavailable [phone] Reason For Referral No Information Medications Medication SIG (Take, Route, Fr equency, Duration) Notes Start Date End Date Status Metoprolol Tartrate Active Gabapentin Active Percocet Active Formula 3 1% Apply to affected to enails topical BID; Duration: 3 months 02/20/2014 Active Mobic Active Social History Tobacco Use: Social History Observation Description Date Details (start date - stop date) Never Smoker NA - NA tobacco use Question Answer Notes Patient is a: non smoker Problems Problem Type SNOMED Code ICD Code Onset Dates Problem Status W/U Status Risk Notes Problem Dermatophytosis of nail (230915894) Dermatophytosis of nail (110.1) Active confirmed Plan Of Treatment No Information Insurance Providers Payer Name Payer Address Payer Phone Subscriber Number Group Number Insured Name Patient Relationship to Insured Coverage Start Date Coverage End Date [facility] [address] [place] [phone] [id number] Bud Fernanda clark Self - patient is the insured Medical (General) History Medical History History ICD Code hypertension
--- OUTSIDE RECORDS SUMMARY | 2024-10-10 13:57 | XMS_ITS | Encounter Summary ---
Author Organization [facility] Address [address] [place] [address] Care Team Providers Care Manager Of Marketing Name Role Phone Cruz Emily Lo DO Primary Care Provider Source Comments In the event this information is protected by the Federal Confidentiality of Alcohol and Drug AbusePatient Records regulations: The Federal rules restrict any use of the information to criminally investigate or prosecute any alcohol or drug abuse patient.[facility] Encounter Details Date Type Department Care Team (Late st Contact Info) Description 08/05/2022 Patient Msg Medical Records [address] [place] [address] Provider, Ccf Questionnaire Submission Social History Tobacco [...] N ot on file 04/17/2022 Data from: https://www.neighborhoodatlas.medicine.[facility]/. 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
--- OUTSIDE RECORDS SUMMARY | 2024-10-10 13:58 | XMS_ITS | Encounter Summary ---
Author Organization [facility] Address [address] [place] [address] Phone Care Team Providers Care Plastic Jig And Fixture Builder Name Role Phone Unavailable Primary Care Provider Unavailabl e Encounter Details Date Type Department Care Team (Late st Contact Info) Description 03/30/2024 Scanned Document [facility] [address] [place] [place] [id number] Scanning, Generic Provider Social History Tobacco Use [...]
--- OUTSIDE RECORDS SUMMARY | 2024-10-10 13:58 | XMS_ITS | Encounter Summary ---
Author Organization [facility] Address [address] [place] [address] Care Team Providers Care Ruffling Machine Operator Name Role Phone Cruz, Emily Lo DO Primary Care Provider Source Comments In the event this information is protected by the Federal Confidentiality of Alcohol and Drug AbusePatient Records regulations: The Federal rules restrict any use of the information to criminally investigate or prosecute any alcohol or drug abuse patient.[facility] Encounter Details Date Type Department Care Team (Late st Contact Info) Description 01/01/2022 Get Medical Advice Pain Management [address] [place] [address] Nelson Damon MD [address] [place] [address] Appointment Social History Tobacco Use [...] N ot on file 08/21/2021 Data from: https://www.neighborhoodatlas.medicine.[facility]/. Last address used for calculation [address] 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
--- OUTSIDE RECORDS SUMMARY | 2024-10-10 13:58 | XMS_ITS | Encounter Summary ---
Author Organization [facility] Address [address] [place] [address] Care Team Providers Care Early Childhood Education Instructor Name Role Phone Cruz, Emily Lo DO Primary Care Provider Source Comments In the event this information is protected by the Federal Confidentiality of Alcohol and Drug AbusePatient Records regulations: The Federal rules restrict any use of the information to criminally investigate or prosecute any alcohol or drug abuse patient.[facility] Encounter Details Date Type Department Care Team (Late st Contact Info) Description 01/01/2022 Get Medical Advice Pain Management [address] [place] [address] Nelson Damon MD [address] [place] [address] Appointment Social History Tobacco Use [...] N ot on file 08/21/2021 Data from: https://www.neighborhoodatlas.medicine.[facility]/. 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
--- OUTSIDE RECORDS SUMMARY | 2024-10-10 13:58 | XMS_ITS | Encounter Summary ---
Author Organization [facility] Address [address] [place] [address] Care Team Providers Care Child Care Counselor Name Role Phone Cruz, Emily Lo DO Primary Care Provider Source Comments In the event this information is protected by the Federal Confidentiality of Alcohol and Drug AbusePatient Records regulations: The Federal rules restrict any use of the information to criminally investigate or prosecute any alcohol or drug abuse patient.[facility] Encounter Details Date Type Department Care Team (Late st Contact Info) Description 04/30/2022 Get Medical Advice Pain Management [address] [phone] Louise Suazo PA-C Severe Back Pain Social [...] Data from: https://www.neighborhoodatlas.medicine.[facility]/. 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 Answer Date of Assessment Author No 09/28/2014 2:37 PM EDT Junior Lyons, ELECTRONIC GLUING MACHINE OPERATOR * Are you blind or [...] on filedocumented in this encounter Care Teams Child Care Counselor Relationship Specialty Start Date End Date Emily Cruz DO PCP - General Family Medicine 05/08/11 documented as of this encounter
--- OUTSIDE RECORDS SUMMARY | 2024-10-10 13:58 | XMS_ITS | Encounter Summary ---
Author Organization [facility] Address [address] [place] [address] Care Team Providers Care Sliver Machine Operator Name Role Phone Cruz, Emily Lo DO Primary Care Provider Source Comments In the event this information is protected by the Federal Confidentiality of Alcohol and Drug AbusePatient Records regulations: The Federal rules restrict any use of the information to criminally investigate or prosecute any alcohol or drug abuse patient.[facility] Encounter Details Date Type Department Care Team (Late st Contact Info) Description 09/15/2021 Get Medical Advice Pain Management [address] [place] [address] Nelson Damon MD [address] [place] [address] Back and right side pain [...] N ot on file 08/21/2021 Data from: https://www.neighborhoodatlas.medicine.[facility]/. 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
--- OUTSIDE RECORDS SUMMARY | 2024-10-10 13:58 | XMS_ITS | Encounter Summary ---
Author Organization [facility] Address [address] [place] [address] Care Team Providers Care Vending Machine Collector Name Role Phone Cruz, Emily Lo DO Primary Care Provider Source Comments In the event this information is protected by the Federal Confidentiality of Alcohol and Drug AbusePatient Records regulations: The Federal rules restrict any use of the information to criminally investigate or prosecute any alcohol or drug abuse patient.[facility] Encounter Details Date Type Department Care Team (Late st Contact Info) Description 04/07/2022 Patient Msg Pain Management [id number] [phone] Louise Suazo PA-C medications Social History Tobacco [...] N ot on file 08/21/2021 Data from: https://www.neighborhoodatlas.medicine.[facility]/. 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 Answer Date of Assessment Author No 09/28/2014 2:37 PM EDT Junior Lyons, OFFICIAL COURT INTERPRETER * Are you blind or do you [...] on filedocumented in this encounter Care Teams Vending Machine Collector Relationship Specialty Start Date End Date Emily Cruz DO PCP - General Family Medicine 05/08/11 documented as of this encounter
--- OUTSIDE RECORDS SUMMARY | 2024-10-10 13:58 | XMS_ITS | Encounter Summary ---
Author Organization [facility] Address [address] [place] [address] Care Team Providers Care Avp Name Role Phone CruzTerri bolañosalejandro Lo DO Primary Care Provider Source Comments In the event this information is protected by the Federal Confidentiality of Alcohol and Drug AbusePatient Records regulations: The Federal rules restrict any use of the information to criminally investigate or prosecute any alcohol or drug abuse patient.[facility] Encounter Details Date Type Department Care Team (Late st Contact Info) Description 05/17/2024 Get Medical Advice Pain Management [address] [place] [address] Nelson Damon MD [address] [place] [address] Medical records Social History Tobacco [...] is lower risk 9 10/20/2022 Data from: https://www.neighborhoodatlas.[facility]/. 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
--- OUTSIDE RECORDS SUMMARY | 2024-10-10 13:58 | XMS_ITS | Encounter Summary ---
Author Organization [facility] Address [address] [place] [address] Care Team Providers Care Watch Case Polisher Name Role Phone Cruz, Emily Lo DO [...] Description 12/09/2021 Get Medical Advice Pain Management [address] [phone] Louise Suazo PA-C Medication Social History Tobacco [...] N ot on file 08/21/2021 Data from: https://www.neighborhoodatlas.medicine.[facility]/. 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
--- OUTSIDE RECORDS SUMMARY | 2024-10-10 13:58 | XMS_ITS | Encounter Summary ---
Author Organization [facility] Address [address] [place] [address] Care Team Providers Care University Partnership Rep Name Role Phone Cruz, Emily Lo DO [...] Description 10/15/2021 Get Medical Advice Pain Management [address] [phone] Louise Suazo PA-C Neurologist surgeon appointment Social [...] N ot on file 08/21/2021 Data from: https://www.neighborhoodatlas.medicine.[facility]/. 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
--- OUTSIDE RECORDS SUMMARY | 2024-10-10 13:58 | XMS_ITS | Encounter Summary ---
Author Organization [facility] Address [address] [place] [address] Care Team Providers Care Senior Occupational Therapist Name Role Phone Cruz, Emily Lo DO Primary Care Provider Source Comments In the event this information is protected by the Federal Confidentiality of Alcohol and Drug AbusePatient Records regulations: The Federal rules restrict any use of the information to criminally investigate or prosecute any alcohol or drug abuse patient.[facility] Encounter Details Date Type Department Care Team (Late st Contact Info) Description 02/10/2022 Get Medical Advice Pain Management [phone] [phone] Louise Suazo PA-C Pain flare up Social [...] N ot on file 08/21/2021 Data from: https://www.neighborhoodatlas.medicine.[facility]/. 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 Answer Date of Assessment Author No 09/28/2014 2:37 PM EDT Junior Lyons, ELEVATOR ERECTOR * Are you blind or do you [...] filedocumented in this encounter Care Teams Senior Occupational Therapist Relationship Specialty Start Date End Date Emily Cruz DO PCP - General Family Medicine 05/08/11 documented as of this encounter
--- OUTSIDE RECORDS SUMMARY | 2024-10-10 13:58 | XMS_ITS | Encounter Summary ---
Author Organization [facility] Address [address] [place] [address] Care Team Providers Care Chronometer Assembler Name Role Phone Cruz, Emily Lo DO Primary Care Provider Source Comments In the event this information is protected by the Federal Confidentiality of Alcohol and Drug AbusePatient Records regulations: The Federal rules restrict any use of the information to criminally investigate or prosecute any alcohol or drug abuse patient.[facility] Encounter Details Date Type Department Care Team (Late st Contact Info) Description 09/17/2021 Get Medical Advice Pain Management [address] [place] [address] Nelson Damon MD [address] [place] [address] Mri Social History Tobacco Use [...] N ot on file 08/21/2021 Data from: https://www.neighborhoodatlas.medicine.[facility]/. Last address used for calculation [address] 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
--- OUTSIDE RECORDS SUMMARY | 2024-10-10 13:58 | XMS_ITS | Encounter Summary ---
Author Organization [facility] Address [address] [place] [address] Care Team Providers Care Corrosion Control Technician Name Role Phone Cruz, Emily Lo DO Primary Care Provider Source Comments In the event this information is protected by the Federal Confidentiality of Alcohol and Drug AbusePatient Records regulations: The Federal rules restrict any use of the information to criminally investigate or prosecute any alcohol or drug abuse patient.[facility] Encounter Details Date Type Department Care Team (Late st Contact Info) Description 03/29/2022 Get Medical Advice Pain Management [address] [phone] Louise Suazo PA-C Severe Pain Social History [...] N ot on file 08/21/2021 Data from: https://www.neighborhoodatlas.medicine.[facility]/. 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 Answer Date of Assessment Author No 09/28/2014 2:37 PM EDT Junior Lyons, CALL CENTER PROFESSIONAL * Are you blind or do you [...] on filedocumented in this encounter Care Teams Corrosion Control Technician Relationship Specialty Start Date End Date Emily Cruz DO PCP - General Family Medicine 05/08/11 documented as of this encounter
--- OUTSIDE RECORDS SUMMARY | 2024-10-10 13:58 | XMS_ITS | Encounter Summary ---
Author Organization [facility] Address [facility] [place] [address] Care Team Providers Care Painter Hand Name Role Phone Cruz, Emily Teresita DO Primary Care Provider Source Comments In the event this information is protected by the Federal Confidentiality of Alcohol and Drug AbusePatient Records regulations: The Federal rules restrict any use of the information to criminally investigate or prosecute any alcohol or drug abuse patient.[facility] Encounter Details Date Type Department Care Team (Late st Contact Info) Description 10/10/2021 [place] [address] Provider, [facility] MyChart Message Regarding Financial Assistance [...] N ot on file 08/21/2021 Data from: https://www.neighborhoodatlas.medicine.[facility]/. 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
--- OUTSIDE RECORDS SUMMARY | 2024-10-10 13:58 | XMS_ITS | Encounter Summary ---
Author Organization [facility] Address [address] [place] [address] Care Team Providers Care Fire Suppression Captain Name Role Phone Cruz, Emily Lo DO Primary Care Provider Source Comments In the event this information is protected by the Federal Confidentiality of Alcohol and Drug AbusePatient Records regulations: The Federal rules restrict any use of the information to criminally investigate or prosecute any alcohol or drug abuse patient.[facility] Encounter Details Date Type Department Care Team (Late st Contact Info) Description 09/16/2021 Get Medical Advice Pain Management [address] [place] [address] Nelson Damon MD [address] [place] [address] Mri Social History Tobacco Use [...] on file 08/21/2021 Data from: https://www.neighborhoodatlas.medicine.[facility]/. Last address used for calculation [address] [facility] 08/21/2021 Comments No Sex and Gender Information Value Date Recorded Sex Assigned at Not on file Legal Sex Female 10:13 AM EST Gender Identity Not on file Sexual Orientation Not on file Occupation Industry Job Start Date Job End Date [employer] Not on file Not on file Not [...] on filedocumented in this encounter Care Teams Fire Suppression Captain Relationship Specialty Start Date End Date Emily Cruz DO PCP - General Family Medicine 05/08/11 documented as of this encounter
--- OUTSIDE RECORDS SUMMARY | 2024-10-10 13:58 | XMS_ITS | Encounter Summary ---
Author Organization [facility] Address [address] [place] [address] Care Team Providers Care Industrial Controls Technician Name Role Phone CruzTerri bolañoscey Teresita Primary Care Provider Source Comments In the event this information is protected by the Federal Confidentiality of Alcohol and Drug AbusePatient Records regulations: The Federal rules restrict any use of the information to criminally investigate or prosecute any alcohol or drug abuse patient.[facility] Encounter Details Date Type Department Care Team (Late st Contact Info) Description 02/11/2022 Get Medical Advice Pain Management [address] [phone] Louise Suazo PA-C OPERS Social History Tobacco [...] N ot on file 08/21/2021 Data from: https://www.neighborhoodatlas.medicine.[facility]/. 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 Answer Date of Assessment Author No 09/28/2014 2:37 PM EDT Junior Lyons, NITRIC ACID PLANT OPERATOR * Are you blind or do [...] filedocumented in this encounter Care Teams Industrial Controls Technician Relationship Specialty Start Date End Date Emily Cruz DO PCP - General Family Medicine 05/08/11 documented as of this encounter
--- OUTSIDE RECORDS SUMMARY | 2024-10-10 13:58 | XMS_ITS | Encounter Summary ---
Author Organization [facility] Address [address] [place] [address] Phone Care Team Providers Care Activity Director Name Role Phone Unavailable Primary Care Provider Unavailabl e Encounter Details Date Type Department Care Team (Late st Contact Info) Description 05/01/2021 Orders Only [facility] [address] [place] [address] Conversion, Onbase Social History Tobacco Use Types [...]
--- OUTSIDE RECORDS SUMMARY | 2024-10-10 13:58 | XMS_ITS | Clinical Summary ---
Author Organization [facility] Address [address] [place] [address] Phone Care Team Providers Care Utilities Operator Name Role Phone Unavailable Primary Care Provider [...] mEq ER tabletIndications :Atherosclerotic heart disease of [place] coronary artery with unspecified angina pectoris TAKE 1 TABLET BY MOUTH DAILY 90 tablet 3 4 Active atorvastatin (Lipitor) 80 mg tabletIndications :Coronary artery disease involving [place] coronary artery of [place] heart without angina pectoris Take 1 tablet (80 mg) by mouth once daily at bedtime. 90 tablet 1 4 Active Active Problems Problem Noted Date Diagnosed Date Chest pain, atypical 03/12/2023 Assessment & Plan (04/15/2023 3:56 PM EST): Remains with noncardiac musculoskeletal discomfort along mediastinal incision Coronary artery disease invo lving [place] coronary artery of [place] heart without angina pectoris 03/12/2023 Assessment & [...] 2024 , 03/12/2022, 01/20/2021, Additional history exists Colonoscopy 11/24/2032 11/24/2022 Colorectal Cancer Screening 11/24/2032 RSV High Risk: (Elderly (60+) or Population) Completed 03/23/2023 HIB Vaccines Aged Out No longer eligi ble based on patient's age to complete this topic HPV Vaccines (No Doses Required) Completed Hepatitis A Vaccines Aged Out No long [...]
--- NOTE | 2024-10-10 13:59 | MR_ITS ---
The [address] [address] Patient Name: SHARON CASTRO MRN: [id number] date: 1960 Sex: F Assigned Patient Location: MRI Current Patient Location: MRI Accession/Order Number: [id number] Exam Date: 10/10/2024 15:28 Report Date: 10/10/2024 15:36 At the request of: ALLYN ARAGON MD Procedure: MR lumbar spine wo con MR lumbar spine wo con 10/10/2024 2:56 PM SIGNS AND SYMPTOMS: Spinal stenosis, lumbar region with neurogenic claudication PROTOCOL: Chronic low back pain radiating down right leg COMPARISON: None. FINDINGS: The bones of the lumbar spine are in anatomic alignment. There is preservation of vertebral body heights. There is moderate severe disc height loss at L4-5 and L5-S1. There is a benign-appearing hemangioma in the T12 vertebral body. There is Modic type I endplate edema and Modic type II fatty endplate degenerative change at L5-S1. The conus terminates at the mid L1 vertebral body level. No epidural or paraspinous fluid collection is appreciated. There is right-sided renal cortical atrophy. At T12-L1: There is a normal disc, central canal, and neural foramen. At L1-L2: There is a normal disc, central canal, and neural foramen. At L2-L3: There is a normal disc, central canal, and neural foramen. At L3-L4: There is a normal disc, central canal, and neural foramen. At L4-L5: There is a broad-based disc bulge with facet hypertrophy and ligamentum flavum thickening. There is mild spinal canal narrowing. There is a focal left foraminal and lateral disc protrusion appearing to moderate left neural foraminal narrowing with mild right neural foraminal narrowing. At L5-S1: There is a circumferential disc bulge with endplate osteophyte formation and facet hypertrophy. There is severe right and moderate to severe left neural foraminal narrowing with mass effect on the exiting right L5 nerve roots. There is mild to moderate spinal canal stenosis. MR/MR lumbar spine wo con IMPRESSION: At L5-S1: There is a circumferential disc bulge with endplate osteophyte formation and facet hypertrophy. There is severe right and moderate to severe left neural foraminal narrowing with mass effect on the exiting right L5 nerve roots. There is mild to moderate spinal canal stenosis. At L4-L5: There is a broad-based disc bulge with facet hypertrophy and ligamentum flavum thickening. There is mild spinal canal narrowing. There is a focal left foraminal and lateral disc protrusion appearing to moderate left neural foraminal narrowing with mild right neural foraminal narrowing. Impression dictated by: Kishore Tolliver M.D. 10/10/2024 3:36 PM Dictation Location: [place] [address] Electronically authenticated by: [id number] Y Date: 10/10/2024 15:36
== END 2024-10-10 13:55 | disposition home or self-care (01) ==
LOC: MRI 13:55
PROVIDERS: Visit Provider Anesthesiology
DX: M48.062 Spinal stenosis, lumbar region with neurogenic claudication (principal); M51.369 Other intervertebral disc degeneration, lumbar region without mention of lumbar back pain or lower extremity pain
CPT/HCPCS: 72148

== ENCOUNTER 2024-10-12 09:02 | Outpatient (OUT) | payer OTHER, SELFPAY ==
--- OUTSIDE RECORDS SUMMARY | 2024-10-12 09:05 | XMS_ITS | Encounter Summary ---
Author Organization [facility] Address [address] [place] [address] Care Team Providers Care Superintendent Horticulture Name Role Phone CruzTerri bolañoscey Teresita Primary Care Provider Source Comments In the event this information is protected by the Federal Confidentiality of Alcohol and Drug AbusePatient Records regulations: The Federal rules restrict any use of the information to criminally investigate or prosecute any alcohol or drug abuse patient.[facility] Encounter Details Date Type Department Care Team (Late st Contact Info) Description 08/30/2018 Get Medical Advice Pain Management [address] [phone] Louise Suazo PA-C RE: Upcoming Appointment Question [...] 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 Answer Date of Assessment Author No 09/28/2014 2:37 PM EDT Junior Lyons yuri M, CABLE DISPATCHER * Are you blind or do you have serious difficulty seeing, even when wearing glasses? Answer Date of Assessment Author No 09/28/2014 2:37 PM EDT Junior Lyons yuri Tobin, CABLE DISPATCHER * Do you have serious difficulty walking or climbing stairs? Answer Date of Assessment Author Yes 09/28/2014 2:37 PM EDT Junior Lyons yuri Tobin, CABLE DISPATCHER * Do you have difficulty dressing or bathing? Answer Date of Assessment Author No 09/28/2014 2:37 PM EDT Junior Lyons yuri Tobin, CABLE DISPATCHER * Because of a physical, mental, or emotional condition, do you have difficulty doing errands alone such as visiting a doctor's office or shopping? Answer Date of Assessment Author No 09/28/2014 2:37 PM EDT Junior Lyons yuri Tobin, CABLE DISPATCHER documented as of this encounter Mental Status * Because of a physical, mental, or emotional condition, do you have serious difficulty concentrating, remembering, or making decisions? Answer Entry Date Author No 09/28/2014 2:37 PM EDT Junior Lyons yuri M, CABLE DISPATCHER documented in this encounter Miscellaneous Notes * Telephone Encounter - Maeve Barakat RN - 08/30/2018 3:02 PM EDT Office visit 08/25/18, 1) Suture removal performed today 2) RTC in 4 weeks for follow-up visit with YON. She needs programming adjustment with [employer]. 3) Counseled patient regarding the importance of activity modification. ??Appointment 08/31/18. Maeve Barakat RN documented in this encounter Plan of Treatment Not on file documented as of this encounter Visit Diagnoses Not on filedocumented in this encounter Care Teams Superintendent Horticulture Relationship Specialty Start Date End Date Emily Cruz DO PCP - General Family Medicine 05/08/11 documented as of this encounter
--- OUTSIDE RECORDS SUMMARY | 2024-10-12 09:05 | XMS_ITS | Encounter Summary ---
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
--- OUTSIDE RECORDS SUMMARY | 2024-10-12 09:05 | XMS_ITS | Encounter Summary ---
Author Organization [facility] Address [address] [place] [address] Care Team Providers Care Automatic Head Sawyer Name Role Phone CruzTerri bolañosalejandro Lo DO [...] Description 10/17/2020 Get Medical Advice Pain Management [address] [place] [address] Nelson Damon MD [address] [place] [address] RE: Visit Follow Up Question [...] Data from: https://www.neighborhoodatlas.medicine.[facility]/. 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
--- OUTSIDE RECORDS SUMMARY | 2024-10-12 09:05 | XMS_ITS | Encounter Summary ---
Author Organization [facility] Address [address] [place] [address] Care Team Providers Care Electrocardiogram Technician Name Role Phone CruzTerri bolañosalejandro Lo [...] Description 09/30/2020 Get Medical Advice Pain Management [address] [place] [address] Nelson Damon MD [address] [place] [address] Visit Follow Up Question Social [...] N ot on file 03/09/2020 Data from: https://www.neighborhoodatlas.medicine.[facility]/. 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
--- OUTSIDE RECORDS SUMMARY | 2024-10-12 09:05 | XMS_ITS | Encounter Summary ---
Author Organization [facility] Address [address] [place] [address] Care Team Providers Care Memorial Marker Designer Name Role Phone Cruz, Emily Lo DO Primary Care Provider Source Comments In the event this information is protected by the Federal Confidentiality of Alcohol and Drug AbusePatient Records regulations: The Federal rules restrict any use of the information to criminally investigate or prosecute any alcohol or drug abuse patient.[facility] Encounter Details Date Type Department Care Team (Late st Contact Info) Description 03/06/2019 Get Medical Advice Pain Management [address] [place] [phone] Louise Suazo PA-C RE: Visit Follow Up [...] 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
--- OUTSIDE RECORDS SUMMARY | 2024-10-12 09:05 | XMS_ITS | Encounter Summary ---
Author Organization [facility] Address [address] [place] [address] Care Team Providers Care Water Resources Project Manager Name Role Phone CruzTerri bolañosalejandro Lo [...] Description 09/06/2020 Get Medical Advice Pain Management [address] [place] [address] Nelson Damon MD [address] [place] [address] Upcoming Appointment Question Social History [...] ot on file 03/09/2020 Data from: https://www.neighborhoodatlas.medicine.[facility]/. 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
--- OUTSIDE RECORDS SUMMARY | 2024-10-12 09:05 | XMS_ITS | Encounter Summary ---
Author Organization [facility] Address [address] [place] [address] Care Team Providers Care Cartridge Loading Operator Name Role Phone Cruz, Emily Lo DO Primary Care Provider Source Comments In the event this information is protected by the Federal Confidentiality of Alcohol and Drug AbusePatient Records regulations: The Federal rules restrict any use of the information to criminally investigate or prosecute any alcohol or drug abuse patient.[facility] Encounter Details Date Type Department Care Team (Late st Contact Info) Description 06/04/2020 Patient Msg Pain Management [address] [place] [phone] Louise Suazo PA-C RE: Request an Appointment [...] N ot on file 03/09/2020 Data from: https://www.neighborhoodatlas.medicine.[facility]/. 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 Answer Date of Assessment Author No 09/28/2014 2:37 PM EDT Junior Lynos LPN * Are you blind or do you have serious difficulty seeing, even when wearing glasses? Answer Date of Assessment Author No 09/28/2014 2:37 PM EDT Junior Lyons, CRIME SCENE EVIDENCE TECHNICIAN * Do you have serious difficulty walking or climbing stairs? Answer Date of Assessment Author Yes 09/28/2014 2:37 PM EDT Junior Lyons, CRIME SCENE EVIDENCE TECHNICIAN * Do you have difficulty dressing or bathing? Answer Date of Assessment Author No 09/28/2014 2:37 PM EDT Junior Lyons, CRIME SCENE EVIDENCE TECHNICIAN * Because of a physical, mental, [...] on filedocumented in this encounter Care Teams Cartridge Loading Operator Relationship Specialty Start Date End Date Emily Cruz DO PCP - General Family Medicine 05/08/11 documented as of this encounter
--- OUTSIDE RECORDS SUMMARY | 2024-10-12 09:05 | XMS_ITS | Clinical Summary ---
Author Organization [facility] Address [address] [place] [address] Care Team Providers Care National Business Director Name Role Phone Sriram Kunz MD Unavailable Kyle Norwood MD Primary Care Provider [phone] Abel Nunez DO Unavailable Unatrinidadi Byron Herman [...] CHEMISTRY ORDERABLES Final Resul t LAB, [facility] [address] [place] [address] from Last 3 Months or Most Recently Relevant to Health Maintenance Insurance MMO Member Subscriber Plan / Payer (Ef fective 2014-Present) Name:SHARON VILLAVICENCIO A Relation to Subscriber:Self Name:Sharon Villavicencio Payer ID:Not on file Type:Not on file Address: [place] [id number] Advance Directives For more information, please contact: [phone] (7:30 AM - 6PM [facility], Wednesday-Wednesday) * Full Code (Latest Code Status on File) Date Activated Date Inactivated Comments 10/17/2015 6:09 PM 10/23/2015 2:17 PM Care Teams National Business Director Relationship Specialty Start Date End Date Kyle Norwood MD PCP - General Family Medicine 10/18/15 Abel Nunez DO PCP - Referring 1 Cardiovascular Disease 10/18/15 Sriram Kunz MD Cardiac Surgery 10/15/15 Byron Otoole MD Stull Installer Cardiovascular Disease 11/18/15
--- OUTSIDE RECORDS SUMMARY | 2024-10-12 09:05 | XMS_ITS | Encounter Summary ---
Author Organization [facility] Address [address] [place] [address] Care Team Providers Care Hydraulics Engineer Name Role Phone CruzTerri bolañosalejandro Lo DO Primary Care Provider Source Comments In the event this information is protected by the Federal Confidentiality of Alcohol and Drug AbusePatient Records regulations: The Federal rules restrict any use of the information to criminally investigate or prosecute any alcohol or drug abuse patient.[facility] Encounter Details Date Type Department Care Team (Late st Contact Info) Description 10/27/2019 Get Medical Advice Pain Management [address] [place] [address] Nelson Damon MD [address] [place] [address] RE: Visit Follow Up Question [...] 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
--- OUTSIDE RECORDS SUMMARY | 2024-10-12 09:05 | XMS_ITS | Encounter Summary ---
Author Organization [facility] Address [address] [place] [address] Care Team Providers Care Audio Visual Aide Name Role Phone Cruz, Emily Lo DO Primary Care Provider Source Comments In the event this information is protected by the Federal Confidentiality of Alcohol and Drug AbusePatient Records regulations: The Federal rules restrict any use of the information to criminally investigate or prosecute any alcohol or drug abuse patient.[facility] Encounter Details Date Type Department Care Team (Late st Contact Info) Description 10/08/2020 Get Medical Advice Pain Management [address] [place] [phone] Louise Suazo PA-C RE: Visit Follow Up [...] ot on file 03/09/2020 Data from: https://www.neighborhoodatlas.medicine.[facility]/. 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
--- OUTSIDE RECORDS SUMMARY | 2024-10-12 09:05 | XMS_ITS | Encounter Summary ---
Author Organization [facility] Address [address] [place] [address] Care Team Providers Care Hr Director Name Role Phone Cruz, Emily Lo DO Primary Care Provider Source Comments In the event this information is protected by the Federal Confidentiality of Alcohol and Drug AbusePatient Records regulations: The Federal rules restrict any use of the information to criminally investigate or prosecute any alcohol or drug abuse patient.[facility] Encounter Details Date Type Department Care Team (Late st Contact Info) Description 11/19/2019 Get Medical Advice Pain Management [address] [place] [phone] Louise Suazo PA-C RE: Visit Follow Up [...] 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
--- OUTSIDE RECORDS SUMMARY | 2024-10-12 09:05 | XMS_ITS | Encounter Summary ---
Author Organization [facility] Address [address] [place] [address] Care Team Providers Care Uat Tester Name Role Phone CruzTerri bolañoscey Teresita Primary Care Provider Source Comments In the event this information is protected by the Federal Confidentiality of Alcohol and Drug AbusePatient Records regulations: The Federal rules restrict any use of the information to criminally investigate or prosecute any alcohol or drug abuse patient.[facility] Encounter Details Date Type Department Care Team (Late st Contact Info) Description 12/30/2018 Get Medical Advice Pain Management [address] [place] [phone] Louise Suazo PA-C RE: Visit Follow Up [...] 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 Answer Date of Assessment Author Yes 09/28/2014 2:37 PM EDT Junior Lyons, JAVASCRIPT ENGINEER * Do you have difficulty dressing or bathing? Answer Date of Assessment Author No 09/28/2014 2:37 PM EDT Junior Lyons, JAVASCRIPT ENGINEER * Because of a physical, mental, or [...] on filedocumented in this encounter Care Teams Uat Tester Relationship Specialty Start Date End Date Emily Cruz DO PCP - General Family Medicine 05/08/11 documented as of this encounter
--- OUTSIDE RECORDS SUMMARY | 2024-10-12 09:05 | XMS_ITS | Encounter Summary ---
Author Organization [facility] Address [facility] [place] [address] Care Team Providers Care Spreader Box Operator Name Role Phone Anthony Emily Lo DO Primary Care Provider Source Comments In the event this information is protected by the Federal Confidentiality of Alcohol and Drug AbusePatient Records regulations: The Federal rules restrict any use of the information to criminally investigate or prosecute any alcohol or drug abuse patient.[facility] Reason for Visit * Reason Comments Radiology MRI Encounter Details Date Type Department Care Team (Late st Contact Info) Description 09/27/2020 Radiology [facility] [place] [address] [place], [place] [id number] Abel Dela Cruz RT(R) Radiology MRI Social [...] N ot on file 03/09/2020 Data from: https://www.neighborhoodatlas.medicine.[facility]/. 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
--- OUTSIDE RECORDS SUMMARY | 2024-10-12 09:05 | XMS_ITS | Encounter Summary ---
Author Organization [facility] Address [address] [place] [address] Care Team Providers Care Business Transformation Manager Name Role Phone CruzTerri bolañosalejandro Lo DO Primary Care Provider Source Comments In the event this information is protected by the Federal Confidentiality of Alcohol and Drug AbusePatient Records regulations: The Federal rules restrict any use of the information to criminally investigate or prosecute any alcohol or drug abuse patient.[facility] Encounter Details Date Type Department Care Team (Late st Contact Info) Description 10/20/2020 Get Medical Advice Pain Management [address] [place] [address] Nelson Damon MD [address] [place] [address] Visit Follow Up Question Social [...] N ot on file 03/09/2020 Data from: https://www.neighborhoodatlas.medicine.[facility]/. 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
--- OUTSIDE RECORDS SUMMARY | 2024-10-12 09:05 | XMS_ITS | Encounter Summary ---
Author Organization [facility] Address [address] [place] [address] Care Team Providers Care Clin Nurse Name Role Phone Cruz Emily Lo DO Primary Care Provider Source Comments In the event this information is protected by the Federal Confidentiality of Alcohol and Drug AbusePatient Records regulations: The Federal rules restrict any use of the information to criminally investigate or prosecute any alcohol or drug abuse patient.[facility] Encounter Details Date Type Department Care Team (Late st Contact Info) Description 06/11/2020 Get Medical Advice Pain Management [address] [place] [phone] Louise Suazo PA-C Visit Follow Up Question [...] on file 03/09/2020 Data from: https://www.neighborhoodatlas.medicine.[facility]/. 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
--- OUTSIDE RECORDS SUMMARY | 2024-10-12 09:05 | XMS_ITS | Encounter Summary ---
Author Organization [facility] Address [address] [place] [address] Care Team Providers Care Furnace Charger Name Role Phone CruzTerri bolañoscey Teresita Primary Care Provider Source Comments In the event this information is protected by the Federal Confidentiality of Alcohol and Drug AbusePatient Records regulations: The Federal rules restrict any use of the information to criminally investigate or prosecute any alcohol or drug abuse patient.[facility] Encounter Details Date Type Department Care Team (Late st Contact Info) Description 08/03/2018 Get Medical Advice Pain Management [address] [place] [phone] Louise Suazo PA-C RE: Upcoming Appointment Question [...] 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 Answer Date of Assessment Author No 09/28/2014 2:37 PM EDT Junior Lyons, LINSEED OIL TEMPERER * Are you blind or do you have serious difficulty seeing, even when wearing glasses? Answer Date of Assessment Author No 09/28/2014 2:37 PM EDT Junior Lyons, LINSEED OIL TEMPERER * Do you have serious difficulty walking or climbing stairs? Answer Date of Assessment Author Yes 09/28/2014 2:37 PM EDT Junior Lyons, LINSEED OIL TEMPERER * Do you have difficulty dressing or bathing? Answer Date of Assessment Author No 09/28/2014 2:37 PM EDT Junior Lyons, LINSEED OIL TEMPERER * Because of a physical, mental, or emotional condition, do you have difficulty doing errands alone such as visiting a doctor's office or shopping? Answer Date of Assessment Author No 09/28/2014 2:37 PM EDT Junior Lyons, LINSEED OIL TEMPERER documented as of this encounter Mental Status [...] baby aspirin after her surgery. Dr. Nunez# [phone] Nabila Amanda RN documented in this encounter Plan of Treatment Not on file documented as of this encounter Visit Diagnoses Not on filedocumented in this encounter Care Teams Furnace Charger Relationship Specialty Start Date End Date Emily Cruz DO PCP - General Family Medicine 05/08/11 documented as of this encounter
--- OUTSIDE RECORDS SUMMARY | 2024-10-12 09:05 | XMS_ITS | Encounter Summary ---
Author Organization [facility] Address [address] [place] [address] Care Team Providers Care Front End Manager Name Role Phone Cruz, Emily Lo [...] Description 11/21/2020 Get Medical Advice Pain Management [address] [place] [phone] Louise Suazo PA-C RE: Medication Question (Not [...] N ot on file 03/09/2020 Data from: https://www.neighborhoodatlas.medicine.[facility]/. 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
--- OUTSIDE RECORDS SUMMARY | 2024-10-12 09:05 | XMS_ITS | Encounter Summary ---
Author Organization [facility] Address [address] [place] [address] Care Team Providers Care Rn Plastics Name Role Phone Cruz, Emily Lo DO Primary Care Provider Source Comments In the event this information is protected by the Federal Confidentiality of Alcohol and Drug AbusePatient Records regulations: The Federal rules restrict any use of the information to criminally investigate or prosecute any alcohol or drug abuse patient.[facility] Encounter Details Date Type Department Care Team (Late st Contact Info) Description 08/19/2020 Get Medical Advice Pain Management [address] [place] [phone] Louise Suazo PA-C RE: Visit Follow Up [...] file 03/09/2020 Data from: https://www.neighborhoodatlas.medicine.[facility]/. 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
--- OUTSIDE RECORDS SUMMARY | 2024-10-12 09:05 | XMS_ITS | Encounter Summary ---
Author Organization [facility] Address [address] [place] [address] Care Team Providers Care Mixer Diamond Powder Name Role Phone Sriram Kunz MD Unavailable Kyle Norwood MD Primary Care Provider [phone] Abel Nunez DO Unavailable Unavai Byron Herman MD Unavailable Unavailabl e Reason for Visit * Reason Onset Date Comments Post-Discharge Follow Up 11/01/2015 At home without complaints. Currently working with physical therapy. Encounter Details Date Type Department Care Team (Late st Contact Info) Description 11/01/2015 Telephone [facility] [address] [place] [address] Rita Mcarthur RN Post-Discharge Follow [...] on filedocumented in this encounter Care Teams Mixer Diamond Powder Relationship Specialty Start Date End Date Kyle Norwood MD PCP - General Family Medicine 10/18/15 Abel Nunez DO PCP - Referring 1 Cardiovascular Disease 10/18/15 Sriram Kunz MD Cardiac Surgery 10/15/15 Byron Otoole MD B2B Sales Representative Cardiovascular Disease 11/18/15 documented as of this encounter
--- OUTSIDE RECORDS SUMMARY | 2024-10-12 09:05 | XMS_ITS | Encounter Summary ---
Author Organization [facility] Address [address] [place] [address] Care Team Providers Care Chinese Teacher Name Role Phone Emily Cruz DO Primary Care Provider Source Comments In the event this information is protected by the Federal Confidentiality of Alcohol and Drug AbusePatient Records regulations: The Federal rules restrict any use of the information to criminally investigate or prosecute any alcohol or drug abuse patient.[facility] Encounter Details Date Type Department Care Team (Late st Contact Info) Description 04/29/2021 Patient Msg Pain Management [address] [place] [address] Provider, Ccf Rescheduled Procedure Date [...] N ot on file 03/09/2020 Data from: https://www.neighborhoodatlas.medicine.[facility]/. 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
--- OUTSIDE RECORDS SUMMARY | 2024-10-12 09:05 | XMS_ITS | Encounter Summary ---
Author Organization [facility] Address [address] [place] [address] Care Team Providers Care Application Trainer Name Role Phone CruzTerri bolañosalejandro Lo DO Primary Care Provider Source Comments In the event this information is protected by the Federal Confidentiality of Alcohol and Drug AbusePatient Records regulations: The Federal rules restrict any use of the information to criminally investigate or prosecute any alcohol or drug abuse patient.[facility] Encounter Details Date Type Department Care Team (Late st Contact Info) Description 02/06/2018 Get Medical Advice Pain Management [address] [place] [address] Nelson Damon MD [address] [place] [address] RE: Visit Follow Up Question [...] 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
--- OUTSIDE RECORDS SUMMARY | 2024-10-12 09:05 | XMS_ITS | Encounter Summary ---
Author Organization [facility] Address [address] [place] [address] Care Team Providers Care Glue Spreader Name Role Phone Cruz, Emily Lo DO [...] Description 04/13/2020 Get Medical Advice Pain Management [address] [place] [phone] Louise Suazo PA-C RE: Visit Follow Up [...] N ot on file 03/09/2020 Data from: https://www.neighborhoodatlas.medicine.[facility]/. 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
--- OUTSIDE RECORDS SUMMARY | 2024-10-12 09:05 | XMS_ITS | Encounter Summary ---
Author Organization [facility] Address [address] [place] [address] Care Team Providers Care Developer Advisor Name Role Phone Anthony Emily Lo DO Primary Care Provider Source Comments In the event this information is protected by the Federal Confidentiality of Alcohol and Drug AbusePatient Records regulations: The Federal rules restrict any use of the information to criminally investigate or prosecute any alcohol or drug abuse patient.[facility] Encounter Details Date Type Department Care Team (Late st Contact Info) Description 05/26/2021 Patient Msg Pain Management [id number] [phone] Provider, Ccf Covid Test Social History Tobacco [...] N ot on file 03/09/2020 Data from: https://www.neighborhoodatlas.medicine.[facility]/. 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
--- OUTSIDE RECORDS SUMMARY | 2024-10-12 09:05 | XMS_ITS | Encounter Summary ---
Author Organization [facility] Address [address] [place] [address] Care Team Providers Care Sawmill Hand Name Role Phone Cruz, Emily Lo DO Primary Care Provider Source Comments In the event this information is protected by the Federal Confidentiality of Alcohol and Drug AbusePatient Records regulations: The Federal rules restrict any use of the information to criminally investigate or prosecute any alcohol or drug abuse patient.[facility] Encounter Details Date Type Department Care Team (Late st Contact Info) Description 10/07/2020 Get Medical Advice Pain Management [address] [phone] Louise Suazo PA-C RE: Visit Follow Up [...] ot on file 03/09/2020 Data from: https://www.neighborhoodatlas.medicine.[facility]/. 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
--- OUTSIDE RECORDS SUMMARY | 2024-10-12 09:05 | XMS_ITS | Encounter Summary ---
Author Organization [facility] Address [address] [place] [address] Care Team Providers Care Surface Plate Finisher Name Role Phone Cruz, Emily Lo DO Primary Care Provider Source Comments In the event this information is protected by the Federal Confidentiality of Alcohol and Drug AbusePatient Records regulations: The Federal rules restrict any use of the information to criminally investigate or prosecute any alcohol or drug abuse patient.[facility] Encounter Details Date Type Department Care Team (Late st Contact Info) Description 09/30/2020 Get Medical Advice Pain Management [address] [place] [address] [phone] Louise Suazo PA-C RE: Visit Follow Up [...] N ot on file 03/09/2020 Data from: https://www.neighborhoodatlas.medicine.[facility]/. 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
--- OUTSIDE RECORDS SUMMARY | 2024-10-12 09:05 | XMS_ITS | Encounter Summary ---
Author Organization [facility] Address [address] [place] [address] Care Team Providers Care Onion Topper Name Role Phone Cruz, Emily Lo DO Primary Care Provider Source Comments In the event this information is protected by the Federal Confidentiality of Alcohol and Drug AbusePatient Records regulations: The Federal rules restrict any use of the information to criminally investigate or prosecute any alcohol or drug abuse patient.[facility] Encounter Details Date Type Department Care Team (Late st Contact Info) Description 09/30/2020 Get Medical Advice Pain Management [address] [phone] Louise Suazo PA-C RE: Upcoming Appointment Question [...] on file 03/09/2020 Data from: https://www.neighborhoodatlas.medicine.[facility]/. 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
--- OUTSIDE RECORDS SUMMARY | 2024-10-12 09:05 | XMS_ITS | Encounter Summary ---
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
--- OUTSIDE RECORDS SUMMARY | 2024-10-12 09:05 | XMS_ITS | Encounter Summary ---
Author Organization [facility] Address [address] [place] [address] Care Team Providers Care Filter Changing Technician Name Role Phone Cruz, Emily Lo DO Primary Care Provider Source Comments In the event this information is protected by the Federal Confidentiality of Alcohol and Drug AbusePatient Records regulations: The Federal rules restrict any use of the information to criminally investigate or prosecute any alcohol or drug abuse patient.[facility] Encounter Details Date Type Department Care Team (Late st Contact Info) Description 03/15/2021 Get Medical Advice Pain Management [address] [place] [address] Nelson Damon MD [address] [place] [address] Pain over my back and [...] N ot on file 03/09/2020 Data from: https://www.neighborhoodatlas.medicine.[facility]/. 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
--- OUTSIDE RECORDS SUMMARY | 2024-10-12 09:05 | XMS_ITS | Encounter Summary ---
Author Organization [facility] Address [address] [place] [address] Care Team Providers Care Histology Assistant Name Role Phone CruzTerri bolañosalejandro Lo DO Primary Care Provider Source Comments In the event this information is protected by the Federal Confidentiality of Alcohol and Drug AbusePatient Records regulations: The Federal rules restrict any use of the information to criminally investigate or prosecute any alcohol or drug abuse patient.[facility] Encounter Details Date Type Department Care Team (Late st Contact Info) Description 04/06/2019 Get Medical Advice Pain Management [address] [phone] Louise Suazo PA-C RE: Upcoming Appointment Question [...] 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
--- OUTSIDE RECORDS SUMMARY | 2024-10-12 09:05 | XMS_ITS | Encounter Summary ---
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
--- OUTSIDE RECORDS SUMMARY | 2024-10-12 09:05 | XMS_ITS | Encounter Summary ---
Author Organization [facility] Address [address] [place] [address] Care Team Providers Care Fruit Peeler Name Role Phone Cruz, Emily Lo DO Primary Care Provider Source Comments In the event this information is protected by the Federal Confidentiality of Alcohol and Drug AbusePatient Records regulations: The Federal rules restrict any use of the information to criminally investigate or prosecute any alcohol or drug abuse patient.[facility] Encounter Details Date Type Department Care Team (Late st Contact Info) Description 11/11/2020 Get Medical Advice Pain Management [address] [phone] Louise Suazo PA-C RE: Visit Follow Up [...] ot on file 03/09/2020 Data from: https://www.neighborhoodatlas.medicine.[facility]/. 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
--- OUTSIDE RECORDS SUMMARY | 2024-10-12 09:05 | XMS_ITS | Encounter Summary ---
Author Organization [facility] Address [address] [place] [address] Care Team Providers Care Wind Development Director Name Role Phone Cruz, Emily Lo DO Primary Care Provider Source Comments In the event this information is protected by the Federal Confidentiality of Alcohol and Drug AbusePatient Records regulations: The Federal rules restrict any use of the information to criminally investigate or prosecute any alcohol or drug abuse patient.[facility] Encounter Details Date Type Department Care Team (Late st Contact Info) Description 03/02/2018 Patient Msg Pain Management [address] [place] [address] Nelson Damon MD [address] [place] [address] RE: Request an Appointment Social [...] 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
--- OUTSIDE RECORDS SUMMARY | 2024-10-12 09:05 | XMS_ITS | Encounter Summary ---
Author Organization [facility] Address [address] [place] [address] Care Team Providers Care Stone Circular Sawyer Name Role Phone CruzTerri bolañosalejandro Lo DO Primary Care Provider Source Comments In the event this information is protected by the Federal Confidentiality of Alcohol and Drug AbusePatient Records regulations: The Federal rules restrict any use of the information to criminally investigate or prosecute any alcohol or drug abuse patient.[facility] Encounter Details Date Type Department Care Team (Late st Contact Info) Description 11/16/2017 Get Medical Advice Pain Management [address] [place] [address] Nelson Damon MD [address] [place] [address] RE: Visit Follow Up Question [...] 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
--- OUTSIDE RECORDS SUMMARY | 2024-10-12 09:05 | XMS_ITS | Encounter Summary ---
Author Organization [facility] Address [address] [place] [address] Care Team Providers Care Pet Store Merchandiser Name Role Phone CruzTerri bolañosalejandro Lo DO Primary Care Provider Source Comments In the event this information is protected by the Federal Confidentiality of Alcohol and Drug AbusePatient Records regulations: The Federal rules restrict any use of the information to criminally investigate or prosecute any alcohol or drug abuse patient.[facility] Encounter Details Date Type Department Care Team (Late st Contact Info) Description 09/24/2019 Get Medical Advice Pain Management [address] [place] [address] Nelson Damon MD [address] [place] [address] RE: Visit Follow Up Question [...] 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
--- OUTSIDE RECORDS SUMMARY | 2024-10-12 09:05 | XMS_ITS | Encounter Summary ---
Author Organization [facility] Address [address] [place] [address] Care Team Providers Care Auto Tune Up Mechanic Name Role Phone Cruz, Emily Lo DO Primary Care Provider Source Comments In the event this information is protected by the Federal Confidentiality of Alcohol and Drug AbusePatient Records regulations: The Federal rules restrict any use of the information to criminally investigate or prosecute any alcohol or drug abuse patient.[facility] Encounter Details Date Type Department Care Team (Late st Contact Info) Description 10/21/2020 Patient Msg Pain Management [address] [place] [address] Nelson Damon MD [address] [place] [address] Its always my pleasure Social [...] N ot on file 03/09/2020 Data from: https://www.neighborhoodatlas.medicine.[facility]/. 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
--- OUTSIDE RECORDS SUMMARY | 2024-10-12 09:05 | XMS_ITS | Encounter Summary ---
Author Organization [facility] Address [address] [place] [address] Care Team Providers Care Sales Vice President Name Role Phone Cruz, Emily Lo DO [...] Description 12/30/2020 Get Medical Advice Pain Management [address] [phone] Louise Suazo PA-C RE: Visit Follow Up [...] Data from: https://www.neighborhoodatlas.medicine.[facility]/. 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
--- OUTSIDE RECORDS SUMMARY | 2024-10-12 09:06 | XMS_ITS | Clinical Summary ---
Author Organization [facility] Address [facility] [place] [id number] Care Team Providers Care Bench Grinder Name Role Phone Emily Cruz DO Primary [...] 10/26/19 19 019 Discontin ued(Smith ing Therapy/D gambell Form) Active Problems Problem Noted Date Diagnosed [...] is lower risk 9 10/20/2022 Data from: https://www.neighborhoodatlas.medicine.[facility].edu/. 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 Not on file Not [...] COMP METABOLIC PANEL (02/11/2023 9:57 AM EST) [facility] Protein, Total 6.6 6.3 - 8.0 g/dL 02/11/2023 10:26 AM [facility] Albumin 4.0 3.9 - 4.9 g/dL 02/11/2023 10:26 AM [facility] Calcium, Total 9.6 8.5 - 10.2 mg/dL 02/11/2023 10:26 AM [facility] Bilirubin, Total 0.4 0.2 - 1.3 mg/dL 02/11/2023 10:26 AM [facility] Alkaline Phosphatase 65 34 - 123 U/L 02/11/2023 10:26 AM [facility] AST 20 13 - 35 U/L 02/11/2023 10:26 AM [facility] ALT 23 7 - 38 U/L 02/11/2023 10:26 AM [facility] Glucose 118(H) 74 - 99 mg/dL 02/11/2023 10:26 AM [facility] Comment: The [place] Diabetes Association (ADA) provides guidance for cutoff [...] Standards of Medical Care in Diabetes 2016, [place] Diabetes Association. Diabetes Care. 2016.39(Suppl 1). BUN 18 7 - 21 mg/dL 02/11/2023 10:26 AM [facility] Creatinine 1.36(H) 0.58 - 0.96 mg/dL 02/11/2023 10:26 AM EST [facility] Sodium 143 136 - 144 mmol/L 02/11/2023 10:26 AM [facility] Potassium 4.2 3.7 - 5.1 mmol/L 02/11/2023 10:26 AM [facility] Chloride 107(H) 97 - 105 mmol/L 02/11/2023 10:26 AM [facility] CO2 26 22 - 30 mmol/L 02/11/2023 10:26 AM [facility] Anion Gap 10 9 - 18 mmol/L 02/11/2023 10:26 AM [facility] Estimated Glomerular Filtration Rate 44(L) >=60 mL/min/1. 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
--- OUTSIDE RECORDS SUMMARY | 2024-10-12 09:06 | XMS_ITS | Encounter Summary ---
Author Organization [facility] Address [address] [place] [address] Care Team Providers Care Water Superintendent Name Role Phone CruzTerri bolañosalejandro Lo DO Primary Care Provider Source Comments In the event this information is protected by the Federal Confidentiality of Alcohol and Drug AbusePatient Records regulations: The Federal rules restrict any use of the information to criminally investigate or prosecute any alcohol or drug abuse patient.[facility] Encounter Details Date Type Department Care Team (Late st Contact Info) Description 08/05/2022 Patient Msg Pain Management [address] [place] [address] Nelson Damon MD [address] [place] [address] Request an Appointment Social History [...] N ot on file 04/17/2022 Data from: https://www.neighborhoodatlas.medicine.[facility]/. Last address used for calculation [address] 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
--- OUTSIDE RECORDS SUMMARY | 2024-10-12 09:06 | XMS_ITS | Encounter Summary ---
Author Organization [facility] Address [address] [place] [address] Care Team Providers Care Medical Affairs Specialist Name Role Phone Cruz, Emily Lo [...] Description 08/21/2022 Get Medical Advice Pain Management [address] [phone] Louise Suazo PA-C Severe pain. Social History [...] N ot on file 04/17/2022 Data from: https://www.neighborhoodatlas.medicine.[facility]/. 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 Answer Date of Assessment Author No 09/28/2014 2:37 PM EDT Junior Lyons, CABIN AGENT * Are you blind or do you [...] on filedocumented in this encounter Care Teams Medical Affairs Specialist Relationship Specialty Start Date End Date Emily Cruz DO PCP - General Family Medicine 05/08/11 documented as of this encounter
--- OUTSIDE RECORDS SUMMARY | 2024-10-12 09:06 | XMS_ITS | Encounter Summary ---
Author Organization [facility] Address [address] [place] [address] Care Team Providers Care Insulator Apprentice Name Role Phone CruzTerri bolañosalejandro Lo DO [...] Description 04/12/2020 Get Medical Advice Pain Management [address] [place] [address] Nelson Damon MD [address] [place] [address] RE: Visit Follow Up Question [...] N ot on file 03/09/2020 Data from: https://www.neighborhoodatlas.medicine.[facility]/. 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
--- OUTSIDE RECORDS SUMMARY | 2024-10-12 09:06 | XMS_ITS | Encounter Summary ---
Author Organization [facility] Address [address] [place] [address] Care Team Providers Care Systems Designer Name Role Phone Cruz, Emily Lo DO Primary Care Provider Source Comments In the event this information is protected by the Federal Confidentiality of Alcohol and Drug AbusePatient Records regulations: The Federal rules restrict any use of the information to criminally investigate or prosecute any alcohol or drug abuse patient.[facility] Encounter Details Date Type Department Care Team (Late st Contact Info) Description 04/30/2022 Get Medical Advice Pain Management [address] [phone] Louise Suazo PA-C Severe Back Pain Social [...] N ot on file 04/17/2022 Data from: https://www.neighborhoodatlas.medicine.[facility]/. 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 Answer Date of Assessment Author No 09/28/2014 2:37 PM EDT Junior Lyons, CISSP * Are you blind or do you [...] on filedocumented in this encounter Care Teams Systems Designer Relationship Specialty Start Date End Date Emily Cruz DO PCP - General Family Medicine 05/08/11 documented as of this encounter
--- OUTSIDE RECORDS SUMMARY | 2024-10-12 09:06 | XMS_ITS | Encounter Summary ---
Author Organization [facility] Address [address] [place] [address] Care Team Providers Care Mechanical Artist Name Role Phone Anthony Emily Lo DO [...] Info) Description 04/06/2023 Patient Msg Pain Management [address] [phone] Provider, Ccf Appointment Reminder Social History Tobacco [...] is lower risk 9 10/20/2022 Data from: https://www.neighborhoodatlas.medicine.[facility]/. 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
--- OUTSIDE RECORDS SUMMARY | 2024-10-12 09:06 | XMS_ITS | Encounter Summary ---
Author Organization [facility] Address [address] [place] [address] Care Team Providers Care Leather Grainer Name Role Phone CruzTerri bolañosalejandro Lo DO Primary Care Provider Source Comments In the event this information is protected by the Federal Confidentiality of Alcohol and Drug AbusePatient Records regulations: The Federal rules restrict any use of the information to criminally investigate or prosecute any alcohol or drug abuse patient.[facility] Encounter Details Date Type Department Care Team (Late st Contact Info) Description 09/02/2021 Get Medical Advice Pain Management [address] [place] [address] Nelson Damon MD [address] [place] [address] Sciatica Pain Social History Tobacco [...] on file 08/21/2021 Data from: https://www.neighborhoodatlas.medicine.[facility]/. 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
--- OUTSIDE RECORDS SUMMARY | 2024-10-12 09:06 | XMS_ITS | Encounter Summary ---
Author Organization [facility] Address [address] [place] [address] Care Team Providers Care Glue Jointer Feeder Name Role Phone Anthony Emily Lo DO [...] Description 08/05/2022 Patient Msg Medical Records [address] [place] [address] Provider, Ccf Questionnaire Submission Social History Tobacco [...] N ot on file 04/17/2022 Data from: https://www.neighborhoodatlas.medicine.[facility]/. 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
--- OUTSIDE RECORDS SUMMARY | 2024-10-12 09:06 | XMS_ITS | Clinical Summary ---
Author Organization [facility] Address [address] [place] [address] Phone Care Team Providers Care Bed And Breakfast Innkeeper Name Role Phone Unavailable Primary Care Provider [...] mEq ER tabletIndications :Atherosclerotic heart disease of [place] coronary artery with unspecified angina pectoris TAKE 1 TABLET BY MOUTH DAILY 90 tablet 3 4 Active atorvastatin (Lipitor) 80 mg tabletIndications :Coronary artery disease involving [place] coronary artery of [place] heart without angina pectoris Take 1 tablet (80 mg) by mouth once daily at bedtime. 90 tablet 1 4 Active Active Problems Problem Noted Date Diagnosed Date Chest pain, atypical 03/12/2023 Assessment & Plan (04/15/2023 3:56 PM EST): Remains with noncardiac musculoskeletal discomfort along mediastinal incision Coronary artery disease invo [place]ving [place] coronary artery of [place] heart without angina pectoris 03/12/2023 Assessment & [...]
--- OUTSIDE RECORDS SUMMARY | 2024-10-12 09:06 | XMS_ITS | Encounter Summary ---
Author Organization [facility] Address [address] [place] [address] Care Team Providers Care Poultry Trimmer Name Role Phone Cruz, Emily Lo DO Primary Care Provider Source Comments In the event this information is protected by the Federal Confidentiality of Alcohol and Drug AbusePatient Records regulations: The Federal rules restrict any use of the information to criminally investigate or prosecute any alcohol or drug abuse patient.[facility] Encounter Details Date Type Department Care Team (Late st Contact Info) Description 01/01/2022 Get Medical Advice Pain Management [address] [place] [address] Nelson Damon MD [address] [place] [address] Appointment Social History Tobacco Use [...] ot on file 08/21/2021 Data from: https://www.neighborhoodatlas.medicine.[facility]/. 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
--- OUTSIDE RECORDS SUMMARY | 2024-10-12 09:06 | XMS_ITS | Encounter Summary ---
Author Organization [facility] Address [address] [place] [address] Care Team Providers Care Pbx Repairer Name Role Phone Anthony Emily Lo DO Primary Care Provider Source Comments In the event this information is protected by the Federal Confidentiality of Alcohol and Drug AbusePatient Records regulations: The Federal rules restrict any use of the information to criminally investigate or prosecute any alcohol or drug abuse patient.[facility] Encounter Details Date Type Department Care Team (Late st Contact Info) Description 08/22/2021 Patient Msg Pain Management [id number] [phone] Provider, Cclasha OPERS Form Social History Tobacco [...] N ot on file 08/21/2021 Data from: https://www.neighborhoodatlas.medicine.[facility]/. 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
--- OUTSIDE RECORDS SUMMARY | 2024-10-12 09:06 | XMS_ITS | Encounter Summary ---
Author Organization [facility] Address [address] [place] [address] Care Team Providers Care Front Desk Officer Name Role Phone CruzTerri bolañosalejandro Lo DO [...] Description 05/17/2024 Get Medical Advice Pain Management [address] [place] [address] Nelson Damon MD [address] [place] [address] Medical records Social History Tobacco [...] is lower risk 9 10/20/2022 Data from: https://www.neighborhoodatlas.[facility]/. 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
--- OUTSIDE RECORDS SUMMARY | 2024-10-12 09:06 | XMS_ITS | Encounter Summary ---
Author Organization [facility] Address [address] [place] [address] Care Team Providers Care Instrumentation Engineering Technician Name Role Phone Cruz, Emily Lo [...] Description 09/17/2021 Get Medical Advice Pain Management [address] [place] [address] Nelson Damon MD [address] [place] [address] Mri Social History Tobacco Use [...] N ot on file 08/21/2021 Data from: https://www.neighborhoodatlas.medicine.[facility]/. 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
--- OUTSIDE RECORDS SUMMARY | 2024-10-12 09:06 | XMS_ITS | Encounter Summary ---
Author Organization [facility] Address [address] [place] [address] Care Team Providers Care Hydroponics Worker Name Role Phone Cruz, Emily Lo [...] Info) Description 04/07/2022 Patient Msg Pain Management [address] [phone] Louise Suazo PA-C medications Social History Tobacco [...] N ot on file 08/21/2021 Data from: https://www.neighborhoodatlas.medicine.[facility]/. 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 Answer Date of Assessment Author No 09/28/2014 2:37 PM EDT Junior Lyons, DIVEMASTER * Are you blind or do you [...] on filedocumented in this encounter Care Teams Hydroponics Worker Relationship Specialty Start Date End Date Emily Cruz DO PCP - General Family Medicine 05/08/11 documented as of this encounter
--- OUTSIDE RECORDS SUMMARY | 2024-10-12 09:06 | XMS_ITS | Encounter Summary ---
Author Organization [facility] Address [address] [place] [address] Care Team Providers Care Junior Automation Engineer Name Role Phone CruzTerri bolañosalejandro Lo DO Primary Care Provider Source Comments In the event this information is protected by the Federal Confidentiality of Alcohol and Drug AbusePatient Records regulations: The Federal rules restrict any use of the information to criminally investigate or prosecute any alcohol or drug abuse patient.[facility] Encounter Details Date Type Department Care Team (Late st Contact Info) Description 10/14/2022 Get Medical Advice Pain Management [address] [phone] Louise Suazo PA-C My appointment Social History [...] N ot on file 04/17/2022 Data from: https://www.neighborhoodatlas.medicine.[facility]/. 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 Answer Date of Assessment Author No 09/28/2014 2:37 PM EDT Junior Lyons, EDUCATION AND TRAINING MANAGER * Are you blind or do [...] on filedocumented in this encounter Care Teams Junior Automation Engineer Relationship Specialty Start Date End Date Emily Cruz DO PCP - General Family Medicine 05/08/11 documented as of this encounter
--- OUTSIDE RECORDS SUMMARY | 2024-10-12 09:06 | XMS_ITS | Encounter Summary ---
Author Organization [facility] Address [address] [place] [address] Care Team Providers Care Supervisor Costuming Name Role Phone Cruz, Emily Lo DO Primary Care Provider Source Comments In the event this information is protected by the Federal Confidentiality of Alcohol and Drug AbusePatient Records regulations: The Federal rules restrict any use of the information to criminally investigate or prosecute any alcohol or drug abuse patient.[facility] Encounter Details Date Type Department Care Team (Late st Contact Info) Description 09/16/2021 Get Medical Advice Pain Management [address] [place] [address] Nelson Damon MD [address] [place] [address] Mri Social History Tobacco Use [...] ot on file 08/21/2021 Data from: https://www.neighborhoodatlas.medicine.[facility]/. 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
--- OUTSIDE RECORDS SUMMARY | 2024-10-12 09:06 | XMS_ITS | Encounter Summary ---
Author Organization [facility] Address [address] [place] [address] Care Team Providers Care Electro Mechanical Solar Technician Name Role Phone Cruz, Emily Lo DO Primary Care Provider Source Comments In the event this information is protected by the Federal Confidentiality of Alcohol and Drug AbusePatient Records regulations: The Federal rules restrict any use of the information to criminally investigate or prosecute any alcohol or drug abuse patient.[facility] Encounter Details Date Type Department Care Team (Late st Contact Info) Description 03/29/2022 Get Medical Advice Pain Management [address] [phone] Louise Suazo PA-C Severe Pain Social History [...] file 08/21/2021 Data from: https://www.neighborhoodatlas.medicine.[facility]/. 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 Answer Date of Assessment Author No 09/28/2014 2:37 PM EDT Junior Lyons, MUSIC EDUCATION ADJUNCT PROFESSOR * Are you blind or do you [...] on filedocumented in this encounter Care Teams Electro Mechanical Solar Technician Relationship Specialty Start Date End Date Emily Cruz DO PCP - General Family Medicine 05/08/11 documented as of this encounter
--- OUTSIDE RECORDS SUMMARY | 2024-10-12 09:06 | XMS_ITS | Encounter Summary ---
Author Organization [facility] Address [address] [place] [address] Care Team Providers Care Learning Technologist Name Role Phone CruzTerri bolañosalejandro Lo DO [...] Description 06/11/2021 Get Medical Advice Pain Management [address] [place] [address] Nelson Damon MD [address] [place] [address] New symptom Social History Tobacco [...] on file 03/09/2020 Data from: https://www.neighborhoodatlas.medicine.[facility]/. 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
--- OUTSIDE RECORDS SUMMARY | 2024-10-12 09:06 | XMS_ITS | Encounter Summary ---
Author Organization [facility] Address [address] [place] [address] Care Team Providers Care Picking Crew Supervisor Name Role Phone Cruz, Emily Lo [...] Info) Description 11/02/2023 Patient Msg Pain Management [address] [phone] Marcelle Amos [address] [place] [address] Procedure Cancelled Social History Tobacco Use Types [...] is lower risk 9 10/20/2022 Data from: https://www.neighborhoodatlas.medicine.[facility]/. 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
--- OUTSIDE RECORDS SUMMARY | 2024-10-12 09:06 | XMS_ITS | Encounter Summary ---
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
--- OUTSIDE RECORDS SUMMARY | 2024-10-12 09:06 | XMS_ITS | Encounter Summary ---
Author Organization [facility] Address [address] [place] [address] Care Team Providers Care Gluing Machine Operator Name Role Phone Cruz, Emily Teresita DO [...] Description 08/13/2021 Get Medical Advice Pain Management [address] [place] [address] Eli Jansen, NEWS ASSISTANT.WELDER [employer] [address] [place] [address] Neck, cervical and my knees [...] ot on file 03/09/2020 Data from: https://www.neighborhoodatlas.medicine.[facility]/. 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
--- OUTSIDE RECORDS SUMMARY | 2024-10-12 09:06 | XMS_ITS | Encounter Summary ---
Author Organization [facility] Address [address] [place] [address] Care Team Providers Care Paralegals Name Role Phone Anthony Emily Lo DO [...] Info) Description 10/18/2023 Patient Msg Pain Management [address] [phone] Provider, Ccf Schedule Appointment Social History Tobacco [...] is lower risk 9 10/20/2022 Data from: https://www.neighborhoodatlas.medicine.[facility]/. 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
--- OUTSIDE RECORDS SUMMARY | 2024-10-12 09:06 | XMS_ITS | Encounter Summary ---
Author Organization [facility] Address [address] [place] [address] Care Team Providers Care Dessert Cup Machine Feeder Name Role Phone Cruz, Emily Lo DO Primary Care Provider Source Comments In the event this information is protected by the Federal Confidentiality of Alcohol and Drug AbusePatient Records regulations: The Federal rules restrict any use of the information to criminally investigate or prosecute any alcohol or drug abuse patient.[facility] Encounter Details Date Type Department Care Team (Late st Contact Info) Description 08/13/2021 Patient Msg Pain Management [address] [place] [address] Eli Jansen, COMPLIANCE ENGINEER PRODUCTS.OUTER DIAMETER GRINDER TOOL [address] [place] [address] Request an Appointment Social History [...] on file 03/09/2020 Data from: https://www.neighborhoodatlas.medicine.[facility]/. 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
--- OUTSIDE RECORDS SUMMARY | 2024-10-12 09:06 | XMS_ITS | Encounter Summary ---
Author Organization [facility] Address [address] [place] [address] Care Team Providers Care Deckhand Oyster Dredge Name Role Phone Anthony Emily Lo DO [...] Info) Description 08/26/2021 Patient Msg Rheumatology [address] [phone] Kelly Andrews DO [address] [place] [address] Request an Appointment Social History [...] ot on file 08/21/2021 Data from: https://www.neighborhoodatlas.medicine.[facility]/. 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
--- OUTSIDE RECORDS SUMMARY | 2024-10-12 09:06 | XMS_ITS | Encounter Summary ---
Author Organization [facility] Address [address] [place] [address] Care Team Providers Care Insurance Application Investigator Name Role Phone Cruz, Emily Lo DO [...] Description 09/22/2022 Get Medical Advice Pain Management [address] [phone] Louise Suazo PA-C Extreme Pain Social History [...] from: https://www.neighborhoodatlas.medicine.[facility]/. 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 Answer Date of Assessment Author No 09/28/2014 2:37 PM EDT Junior Lyons, CLAIMS CONSULTANT * Are you blind or do you [...] on filedocumented in this encounter Care Teams Insurance Application Investigator Relationship Specialty Start Date End Date Emily Cruz DO PCP - General Family Medicine 05/08/11 documented as of this encounter
--- OUTSIDE RECORDS SUMMARY | 2024-10-12 09:06 | XMS_ITS | Encounter Summary ---
Author Organization [facility] Address [address] [place] [address] Care Team Providers Care Fire Technician Name Role Phone Anthony Emily Lo DO Primary Care Provider Source Comments In the event this information is protected by the Federal Confidentiality of Alcohol and Drug AbusePatient Records regulations: The Federal rules restrict any use of the information to criminally investigate or prosecute any alcohol or drug abuse patient.[facility] Encounter Details Date Type Department Care Team (Late st Contact Info) Description 08/05/2022 Patient Msg Medical Records [address] [place] [address] Provider, Ccf Questionnaire Submission Social History Tobacco [...] N ot on file 04/17/2022 Data from: https://www.neighborhoodatlas.medicine.[facility]/. 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
--- OUTSIDE RECORDS SUMMARY | 2024-10-12 09:06 | XMS_ITS | Encounter Summary ---
Author Organization [facility] Address [address] [place] [address] Care Team Providers Care Driller'S Offsider Name Role Phone Cruz, Emily Lo DO Primary Care Provider Source Comments In the event this information is protected by the Federal Confidentiality of Alcohol and Drug AbusePatient Records regulations: The Federal rules restrict any use of the information to criminally investigate or prosecute any alcohol or drug abuse patient.[facility] Encounter Details Date Type Department Care Team (Late st Contact Info) Description 08/19/2022 Get Medical Advice Pain Management [address] [place] [address] Nelson Damon MD [address] [place] [address] Severe Pain Social History Tobacco [...] N ot on file 04/17/2022 Data from: https://www.neighborhoodatlas.medicine.[facility]/. 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
--- OUTSIDE RECORDS SUMMARY | 2024-10-12 09:06 | XMS_ITS | Encounter Summary ---
Author Organization [facility] Address [address] [place] [address] Care Team Providers Care Equipment Processor Name Role Phone CruzTerri bolañosalejandro Lo DO Primary Care Provider Source Comments In the event this information is protected by the Federal Confidentiality of Alcohol and Drug AbusePatient Records regulations: The Federal rules restrict any use of the information to criminally investigate or prosecute any alcohol or drug abuse patient.[facility] Encounter Details Date Type Department Care Team (Late st Contact Info) Description 04/12/2020 Get Medical Advice Pain Management [address] [place] [address] Nelson Damon MD [address] [place] [address] RE: Visit Follow Up Question [...] N ot on file 03/09/2020 Data from: https://www.neighborhoodatlas.medicine.[facility]/. 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
--- OUTSIDE RECORDS SUMMARY | 2024-10-12 09:06 | XMS_ITS | Encounter Summary ---
Author Organization [facility] Address [address] [place] [address] Phone Care Team Providers Care Import/Export Agent Name Role Phone Unavailable Primary Care Provider Unavailabl e Encounter Details Date Type Department Care Team (Late st Contact Info) Description 05/01/2021 Orders Only [facility] [address] [place] [address] Conversion, Onbase Social History Tobacco Use Types [...]
--- OUTSIDE RECORDS SUMMARY | 2024-10-12 09:06 | XMS_ITS | Encounter Summary ---
Author Organization [facility] Address [address] [place] [address] Care Team Providers Care Wind Tunnel Engineer Name Role Phone Cruz, Emily Lo [...] Description 01/01/2022 Get Medical Advice Pain Management [address] [place] [address] Nelson Damon MD [address] [place] [address] Appointment Social History Tobacco Use [...] N ot on file 08/21/2021 Data from: https://www.neighborhoodatlas.medicine.[facility]/. 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
--- OUTSIDE RECORDS SUMMARY | 2024-10-12 09:06 | XMS_ITS | Encounter Summary ---
Author Organization [facility] Address [address] [place] [address] Care Team Providers Care Lens Edge Grinder Machine Name Role Phone Cruz, Emily Lo DO [...] Description 09/15/2021 Get Medical Advice Pain Management [address] [place] [address] Nelson Damon MD [address] [place] [address] Back and right side pain [...] Data from: https://www.neighborhoodatlas.medicine.[facility]/. 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
--- OUTSIDE RECORDS SUMMARY | 2024-10-12 09:06 | XMS_ITS | Encounter Summary ---
Author Organization [facility] Address [address] [place] [address] Phone Care Team Providers Care Level Designer Name Role Phone Unavailable Primary Care Provider Unavailabl e Encounter Details Date Type Department Care Team (Late st Contact Info) Description 03/30/2024 Scanned Document [facility] [address] [place] [id number] Scanning, Generic Provider Social History Tobacco Use [...]
--- OUTSIDE RECORDS SUMMARY | 2024-10-12 09:06 | XMS_ITS | Encounter Summary ---
Author Organization [facility] Address [address] [place] [address] Care Team Providers Care Entertainment Manager Name Role Phone CruzTerri bolañoscey Teresita Primary Care Provider Source Comments In the event this information is protected by the Federal Confidentiality of Alcohol and Drug AbusePatient Records regulations: The Federal rules restrict any use of the information to criminally investigate or prosecute any alcohol or drug abuse patient.[facility] Encounter Details Date Type Department Care Team (Late st Contact Info) Description 02/11/2022 Get Medical Advice Pain Management [address] [phone] Louise Suazo PA-C OPERS Social History Tobacco [...] N ot on file 08/21/2021 Data from: https://www.neighborhoodatlas.medicine.[facility]/. 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 Answer Date of Assessment Author No 09/28/2014 2:37 PM EDT Junior Lyons, MEAT STOCKER * Are you blind or do you [...] on filedocumented in this encounter Care Teams Entertainment Manager Relationship Specialty Start Date End Date Emily Cruz DO PCP - General Family Medicine 05/08/11 documented as of this encounter
--- OUTSIDE RECORDS SUMMARY | 2024-10-12 09:06 | XMS_ITS | Patient Health Record ---
Author Organization [facility] Address [facility] [place] [address] Care Team Providers Care Sumo Wrestler Name Role Phone Nuno Betancourt Unavailable [phone] Reason For Referral No Information Medications Medication [...] Status Risk Notes Problem Dermatophytosis of nail (425767296) Dermatophytosis of nail (110.1) Active confirmed Plan Of Treatment No Information Insurance Providers Payer Name Payer Address Payer Phone Subscriber Number Group Number Insured Name Patient Relationship to Insured Coverage Start Date Coverage End Date [facility] [address] [place] [address] [id number] Bud Fernanda clark Self - patient is the insured Medical (General) History Medical History History ICD Code hypertension
--- OUTSIDE RECORDS SUMMARY | 2024-10-12 09:06 | XMS_ITS | Encounter Summary ---
Author Organization [facility] Address [address] [place] [address] Care Team Providers Care Air Sampler Name Role Phone Cruz, Emily Lo DO Primary Care Provider Source Comments In the event this information is protected by the Federal Confidentiality of Alcohol and Drug AbusePatient Records regulations: The Federal rules restrict any use of the information to criminally investigate or prosecute any alcohol or drug abuse patient.[facility] Encounter Details Date Type Department Care Team (Late st Contact Info) Description 04/23/2020 Get Medical Advice Pain Management [address] [phone] Louise Suazo PA-C RE: Visit Follow Up [...] N ot on file 03/09/2020 Data from: https://www.neighborhoodatlas.medicine.[facility]/. 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
--- OUTSIDE RECORDS SUMMARY | 2024-10-12 09:06 | XMS_ITS | Encounter Summary ---
Author Organization [facility] Address [address] [place] [address] Care Team Providers Care Supervisor Motor Vehicle Assembly Name Role Phone Cruz, Emily Lo DO [...] Description 04/09/2020 Get Medical Advice Pain Management [address] [phone] Louise Suazo PA-C RE: Visit Follow Up [...] N ot on file 03/09/2020 Data from: https://www.neighborhoodatlas.medicine.[facility]/. 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
--- OUTSIDE RECORDS SUMMARY | 2024-10-12 09:06 | XMS_ITS | Encounter Summary ---
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 Answer Date of Assessment Author Yes 09/28/2014 2:37 PM EDT Junior Lyons, CHEMICAL TECHNICIAN * Do you have difficulty dressing or bathing? Answer Date of Assessment Author No 09/28/2014 2:37 PM EDT Junior Lyons, CHEMICAL TECHNICIAN * Because of a physical, mental, [...] on filedocumented in this encounter Care Teams Cylinder Die Machine Operator Relationship Specialty Start Date End Date Emily Cruz DO PCP - General Family Medicine 05/08/11 documented as of this encounter
--- OUTSIDE RECORDS SUMMARY | 2024-10-12 09:06 | XMS_ITS | Clinical Summary ---
Author Organization [facility] Address [address] [place] [address] Care Team Providers Care Sterilization Tech Name Role Phone Unallocated, Noms Provider Primary Care Provi heather Allergies No known active allergies Medications methylPREDNISol one (Medrol Dospak) 4 MG tabletsIndicati ons:Acute gout of left foot, unspecified cause Follow schedule on MEDROL PACK package instructions to be used as directed 21 tablet 5 Active tiZANidine (Zanaflex) 2 MG tablet Take 2 mg by mouth at bedtime 4 Active Active Problems No known active problems Family History Relation Name Status Comments Father [...] Smear 08/24/2011 08/23/2008 Influenza Vaccine (#1) 2024 , 03/23/2023, 03/12/2022, Additional history exists Care Teams Sterilization Tech Relationship Specialty Start Date End Date Unallocated, Noms Provider, [address] [place] [address] PCP - General Family Medicine 07/11/24
--- OUTSIDE RECORDS SUMMARY | 2024-10-12 09:06 | XMS_ITS | Encounter Summary ---
Author Organization [facility] Address [facility] [place] [address] Care Team Providers Care Material Checker Name Role Phone Cruz, Emily Teresita DO [...] Info) Description 10/10/2021 [place] [address] Provider, Ccf MyChart Message Regarding Financial Assistance [...] on file 08/21/2021 Data from: https://www.neighborhoodatlas.medicine.[facility]/. 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
--- OUTSIDE RECORDS SUMMARY | 2024-10-12 09:06 | XMS_ITS | Encounter Summary ---
Author Organization [facility] Address [address] [place] [address] Care Team Providers Care Foster Care Case Manager Name Role Phone Cruz, Emily Lo DO Primary Care Provider Source Comments In the event this information is protected by the Federal Confidentiality of Alcohol and Drug AbusePatient Records regulations: The Federal rules restrict any use of the information to criminally investigate or prosecute any alcohol or drug abuse patient.[facility] Encounter Details Date Type Department Care Team (Late st Contact Info) Description 02/10/2022 Get Medical Advice Pain Management [id number] [phone] Louise Suazo PA-C Pain flare up Social [...] ot on file 08/21/2021 Data from: https://www.neighborhoodatlas.medicine.[facility]/. 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 Answer Date of Assessment Author No 09/28/2014 2:37 PM EDT Junior Lyons, CULINARY ART TEACHER * Are you blind or do you [...] on filedocumented in this encounter Care Teams Foster Care Case Manager Relationship Specialty Start Date End Date Emily Cruz DO PCP - General Family Medicine 05/08/11 documented as of this encounter
--- OUTSIDE RECORDS SUMMARY | 2024-10-12 09:07 | XMS_ITS | Encounter Summary ---
Author Organization [facility] Address [address] [place] [address] Care Team Providers Care Burner Operator Name Role Phone Cruz, Emily Lo DO Primary Care Provider Source Comments In the event this information is protected by the Federal Confidentiality of Alcohol and Drug AbusePatient Records regulations: The Federal rules restrict any use of the information to criminally investigate or prosecute any alcohol or drug abuse patient.[facility] Encounter Details Date Type Department Care Team (Late st Contact Info) Description 12/09/2021 Get Medical Advice Pain Management [id number] [phone] Louise Suazo PA-C Medication Social History Tobacco [...] N ot on file 08/21/2021 Data from: https://www.neighborhoodatlas.medicine.[facility]/. 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
--- NOTE | 2024-10-12 09:19 | PM.CN ---
Consult Note: HPI Data of Consult Patient: known to practice within the last 3 years Consult date: 10/12/24 Requesting Physician: Xochitl Tafoya NP Primary Care Provider: Non-Staff Physician, MD Consult Narrative Reason for consult: low back and RLE pain Narrative: 64 year old female with chronic low back and RLE pain presents for evaluation. hx of lumbar radiculopathy and FM, was a previous pt of [facility] pain management but looking to establish care closer to home. pt has failed to benefit from > 6 weeks of PT/HEP, heat, ice, tylenol. recent uds positive for THC, cocaine, oxycodone, hydromorphone, and flexeril as well as prescribed pregabalin. at this time pt is an injection only care plan due to UDS results. pain today >10 /10 with numbness tingling weakness of RLE. reports sharp burning pain. utilizing medtronic scs with no improvement at this time. cc:: CC: Xochitl Tafoya NP Review of Systems ROS Musculoskeletal Reports: back pain and extremity pain Meds Home Medications and Allergies Home Medications ?Medication ?Instructions ?Recorded ?Confirmed ?Type albuterol 90 mcg/actuation aerosol mcg inhalation 09/25/24 History inhaler aspirin 81 mg tablet 81 mg PO DAILY 09/25/24 09/25/24 History atorvastatin 80 mg tablet 80 mg PO DAILY 09/25/24 09/25/24 History benzonatate 100 mg capsule 100 mg PO TID 09/25/24 09/25/24 History diclofenac sodium 1 % topical gel 4 g topical QID 09/25/24 09/25/24 History duloxetine 30 mg capsule,delayed 30 mg PO BID 09/25/24 09/25/24 History release (Cymbalta) ferrous sulfate 325 mg (65 mg 325 mg PO TID 09/25/24 09/25/24 History iron) tablet furosemide 40 mg tablet 20 mg PO DAILY 09/25/24 09/25/24 History hydrocodone 5 mg-acetaminophen 325 1 tab PO TID PRN pain #90 tabs 09/25/24 Rx mg tablet hydroxychloroquine 200 mg tablet 200 mg PO BID 09/25/24 09/25/24 History lidocaine 5 % topical patch 1 patch topical DAILY 09/25/24 09/25/24 History (Lidoderm) magnesium 200 mg tablet 200 mg PO DAILY 09/25/24 09/25/24 History metoprolol tartrate 25 mg tablet 25 mg PO BID 09/25/24 09/25/24 History nitroglycerin 0.2 mg/hr 1 patch transdermal DAILY 09/25/24 09/25/24 History transdermal 24 hour patch (Nitro-Dur) potassium chloride 20 mEq oral 20 meq PO DAILY 09/25/24 09/25/24 History packet (Klor-Con) pregabalin 100 mg capsule (Lyrica) 100 mg PO TID 09/25/24 09/25/24 History tizanidine 4 mg tablet 8 mg PO TID PRN muscle spasticity 09/25/24 09/25/24 History Allergies Allergy/AdvReac Type Severity Reaction Status Date / Time No Known Drug Allergies Allergy Verified 09/25/24 15:14 Exam Constitutional Documenting provider has reviewed patient's vital signs: yes Common normals: no apparent distress, oriented x3, healthy appearing, alert and well nourished General appearance: cooperative HENMT Common normals: normocephalic, hearing grossly normal bilaterally and moist oral mucous membranes Head and scalp: normocephalic Eye Common normals: PERRL Pupil: PERRL Neck & C-Spine Common normals: full ROM General: normal visual inspection Chest Common normals: inspection of chest normal Respiratory Common normals: normal respiratory effort, no retractions and no use of accessory muscles Back & Pelvis Lumbar spine/lower back: ROM limited, pain with ROM and straight leg raise positive right Sacroiliac joints: SI joint(s) abnormal Other: right sij positive manisha(patricks), gaenslens, thigh thrust, compression test strength 4/5 in RLE 5/5 in LLE decreased sensation to right L4,5,S1 Neuro Common normals: oriented x3 Sensorium/orientation: alert Psych Common normals: mental status grossly normal, thought process normal, cooperative, affect normal, speech normal and activity/motor behavior normal Speech: normal speech Thought process: normal thought process Results Imaging Lumbar MRI: Attestation: I have reviewed the pertinent imaging results. Radiologist's impression: FINDINGS: The bones of the lumbar spine are in anatomic alignment. There is preservation of vertebral body heights. There is moderate severe disc height loss at L4-5 and L5-S1. There is a benign-appearing hemangioma in the T12 vertebral body. There is Modic type I endplate edema and Modic type II fatty endplate degenerative change at L5-S1. The conus terminates at the mid L1 vertebral body level. No epidural or paraspinous fluid collection is appreciated. There is right-sided renal cortical atrophy. At T12-L1: There is a normal disc, central canal, and neural foramen. At L1-L2: There is a normal disc, central canal, and neural foramen. At L2-L3: There is a normal disc, central canal, and neural foramen. At L3-L4: There is a normal disc, central canal, and neural foramen. At L4-L5: There is a broad-based disc bulge with facet hypertrophy and ligamentum flavum thickening. There is mild spinal canal narrowing. There is a focal left foraminal and lateral disc protrusion appearing to moderate left neural foraminal narrowing with mild right neural foraminal narrowing. At L5-S1: There is a circumferential disc bulge with endplate osteophyte formation and facet hypertrophy. There is severe right and moderate to severe left neural foraminal narrowing with mass effect on the exiting right L5 nerve roots. There is mild to moderate spinal canal stenosis. Additional Findings Additional findings: If on a controlled substance or opioids, I have checked an [place]AR[place] report on this patient and there are no aberrancies noted in the prescribing history.??If on a controlled substance or opioid a drug screen was completed and reviewed within the last year, and if there has not been a drug screen completed we ordered one today to monitor higher risk, state monitored pain medication use. As part of providing excellent, safe, comprehensive care, the following was completed at our patient's visit: 1. A medication reconciliation and review to ensure accurate knowledge of current/active medications, including asking our patients to inform us about any [id number] medications or herbal remedies/nutritional supplements/alternative remedies. 2. A review to specifically ensure our patients have had annual screening for screening for depression, screening for tobacco use, and screening for unhealthy alcohol use. For concerning screenings had a discussion with the patient, provided patient education, and recommended follow-up with primary care provider when appropriate. If patient noted with a risk of falling, they received education on strength, gait, and balance training to prevent future risk of falling. Portions of this note may have been carried over from the previous visit and updated as appropriate. Please note this office utilizes paper charting in addition to the electronic medical record. A list of current medications, vitals, and PMH is available there as the clinical staff outside of myself do not have access to [facility] charting during the clinic day operations. As part of providing quality comprehensive care the current medications, vitals, and PMH were reviewed in the paper chart. Assessment and Plan Assessment and Plan (1) Lumbar stenosis with neurogenic claudication: Assessment and Plan: The patient has had over 3 months of moderate to severe low back and RLE pain with functional impairment and inadequate response to conservative care including NSAIDS (unless there are contraindication such as concurrent blood thinners), multiple oral or topical pain medications, and home exercise program/physical therapy.? Patient has completed >6 weeks of guided home exercise program and/or formal physical therapy program without relief of their symptoms.? The Oswestry Disability Index was completed, and the patient scored a 82%.? (2) Lumbar radiculopathy: (3) Sacroiliitis: Plan 64 year old female with severe low back and RLE pain. MRI reviewed with pt, declining NS consultation. has scs in place, has not met with rep in > 1 year. pt reports she has never utilized drugs outside of prescribed and THC gummies from a dispencary, however at this time we are considering her an injection only care plan due to UDS results. advised pt to f/u with pcp regarding further medication management/care. will trial right L4-5 L5-S1 TFESI under fluoroscopy and f/u after injection.
== END 2024-10-12 09:03 | disposition home or self-care (01) ==
LOC: PM 09:02
PROVIDERS: Visit Provider Nurse Practitioner
DX: M48.062 Spinal stenosis, lumbar region with neurogenic claudication (principal); M54.16 Radiculopathy, lumbar region; M46.1 Sacroiliitis, not elsewhere classified
CPT/HCPCS: G0463